=== PATIENT | male | born 1965 | race Caucasian/White ===

== ENCOUNTER 2021-03-10 01:19 | Inpatient (IN) | payer OTHER, SELFPAY ==
[2021-03-10] VITALS (54 sets, daily range): BP systolic 89–127; BP diastolic 49–77; PULSE 58–106; RESP 15–25; TEMP 37–38.4; O2SAT 82–94; BMI 31.0; BMI 31.1
--- NOTE | 2021-03-10 01:40 | XRR_ITS ---
PROCEDURE INFORMATION: Exam: XR Chest Exam date and time: 03/10/2021 1:40 AM Age: 55 years old Clinical indication: Cough and dyspnea; Additional info: SOB TECHNIQUE: Imaging protocol: XR of the chest. Views: 1 view. COMPARISON: CR Chest 1 [place] [id number] 04/28/2018 10:55 PM FINDINGS: Lungs: Low lung volumes. There is increased lung markings and bilateral airspace opacities, consistent with multifocal pneumonia. Pulmonary congestion can this appearance. No large pleural effusion or pneumothorax. Pleural spaces: See Lungs finding. Heart/Mediastinum: Stable cardiomediastinal silhouette. Bones/joints: Unremarkable. XR/XR chest 1V portable [id number] IMPRESSION: Imaging findings of multifocal pneumonia. Pulmonary congestion can have this appearance. Radiation Dose CTDIVOL = (mGy): DLP = (mGy-cm)
--- NOTE | 2021-03-10 01:40 | ECG_ITS ---
[facility] Test Date: 2021-03-10 Pat Name: Grey Naylor Department: Room: Gender: Male Gunner'S Mate: : 1965 Requested By: Alfred Lemos Order Number: [id number] Chase MD: JAME DOWNING Measurements Intervals [place] Rate: 86 P: 18 MT: 155 QRS: -40 QRSD: 138 T: -3 QT: 349 QTc: 418 Interpretive Statements SINUS RHYTHM LEFT AXIS DEVIATION [QRS AXIS < -30] RIGHT BUNDLE BRANCH BLOCK [120+ ms QRS DURATION, UPRIGHT V1, 40+ ms S IN I/aVL/V4/V5/V6] VOLTAGE CRITERIA FOR LVH [MEETS CRITERIA IN ONE OF: R(aVL), S(V1), R(V5), R(V5/V6)+S(V1)] Compared to ECG 04/28/2018 22:49:48 Left-axis deviation now present Left ventricular hypertrophy now present Myocardial infarct finding no longer present Electronically Signed On 03-11-2021 12:54:22 COMPONENT INSPECTOR by JAME DOWNING [id number]
[2021-03-10 01:52] LABS: Basophils % 0.4 %; Eosinophils % 0.4 %; Hematocrit 49.9 % (42.0-52.0); Hemoglobin 17.2 g/dL (11.7-16.6); Mean Corpuscular HGB Conc 34.5 g/dL (30.0-36.0); Mean Corpuscular Hemoglobin 29.9 pg (28.0-34.0); Mean Corpuscular Volume 86.8 fl (80-94); Mean Platelet Volume 8.9 fL (7.4-10.4); Monocytes # 0.3 10^3/uL (0.2-0.9); Monocytes % 3.3 %; Neutrophils # 8.33 10^3/uL (1.8-7.7); Neutrophils % 84.6 %; Nucleated Red Blood Cells % 0 %; Platelet Count 185 10^3/cmm (130-400); Red Blood Count 5.75 10^6/uL (4.1-5.3); Red Cell Distribution Width 12.8 % (12.1-15.1); White Blood Count 9.8 10^3/uL (4.0-10.0)
[2021-03-10] MEDS: dexamethasone 4 mg/mL INJ 6 MG IVP (01:54)
[2021-03-10] MEDS: ondansetron 2 mg/ML SDV 2 mL 4 MG IV (01:55)
[2021-03-10 02:06] LABS: Lactic Sepsis W/Reflex 1.4 mmol/L (0.5-2.2)
[2021-03-10 02:07] LABS: Partial Thromboplastin Time 28.2 SECONDS (23.9-36.7)
[2021-03-10 02:09] LABS: Troponin T (5th) Once 20 ng/L (0-15)
[2021-03-10 02:13] LABS: D Dimer 0.56 ug/mIFEU (0-0.59)
[2021-03-10 02:15] LABS: NT Pro B Type Natriuretic Pept 93 pg/mL (0-125); Procalcitonin 0.18 ng/mL (0-0.5)
[2021-03-10 02:26] LABS: Alanine Aminotransferase 168 U/L (0-41); Albumin Level 3.8 g/dL (3.5-5.2); Alkaline Phosphatase 54 IU/L (40-130); Anion Gap 20.6 (5-19); Aspartate Amino Transferase 101 U/L (0-40); Blood Urea Nitrogen 25 mg/dL (6-20); C Reactive Protein 113.3 mg/L (0.0-4.9); Calcium 8.5 mg/dL (8.5-10.5); Carbon Dioxide 23 mmol/L (22-29); Chloride 93 mmol/L (98-107); Globulin 3.4 g/dL (1.3-4.6); Glomerular Filtration Rate 56.9 mL/min (90-130); Glucose 130 mg/dL (65-115); Osmolality Calculated 282 mOsm/kg (285-295); Potassium 3.6 mmol/L (3.5-5.1); Sodium 133 mmol/L (136-145); Total Bilirubin 0.6 mg/dL (0.15-1.2); Total Protein 7.2 g/dL (6.6-8.7)
[2021-03-10 02:28] LABS: Creatinine Clr Calc Pharmacy 71.4027
[2021-03-10 03:35] LABS: ABG PCO2 36.9 mmHg (35-45); ABG PH Result 7.47 (7.35-7.45); Arterial Blood Gas Hematocrit 49.5 % (42-52); Blood Gas Operator Identificat glc; Blood Gas Sample Site Brachial, right; Blood Gas Sample Type Arterial; HCO3 ABG 26.6 mmol/L (22-26); Oxygen Device NC
--- NOTE | 2021-03-10 03:38 | W.ED.SOB ---
HPI - SOB/Dyspnea General: Chief Complaint: Shortness of Breath/Dyspnea Stated Complaint: SOB Time Seen by Provider: 03/10/21 01:28 History of Present Illness: HPI Narrative: 55-year-old male with a history of coronary disease. He was diagnosed with COVID-19 around 10 days ago. He states he at one point had a fairly severe cough, with pleuritic chest pain. He says most of those symptoms had resolved. He has had some diarrhea. Tonight, he was not feeling well and his checked a pulse ox on him. It read in the mid 80% range on room air. This worried him so he came to the emergency room he does states that he feels somewhat better with oxygen MD elicited complaint: shortness of breath and cough Pertinent past history: other Onset (ago): day(s) Context: recent illness Timing: constant Severity: moderate Exacerbating factors: exertion Relieving factors: oxygen Known history of: other Associated symptoms: Reports cough, dizziness and nausea; Deny abdominal pain, chest pain, diaphoresis, fever(s) or rash Review of Systems Const: Denies: fever(s) or diaphoresis Card: Denies: chest pain GI: Reports: nausea; Denies: abdominal pain Neuro: Reports: dizziness PFS ED PFSH: Medical History (Updated 03/10/21 @ 03:45 by Alfred Doe DO) History of hypertension Hx of arteriosclerotic cardiovascular disease Hx of gastroesophageal reflux (GERD) Hx of myocardial infarction Surgical History (Updated 10/30/20 @ 14:24 by LISA Nolen) History of carpal tunnel release of both wrists Hx of coronary angioplasty Family History Mother CHF (congestive heart failure) COPD (chronic obstructive pulmonary disease) Social History Smoking and tobacco status: former smoker Physical Exam Const: COMMON NORMALS: no acute distress, patient oriented x3 and alert GENERAL APPEARANCE: cooperative HENMT: COMMON NORMALS: normocephalic HEAD & SCALP: normocephalic Eye: COMMON NORMALS: Equal, round and reactive pupils present and EOMs intact bilaterally PUPIL: Yes Equal, round and reactive pupils present Chest: COMMONS NORMALS: normal inspection of the chest Resp: COMMON NORMALS: No retractions and clear to auscultation bilaterally EFFORT & INSPECTION: Yes tachypneic AUSCULTATION: clear to auscultation bilaterally Cardio: COMMON NORMALS: regular rate, regular rhythm and Peripheral pulses 2+ throughout RATE: regular rate RHYTHM: regular rhythm PERIPHERAL PULSES: Peripheral pulses 2+ throughout GI: COMMON NORMALS: Normal to inspection, nondistended, normoactive bowel sounds present and Soft to palpation PALPATION: Yes Soft to palpation Extremity: COMMON NORMALS: no pedal edema Neuro: COMMON NORMALS: patient oriented x3 SENSORIUM/ORIENTATION: Yes alert Course Consultations: Consultation #1: bayron Vital Signs: Vital signs: Vital Signs Temperature 98.6 F 03/10/21 01:20 Pulse Rate 85 03/10/21 01:20 Respiratory Rate 18 03/10/21 01:20 Blood Pressure 113/67 03/10/21 01:20 Pulse Oximetry 85 L 03/10/21 01:20 MDM - SOB/Dyspnea MDM Narrative: Medical decision making narrative: 55-year-old hypoxic male presents via EMS. Off of oxygen here, he was in the low 80s on room air. He is placed on 4 L, and is satting 89 to 90%. Blood gas reflects this as well on that same 4 L. He is afebrile here. White blood cell count 9.8. Hemoglobin 17.2. His D-dimer is negative. His CRP is up. His chest x-ray shows bilateral hazy infiltrates indicative of pneumonitis such as COVID-19. He is given dexamethasone here in oxygen. He will be admitted for hypoxic respiratory failure Lab Data: Labs: Lab Results 03/10/21 03/10/21 03/10/21 01:37 01:37 01:37 WBC 9.8 10^3/uL 10^3/ uL (4.0-10.0) RBC 5.75 10^6/uL H 10 ^6/uL (4.1-5.3) Hgb 17.2 g/dL H g/dL (11.7-16.6) Hct 49.9 % % (42.0-52.0) MCV 86.8 fl fl (80-94) MCH 29.9 pg pg (28.0-34.0) MCHC 34.5 g/dL g/dL (30.0-36.0) RDW 12.8 % % (12.1-15.1) Plt Count 185 10^3/cmm 10^3 /cmm (130-400) MPV 8.9 fL fL (7.4-10.4) Neut % (Auto) 84.6 % % Lymph % (Auto) 10.0 % % Stanton % (Auto) 3.3 % % Eos % (Auto) 0.4 % % Baso % (Auto) 0.4 % % Neut # (Auto) 8.33 10^3/uL H 10 ^3/uL (1.8-7.7) Lymph # (Auto) 1.0 10^3/uL 10^3/ uL (0.8-4.8) Stanton # (Auto) 0.3 10^3/uL 10^3/ uL (0.2-0.9) Eos # (Auto) 0.0 10^3/uL 10^3/ uL (0.0-0.8) Baso # (Auto) 0.0 10^3/uL 10^3/ uL (0.0-0.1) Nucleated RBC % (a uto) 0 % % Nucleated RBCs # 0.0 /100WBC /100W BC PT 14.60 SECONDS SEC ONDS (12.1-14.9) INR 1.10 (0.8-1.2) APTT 28.2 SECONDS SECO NDS (23.9-36.7) D-Dimer 0.56 ug/mIFEU ug/ mIFEU (0-0.59) Specimen Type Sample Site ABG pH ABG pCO2 ABG pO2 ABG HCO3 ABG Base Excess Shmuel Test Hematocrit O2 Delivery Device O2 Liters/Min FiO2 Post Anesthesia Care Unit Nurse ID Sodium 133 mmol/L L mmol /L (136-145) Potassium 3.6 mmol/L mmol/L (3.5-5.1) Chloride 93 mmol/L L mmol/ L (98-107) Carbon Dioxide 23 mmol/L mmol/L (22-29) Anion Gap 20.6 H (5-19) BUN 25 mg/dL H mg/dL (6-20) Creatinine 1.3 mg/dL H mg/dL (0.7-1.2) GFR Calculation 56.9 mL/min L mL/ min (90-130) Glucose 130 mg/dL H mg/dL (65-115) Calculated Osmolal ity 282 mOsm/kg L mOs m/kg (285-295) Lactic Acid Calcium 8.5 mg/dL mg/dL (8.5-10.5) Total Bilirubin 0.6 mg/dL mg/dL (0.15-1.2) AST 101 U/L H U/L (0-40) ALT 168 U/L H U/L (0-41) Alkaline Phosphata se 54 IU/L IU/L (40-130) Troponin T Gen 5 n g/L C-Reactive Protein 113.3 mg/L H mg/L (0.0-4.9) NT-Pro-B Natriuret Pep 93 pg/mL pg/mL (0-125) Total Protein 7.2 g/dL g/dL (6.6-8.7) Albumin 3.8 g/dL g/dL (3.5-5.2) Globulin 3.4 g/dL g/dL (1.3-4.6) Procalcitonin 0.18 ng/mL ng/mL (0-0.5) 03/10/21 03/10/21 03/10/21 01:37 01:37 03:23 WBC RBC Hgb Hct MCV MCH MCHC RDW Plt Count MPV Neut % (Auto) Lymph % (Auto) Stanton % (Auto) Eos % (Auto) Baso % (Auto) Neut # (Auto) Lymph # (Auto) Stanton # (Auto) Eos # (Auto) Baso # (Auto) Nucleated RBC % (a uto) Nucleated RBCs # PT INR APTT D-Dimer Specimen Type Arterial Sample Site Brachial, right ABG pH 7.47 H (7.35-7.45) ABG pCO2 36.9 mmHg mmHg (35-45) ABG pO2 60.0 mmHg L mmHg (80.0-100.0) ABG HCO3 26.6 mmol/L H mmo l/L (22-26) ABG Base Excess 3.0 mmol/L H mmol /L (-2.0-2.0) Shmuel Test N/a Hematocrit 49.5 % % (42-52) O2 Delivery Device Nc O2 Liters/Min 4.0 % % FiO2 36.0 % % Post Anesthesia Care Unit Nurse ID glc Sodium Potassium Chloride Carbon Dioxide Anion Gap BUN Creatinine GFR Calculation Glucose Calculated Osmolal ity Lactic Acid 1.4 mmol/L mmol/L (0.5-2.2) Calcium Total Bilirubin AST ALT Alkaline Phosphata se Troponin T Gen 5 n g/L 20 ng/L H ng/L (0-15) C-Reactive Protein NT-Pro-B Natriuret Pep Total Protein Albumin Globulin Procalcitonin Discharge Plan Discharge Patient Disposition: Admitted As Inpatient Clinical Impression: COVID-19 Respiratory failure with hypoxia Qualifiers: Chronicity: acute Qualified Code(s): J96.01 - Acute respiratory failure with hypoxia Condition: Fair Coding Level of Care Code ED Solar Mechanical Engineer for [facility] Fwd Exam Comprehensive
[2021-03-10] MEDS: enoxaparin 40 mg/0.4 mL Syringe SUBCUT (03:58)
--- NOTE | 2021-03-10 05:31 | P.HP_ITS ---
Providers/Chief Complaint Primary Care Provider: Soraya Villa APN Chief Complaint: SOB History of Present Illness 51-year-old with past medical history significant for hypertension, dyslipidemia, coronary artery disease, gastroesophageal reflux disease, chronic obstructive pulmonary disease and recent diagnosis of COVID-19 10 days prior was presented to the hospital with hypoxia. Patient stated that he was seen by his primary care physician at the onset of symptoms during which time he was treated with a Z-Ike and a course of steroids. He stated his respiratory status had improved however earlier today had checked his pulse ox at home which was noted to be in 80s. Denied fever or chills.Laboratory workup on arrival showed a WBC of 9.8, hemoglobin of 17.2, hematocrit of 49.9 and platelet count of 185. Arterial blood gases showed a pH of 7.47, pCO2 of 36.9, PO2 of 60.0 and a bicarb of 26.6. On 4 L of O2 via nasal cannula. Sodium 133, potassium 3.6, chloride 93, bicarb 23, BUN 25 and a creatinine of 1.3. Lactic acid of 1.4. AST of 101. ALT of 168. Procalcitonin 0.18. Patient was comfortable at the time of my evaluation stating he did not have any respiratory distress.In emergency room patient was given Decadron 6 mg IV x1. Review of Systems General: Reports: 10 or more systems reviewed and unremarkable except in HPI and below Medications/Allergies Home Medications Medication Instructions Recorded Confirmed Last Taken Type coenzyme Q10 10 mg capsule 10 mg PO DAILY cap 11/15/19 03/10/21 Unknown History omega-3 fatty acids 1,000 mg 3,000 mg PO DAILY cap 11/15/19 03/10/21 Unknown History capsule alprazolam 0.25 mg tablet 0.25 mg PO DAILY PRN 02/07/20 03/10/21 Unknown History aspirin 81 mg tablet,delayed 81 mg PO DAILY #90 tab 02/07/20 03/10/21 Unknown Rx release pantoprazole 40 mg tablet,delayed 40 mg PO DAILY #90 tab 06/11/20 03/10/21 Unknown Rx release nitroglycerin 0.4 mg sublingual 0.4 mg SUBLINGUAL Q5M PRN #25 tab 09/17/20 03/10/21 Unknown Rx tablet cinnamon bark 500 mg capsule 500 mg PO DAILY 10/30/20 03/10/21 Unknown History clopidogrel 75 mg tablet 75 mg PO DAILY #90 tab 11/01/20 03/10/21 Unknown Rx isosorbide mononitrate 60 mg 60 mg PO DAILY #90 tab 11/01/20 03/10/21 Unknown Rx tablet,extended release 24 hr lisinopril 40 mg tablet 40 mg PO DAILY #90 tab 11/01/20 03/10/21 Unknown Rx chlorthalidone 25 mg tablet 25 mg PO DAILY #90 tab 11/22/20 03/10/21 Unknown Rx rosuvastatin 20 mg tablet 20 mg PO DAILY #90 tab 12/20/20 03/10/21 Unknown Rx metoprolol tartrate 50 mg tablet 50 mg PO BID #60 tab 01/25/21 03/10/21 Unknown Rx Allergies Allergy/AdvReac Type Severity Reaction Status Date / Time No Known Allergies Allergy Verified 10/30/20 13:31 PFSH Acute PFSH: Medical History (Updated 03/10/21 @ 03:45 by Alfred Doe DO) History of hypertension Hx of arteriosclerotic cardiovascular disease Hx of gastroesophageal reflux (GERD) Hx of myocardial infarction Surgical History (Updated 10/30/20 @ 14:24 by LISA Nolen) History of carpal tunnel release of both wrists Hx of coronary angioplasty Family History Mother CHF (congestive heart failure) COPD (chronic obstructive pulmonary disease) Social History Smoking and tobacco status: former smoker Vitals/I&O/Wt Last Vital Signs Temp 98.6 F 03/10/21 01:20 Pulse 84 03/10/21 02:05 Resp 24 H 03/10/21 02:05 BP 89/55 03/10/21 04:10 Pulse Ox 88 L 03/10/21 04:10 Weight last 48 hrs Weight 95.254 kg Physical Exam Narrative: EXAM NARRATIVE: General : NAD on 4L o2 via NC HEENT; Grossly unremarkable CVS; RRR Chest : Decrease at bases, no distress Abd: Soft, Non-tender. Ext: No edema Data : 03/10/21 01:37 03/10/21 01:37 Micro: Microbiology 03/10/21 01:37 Blood Culture - Preliminary Blood SPECIMEN COLLECTED 03/10/21 01:37 Blood Culture - Preliminary Blood SPECIMEN COLLECTED A&P Assessment and plan (1) COVID-19: Status: Acute (2) History of hypertension: Status: Acute (3) Respiratory failure with hypoxia: Status: Acute Qualifiers: Chronicity: acute Qualified Code(s): J96.01 - Acute respiratory failure with hypoxia Additional A&P Information COVID-19 Pneumonia with hypoxia Decadron 6 mg IV daily x 10 days Procal negative - monitor off abx Monitor covid 19 labs Currently req 4L of o2 via NC Wean as tolerated Home o2 eval prior to discharge COPD Duoneb q6hr Remainder as noted above. DVT ppx Lovenox 40 mg SQ daily Additional Medical Problems Coronary artery disease Hypertension Dyslipidemia GERD Attestations Medical Necessity Statement*: Anticipate > 2 midnight stay in hospital for eval and treatment Time Spent in Patient Care: Greater than 35 minutes (>than 50% of time spent in counselling and/or direct pt care on unit) . Coding Level of Care Code Acute Marine Services Technician for [facility] Diagnoses COVID-19 U07.1 History of hypertension Z86.79 Respiratory failure with hypoxia J96.01 Chronicity: acute
--- NOTE | 2021-03-10 07:41 | PC.NURSE ---
RT called, coming to do breathing tx now.
[2021-03-10] MEDS: ipratropium-albuterol 3 mL Neb INHALATION ×4 (07:58→19:55)
[2021-03-10] MEDS: aspirin 81 mg EC Tablet PO (08:32)
[2021-03-10] MEDS: clopidogrel 75 mg Tablet PO (08:33)
[2021-03-10] MEDS: pantoprazole DR 40 mg Tablet PO (08:33)
[2021-03-10] MEDS: atorvastatin 40 mg Tablet 80 MG PO (08:33)
--- NOTE | 2021-03-10 08:38 | PC.NURSE ---
Pt placed on operator control room prior to this RN assuming care of pt.
--- NOTE | 2021-03-10 08:39 | PC.NURSE ---
Intermittent pneumatic compression not available in the ER.
[2021-03-10] MEDS: metoprolol tartrate 50 mg Tablet PO (08:51)
[2021-03-10] MEDS: acetaminophen 325 mg Tablet 650 MG PO (15:33)
--- NOTE | 2021-03-10 16:30 | PM.PN ---
Subjective Subjective: Interval history: Patient was seen and examined this morning, continues to have shortness of breath, currently requiring 10 Ls supplemental oxygen through HFNC, noted T-max: 101.1 , blood pressure is soft, evening dose of metoprolol has been held. His vitals and labs have been reviewed. Medications: Reviewed: Yes Vitals/I&O/Wt Last Vital Signs Temp 99 F 03/10/21 15:59 Pulse 101 H 03/10/21 16:00 Resp 17 03/10/21 16:00 BP 127/76 03/10/21 15:59 Pulse Ox 88 L 03/10/21 16:00 Weight last 48 hrs Weight 95.572 kg Weight 95.254 kg Physical Exam Const: COMMON NORMALS: patient oriented x3 HENMT: COMMON NORMALS: atraumatic HEAD & SCALP: atraumatic Resp: EFFORT & INSPECTION: Yes tachypneic, Yes respiratory distress and Yes Actively coughing OTHER: Diminished air entry bilaterally Cardio: COMMON NORMALS: regular rate, regular rhythm, S1 normal heart sound present, S2 normal heart sound present, No gallops present (Cardio), No murmurs present (Cardio), No rub (Cardio) and Peripheral pulses 2+ throughout RATE: regular rate RHYTHM: regular rhythm HEART SOUNDS: S1 normal heart sound present and S2 normal heart sound present PERIPHERAL PULSES: Peripheral pulses 2+ throughout GI: COMMON NORMALS: Normal to inspection, nondistended, normoactive bowel sounds present, Soft to palpation, non-tender, No hepatosplenomegaly present and no masses AUSCULTATION: Yes normoactive bowel sounds PALPATION: Yes Soft to palpation and Yes No hepatosplenomegaly present RECTAL EXAM: Yes deferred Extremity: COMMON NORMALS: no clubbing, cyanosis or edema and no pedal edema Neuro: COMMON NORMALS: patient oriented x3 Data : 03/10/21 01:37 03/10/21 01:37 Micro: Microbiology 03/10/21 01:37 Blood Culture - Preliminary Blood SPECIMEN COLLECTED 03/10/21 01:37 Blood Culture - Preliminary Blood SPECIMEN COLLECTED A&P Assessment and plan (1) COVID-19: Status: Acute (2) History of hypertension: Status: Acute (3) Respiratory failure with hypoxia: Status: Acute Qualifiers: Chronicity: acute Qualified Code(s): J96.01 - Acute respiratory failure with hypoxia Additional A&P Information Acute hypoxic respiratory failure secondary to Covid pneumonia. Monitor inflammatory markers : ESR , CRP, LDH, ferritin, D-dimer. Monitor x-ray, chest , ABG, blood cultures. Procal negative. Remdesivir 5-day course Decadron 6 mg IV daily x 10 days Consider tocilizumab DuoNebs, Advair inhaler Empirically on ceftriaxone and azithromycin Ascorbic acid and Zinc Lovenox 40 subcu daily Supplemental oxygen as needed COPD not in exacerbation Duoneb q6hr Remainder as noted above. DVT ppx Lovenox 40 mg SQ daily Additional Medical Problems Coronary artery disease Hypertension Dyslipidemia GERD Attestations Medical Necessity Statement*: Patient needs to be in hospital for management of Covid pneumonia Coding Level of Care Code Acute Business And Financial Counsel for [facility] Fwd Exam Detailed Diagnoses COVID-19 U07.1 History of hypertension Z86.79 Respiratory failure with hypoxia J96.01 Chronicity: acute
[2021-03-10 17:01] LABS: INR 1.12 (0.8-1.2)
[2021-03-10] MEDS: azithromycin 500 MG in sodium chloride 0.9% 250 ML 250 MG IV (17:34)
[2021-03-10] MEDS: ascorbic acid 500 mg Tablet 1000 MG PO (17:39)
[2021-03-10] MEDS: remdesivir 200 MG in sodium chloride 0.9% (100 ml) 60 ML 100 MG IV (18:29)
[2021-03-10] MEDS: cefTRIAXone 1,000 MG in sodium chloride 0.9% (plus) 50 ML 100 MG IV (19:17)
[2021-03-11] VITALS (14 sets, daily range): BP systolic 90–132; BP diastolic 47–87; PULSE 68–100; RESP 16–20; TEMP 36.6–37.1; O2SAT 86–96
[2021-03-11] MEDS: enoxaparin 40 mg/0.4 mL Syringe SUBCUT (04:07)
[2021-03-11] MEDS: acetaminophen 325 mg Tablet 650 MG PO (04:10)
[2021-03-11 07:02] LABS: Basophils % 0.1 %; Eosinophils % 0.1 %; Hematocrit 45.8 % (42.0-52.0); Hemoglobin 15.3 g/dL (11.7-16.6); Lymphocytes # 1.3 10^3/uL (0.8-4.8); Mean Corpuscular HGB Conc 33.4 g/dL (30.0-36.0); Mean Corpuscular Hemoglobin 29.2 pg (28.0-34.0); Mean Corpuscular Volume 87.4 fl (80-94); Mean Platelet Volume 9.1 fL (7.4-10.4); Monocytes # 0.3 10^3/uL (0.2-0.9); Monocytes % 3.2 %; Neutrophils % 83.1 %; Nucleated Red Blood Cells % 0 %; Platelet Count 171 10^3/cmm (130-400); Red Blood Count 5.24 10^6/uL (4.1-5.3); Red Cell Distribution Width 13.1 % (12.1-15.1); White Blood Count 9.6 10^3/uL (4.0-10.0)
[2021-03-11 07:32] LABS: Alanine Aminotransferase 121 U/L (0-41); Albumin Level 3.3 g/dL (3.5-5.2); Alkaline Phosphatase 51 IU/L (40-130); Aspartate Amino Transferase 72 U/L (0-40); Blood Urea Nitrogen 25 mg/dL (6-20); Calcium 8.4 mg/dL (8.5-10.5); Carbon Dioxide 26 mmol/L (22-29); Chloride 98 mmol/L (98-107); Globulin 2.5 g/dL (1.3-4.6); Glucose 93 mg/dL (65-115); Magnesium 1.7 mg/dL (1.7-2.3); NT Pro B Type Natriuretic Pept 33 pg/mL (0-125); Osmolality Calculated 286 mOsm/kg (285-295); Sodium 136 mmol/L (136-145); Total Bilirubin 0.5 mg/dL (0.15-1.2); Total Protein 5.8 g/dL (6.6-8.7)
[2021-03-11 07:33] LABS: Anion Gap 15.9 (5-19); Potassium 3.9 mmol/L (3.5-5.1); Procalcitonin 0.17 ng/mL (0-0.5)
[2021-03-11] MEDS: ipratropium-albuterol 3 mL Neb INHALATION ×4 (08:30→21:19)
[2021-03-11] MEDS: ascorbic acid 500 mg Tablet 1000 MG PO ×2 (09:10→17:23)
[2021-03-11] MEDS: clopidogrel 75 mg Tablet PO (09:11)
[2021-03-11] MEDS: aspirin 81 mg EC Tablet PO (09:11)
[2021-03-11] MEDS: zinc gluconate 50 mg Tablet PO (09:11)
[2021-03-11] MEDS: metoprolol tartrate 50 mg Tablet PO ×2 (09:11→20:21)
[2021-03-11] MEDS: isosorbide mononitrate ER 60 mg Tablet PO (09:11)
[2021-03-11] MEDS: atorvastatin 40 mg Tablet 80 MG PO (09:11)
[2021-03-11] MEDS: pantoprazole DR 40 mg Tablet PO (09:11)
[2021-03-11] MEDS: dexamethasone 10 mg/mL INJ 6 MG IVP (09:12)
[2021-03-11 10:52] LABS: NT Pro B Type Natriuretic Pept 26 pg/mL (0-125)
[2021-03-11] MEDS: FUROsemide 10 mg/mL SDV 4mL 40 MG IVP (11:40)
[2021-03-11] MEDS: azithromycin 500 MG in sodium chloride 0.9% 250 ML 250 MG IV (16:24)
[2021-03-11] MEDS: cefTRIAXone 1,000 MG in sodium chloride 0.9% (plus) 50 ML 100 MG IV (17:23)
[2021-03-11] MEDS: remdesivir 100 MG in sodium chloride 0.9% (100 ml) 100 ML IV (17:23)
--- NOTE | 2021-03-11 18:24 | PM.PN ---
Subjective Subjective: Interval history: Patient was seen this morning, currently on 12 L, denies any fevers, no chills, no nausea, vomiting does report weakness,, he tells me he gets tired getting up out of bed, no chest pain Medications: Reviewed: Yes Vitals/I&O/Wt Last Vital Signs Temp 98.0 F 03/11/21 16:14 Pulse 81 03/11/21 16:14 Resp 18 03/11/21 16:14 BP 132/87 03/11/21 16:14 Pulse Ox 90 03/11/21 16:14 03/11/21 03/11/21 03/11/21 06:59 14:59 22:59 Output Total 2200 / 2200 Balance -2200 / -2200 Weight last 48 hrs Weight 95.572 kg Weight 95.254 kg Physical Exam Const: COMMON NORMALS: no acute distress and patient oriented x3 Resp: COMMON NORMALS: normal respiratory effort, No retractions, No use of accessory muscles and clear to auscultation bilaterally AUSCULTATION: clear to auscultation bilaterally Cardio: COMMON NORMALS: regular rate, regular rhythm, S1 normal heart sound present and S2 normal heart sound present RATE: regular rate RHYTHM: regular rhythm HEART SOUNDS: S1 normal heart sound present and S2 normal heart sound present GI: COMMON NORMALS: Normal to inspection, nondistended, normoactive bowel sounds present, Soft to palpation and non-tender PALPATION: Yes Soft to palpation Extremity: COMMON NORMALS: no pedal edema Neuro: COMMON NORMALS: patient oriented x3 Psych: COMMON NORMALS: mental status grossly normal Data : 03/11/21 06:25 03/11/21 06:25 Micro: Microbiology 03/10/21 01:37 Blood Culture - Preliminary Blood NEGATIVE TO DATE 03/10/21 01:37 Blood Culture - Preliminary Blood NEGATIVE TO DATE A&P Assessment and plan (1) COVID-19: Status: Acute (2) History of hypertension: Status: Acute (3) Respiratory failure with hypoxia: Status: Acute Qualifiers: Chronicity: acute Qualified Code(s): J96.01 - Acute respiratory failure with hypoxia Additional A&P Information Acute hypoxic respiratory failure secondary to Covid pneumonia. Monitor inflammatory markers : ESR , CRP, LDH, ferritin, D-dimer. Monitor x-ray, chest , ABG, blood cultures. Procal negative. Remdesivir 5-day course Decadron 6 mg IV daily x 10 days Start baricitinib Will order CT angiogram of the chest, cardiac echocardiogram DuoNebs, Advair inhaler Empirically on ceftriaxone and azithromycin Ascorbic acid and Zinc Lovenox 40 subcu daily Supplemental oxygen as needed COPD not in exacerbation Duoneb q6hr Remainder as noted above. DVT ppx Lovenox 40 mg SQ daily Additional Medical Problems Coronary artery disease, continue aspirin, Plavix troponin 20 Hypertension Dyslipidemia GERD Attestations Medical Necessity Statement*: patient requires hospitalization, for covid pneumiae Coding Level of Care Code Acute Transport Manager for [facility] Diagnoses COVID-19 U07.1 History of hypertension Z86.79 Respiratory failure with hypoxia J96.01 Chronicity: acute
[2021-03-12] VITALS (16 sets, daily range): BP systolic 101–129; BP diastolic 56–80; PULSE 60–89; RESP 16–19; TEMP 36.5–37.2; O2SAT 84–94
[2021-03-12] MEDS: enoxaparin 40 mg/0.4 mL Syringe SUBCUT (02:17)
[2021-03-12 03:35] LABS: ABG PCO2 40.5 mmHg (35-45); ABG PH Result 7.47 (7.35-7.45); Arterial Blood Gas Hematocrit 49.7 % (42-52); Base Excess ABG 4.9 mmol/L (-2.0-2.0); Blood Gas Sample Site Brachial, right; Blood Gas Sample Type Arterial; HCO3 ABG 29.1 mmol/L (22-26); PO2 ABG 51.8 mmHg (80.0-100.0)
--- NOTE | 2021-03-12 05:00 | USCV_ITS ---
Grey Naylor Age: 55 Gender: M : 1965 Exam Date: 03/12/2021 13:27 Ordering Phys: Naukl Grover MD Technologist: Valarie Islas Exam Location: [facility] [place]_ Indication: SOB COVID BP: 116 / 76 HR: 68 Rhythm: Sinus Technical Quality: Adequate MEASUREMENTS (Male / Female) Normal Values 2D ECHO LV Diastolic Diameter PLAX 3.9 cm 4.2 - 5.9 / 3.9 - 5.3 cm LV Systolic Diameter PLAX 2.7 cm IVS Diastolic Thickness 1.6 cm 0.6 - 1.0 / 0.6 - 0.9 cm IVS Systolic Thickness 2.3 cm LVPW Diastolic Thickness 1.8 cm 0.6 - 1.0 / 0.6 - 0.9 cm LVPW Systolic Thickness 2.2 cm LVOT Diameter 2.0 cm LV Ejection Fraction 2D Teich 59.3 % LV Ejection Fraction MOD 2C 64.6 % LV Ejection Fraction 2C AL 65.9 % LA Diameter 3.4 cm LA Width 3.3 cm LA Height 4.4 cm RA Width 3.3 cm RA Height 5.0 cm Aorta at Sinotubular Diameter 2.6 cm M-MODE Aortic Annulus Diameter 3.2 cm LA Ao Ratio MM 1.1 MV E Point Septal Separation 0.4 cm DOPPLER AV Peak Velocity 145.0 cm/s LVOT Peak Velocity 135.0 cm/s AV Area Cont Eq vti 2.9 cm squared AV Area Cont Eq pk 3.0 cm squared MV Area PHT 2.3 cm squared Mitral E to A Ratio 0.7 MV E' Velocity 35.0 cm/s Mitral E to MV E' Ratio 6.7 Mitral E to LV E' Lateral Ratio 5.3 Mitral E to LV E' Septal Ratio 9.1 TR Peak Velocity 113.9 cm/s TR Peak Gradient 5.2 mmHg TR Mean Velocity 101.4 cm/s TR Mean Gradient 4.0 mmHg TR Velocity Time Integral 22.0 cm TV Peak E Velocity 46.0 cm/s PV Peak Velocity 92.0 cm/s RV Acceleration Time 0.1 s RV Ejection Time 0.3 s RV AcT/ET 0.3 FINDINGS Left Ventricle Normal left ventricular cavity size. Normal left ventricular systolic function. No regional wall motion abnormalities. Left ventricular ejection fraction is estimated at 60 %. Grade I/IV diastolic dysfunction (abnormal relaxation filling pattern), normal to mildly elevated filling pressures. Right Ventricle The right ventricle is normal in size and function. RVSP could not be calculated due to incomplete tricuspid regurgitation velocity profile. Right Atrium The right atrium is normal in size. Left Atrium The left atrium is normal in size. Mitral Valve Moderately thickened mitral valve. No mitral valve stenosis. Trace mitral valve regurgitation. Aortic Valve Moderate aortic valve calcification. No aortic valve stenosis. No aortic valve regurgitation. Tricuspid Valve Structurally normal tricuspid valve without significant stenosis or regurgitation. Pulmonic Valve Structurally normal pulmonic valve without significant stenosis. There is no pulmonic regurgitation. Pericardium Normal pericardium without effusion. Aorta Normal ascending aorta dimension. CONCLUSIONS 1-Normal left ventricular cavity size. Normal left ventricular systolic function. No regional wall motion abnormalities. Left ventricular ejection fraction is estimated at 60 %. Grade I/IV diastolic dysfunction (abnormal relaxation filling pattern), normal to mildly elevated filling pressures. 2-The right ventricle is normal in size and function. RVSP could not be calculated due to incomplete tricuspid regurgitation velocity profile. 3-Moderately thickened mitral valve. No mitral valve stenosis. Trace mitral valve regurgitation. 4-Moderate aortic valve calcification. No aortic valve stenosis. No aortic valve regurgitation. 5-There is no pericardial effusion. 6-Right atrial pressure is around 5 mm of mercury. 7-No significant change since the prior echocardiogram study of 03/27/2017. Sonya Zavaleta MD (Electronically Signed) Final Date: 13 March 2021 16:48 S
[2021-03-12 06:53] LABS: Basophils % 0.1 %; Hematocrit 44.9 % (42.0-52.0); Hemoglobin 15.3 g/dL (11.7-16.6); Lymphocytes # 1.7 10^3/uL (0.8-4.8); Lymphocytes % 25.2 %; Mean Corpuscular HGB Conc 34.1 g/dL (30.0-36.0); Mean Corpuscular Hemoglobin 29.5 pg (28.0-34.0); Mean Corpuscular Volume 86.5 fl (80-94); Monocytes # 0.5 10^3/uL (0.2-0.9); Monocytes % 7.1 %; Neutrophils # 4.63 10^3/uL (1.8-7.7); Nucleated Red Blood Cells % 0 %; Platelet Count 214 10^3/cmm (130-400); Red Blood Count 5.19 10^6/uL (4.1-5.3); Red Cell Distribution Width 13.1 % (12.1-15.1); White Blood Count 6.9 10^3/uL (4.0-10.0)
[2021-03-12 07:00] LABS: INR 1.15 (0.8-1.2)
[2021-03-12 07:03] LABS: D Dimer 0.29 ug/mIFEU (0-0.59)
[2021-03-12 07:24] LABS: NT Pro B Type Natriuretic Pept 15 pg/mL (0-125); Procalcitonin 0.16 ng/mL (0-0.5)
[2021-03-12 07:36] LABS: Alanine Aminotransferase 118 U/L (0-41); Albumin Level 3.4 g/dL (3.5-5.2); Alkaline Phosphatase 49 IU/L (40-130); Anion Gap 15.9 (5-19); Aspartate Amino Transferase 71 U/L (0-40); Blood Urea Nitrogen 31 mg/dL (6-20); C Reactive Protein 134.9 mg/L (0.0-4.9); Calcium 8.4 mg/dL (8.5-10.5); Carbon Dioxide 26 mmol/L (22-29); Chloride 98 mmol/L (98-107); Creatine Phosphokinase 113 U/L (39-308); Globulin 2.4 g/dL (1.3-4.6); Glucose 134 mg/dL (65-115); Lactate Dehydrogenase 582 U/L (135-225); Osmolality Calculated 291 mOsm/kg (285-295); Phosphorus 3.1 mg/dL (2.5-4.5); Potassium 3.9 mmol/L (3.5-5.1); Sodium 136 mmol/L (136-145); Total Bilirubin 0.5 mg/dL (0.15-1.2); Total Protein 5.8 g/dL (6.6-8.7)
[2021-03-12 07:48] LABS: Ferritin 2613 ng/mL (30-400)
[2021-03-12] MEDS: iohexol 350 mg/mL 100 mL Btl IV (08:14)
[2021-03-12] MEDS: aspirin 81 mg EC Tablet PO (08:41)
[2021-03-12] MEDS: ascorbic acid 500 mg Tablet 1000 MG PO ×2 (08:41→17:06)
[2021-03-12] MEDS: clopidogrel 75 mg Tablet PO (08:41)
[2021-03-12] MEDS: zinc gluconate 50 mg Tablet PO (08:41)
[2021-03-12] MEDS: atorvastatin 40 mg Tablet 80 MG PO (08:41)
[2021-03-12] MEDS: isosorbide mononitrate ER 60 mg Tablet PO (08:41)
[2021-03-12] MEDS: dexamethasone 10 mg/mL INJ 6 MG IVP (08:41)
[2021-03-12] MEDS: pantoprazole DR 40 mg Tablet PO (08:41)
[2021-03-12] MEDS: metoprolol tartrate 50 mg Tablet PO ×2 (08:42→20:20)
[2021-03-12] MEDS: ipratropium-albuterol 3 mL Neb INHALATION ×4 (09:08→21:28)
[2021-03-12] MEDS: FUROsemide 10 mg/mL SDV 4mL 40 MG IVP (09:30)
--- NOTE | 2021-03-12 12:17 | P.PN_ITS ---
Subjective Subjective: Interval history: Patient was seen this morning, he continues to complain of tiredness, no chest pain, no palpitations, no fevers, chills, nausea, vomiting, his appetite is still poor Vitals/I&O/Wt Last Vital Signs Temp 98.5 F 03/12/21 12:00 Pulse 71 03/12/21 12:00 Resp 18 03/12/21 12:00 BP 107/65 03/12/21 12:00 Pulse Ox 88 L 03/12/21 12:00 03/11/21 03/12/21 03/12/21 22:59 06:59 14:59 Intake Total 400 / 400 300 / 700 120 / 120 Output Total 500 / 2700 300 / 3000 Balance -100 / -2300 0 / -2300 120 / 120 Weight last 48 hrs Weight 92.442 kg Weight 95.572 kg Physical Exam Const: COMMON NORMALS: no acute distress and patient oriented x3 Resp: COMMON NORMALS: normal respiratory effort, No retractions, No use of accessory muscles and clear to auscultation bilaterally AUSCULTATION: clear to auscultation bilaterally Cardio: COMMON NORMALS: regular rate, regular rhythm, S1 normal heart sound present and S2 normal heart sound present RATE: regular rate RHYTHM: regular rhythm HEART SOUNDS: S1 normal heart sound present and S2 normal heart sound present GI: COMMON NORMALS: Normal to inspection, nondistended, normoactive bowel sounds present, Soft to palpation and non-tender PALPATION: Yes Soft to palpation Extremity: COMMON NORMALS: no pedal edema Neuro: COMMON NORMALS: patient oriented x3 Psych: COMMON NORMALS: mental status grossly normal Data : 03/12/21 06:13 03/12/21 06:13 A&P Assessment and plan (1) COVID-19: Status: Acute (2) History of hypertension: Status: Acute (3) Respiratory failure with hypoxia: Status: Acute Qualifiers: Chronicity: acute Qualified Code(s): J96.01 - Acute respiratory failure with hypoxia Additional A&P Information Acute hypoxic respiratory failure secondary to Covid pneumonia. Monitor inflammatory markers : ESR , CRP, LDH, ferritin, D-dimer. Monitor x-ray, chest , ABG, blood cultures. Procal negative. Remdesivir 5-day course Decadron 6 mg IV daily x [address] imaging 05/[address] angiogram of the chest, cardiac echocardiogram DuoNebs, Advair inhaler Empirically on ceftriaxone and azithromycin Ascorbic acid and Zinc Lovenox 40 subcu daily Supplemental oxygen as needed COPD not in exacerbation Duoneb q6hr Remainder as noted above. DVT ppx Lovenox 40 mg SQ daily Additional Medical Problems Coronary artery disease, continue aspirin, Plavix troponin 20 Hypertension Dyslipidemia GERD Attestations Medical Necessity Statement*: Patient requires hospitalization for COVID-19 pneumonia Coding Level of Care Code Acute Cloth Neutralizer for [facility] Diagnoses COVID-19 U07.1 History of hypertension Z86.79 Respiratory failure with hypoxia J96.01 Chronicity: acute
[2021-03-12] MEDS: cefTRIAXone 1,000 MG in sodium chloride 0.9% (plus) 50 ML 100 MG IV (17:06)
[2021-03-12] MEDS: remdesivir 100 MG in sodium chloride 0.9% (100 ml) 100 ML IV (17:07)
[2021-03-12] MEDS: azithromycin 500 MG in sodium chloride 0.9% 250 ML 250 MG IV (17:55)
--- NOTE | 2021-03-12 18:25 | CT_ITS ---
WS: [id number] CTA OF THE CHEST WITH PULMONARY EMBOLISM PROTOCOL TECHNIQUE: High-resolution contrast enhanced CTA of the chest with coronal and sagittal reformatted i mages with pulmonary embolism protocol. MIP images are also reviewed. CLINICAL INFORMATION: sob COMPARISON: None. DLP: 505.[address] scans at [facility] use at least one of these dose optimization techniques: automated e xposure control; mA and/or kV adjustment per patient size (includes targeted exams where dose is matc hed to clinical indication); or iterative reconstruction. FINDINGS: Diffuse hazy groundglass infiltrates throughout both lungs compatible with COVID 19 Pneumonia. No sig nificant pleural fluid. Enlarged anterior mediastinal and peribronchial lymph nodes likely reactive. Proximal main pulmonary arteries are normal. Segmental and subsegmental pulmonary arteries are normal . No evidence of pulmonary embolus. Normal caliber thoracic aorta. Adrenal glands are normal. Small esophageal hiatal hernia. Normal thoracic spine. CT/CT angio chest PE protcl [id number] IMPRESSION: 1. Diffuse bilateral hazy groundglass infiltrates compatible with COVID 19 Pne umonia 2. Main pulmonary arteries are normal. No evidence of pulmonary embolus. 3. Reactive mediastinal and paratracheal lymph nodes. 4. Small esophageal hiatal hernia.
[2021-03-12 20:34] LABS: Oxygen Device HIGH FLOW
[2021-03-12] MEDS: ALPRAZolam 0.5 mg Tablet 0.25 MG PO (23:36)
[2021-03-13] VITALS (13 sets, daily range): BP systolic 110–123; BP diastolic 62–77; PULSE 54–79; RESP 14–20; TEMP 36.4–36.8; O2SAT 88–94
[2021-03-13] MEDS: enoxaparin 40 mg/0.4 mL Syringe SUBCUT (03:31)
[2021-03-13 04:06] LABS: ABG PCO2 40.5 mmHg (35-45); Base Excess ABG 7.2 mmol/L (-2.0-2.0); Blood Gas Sample Site Brachial, right; Blood Gas Sample Type Arterial; HCO3 ABG 31.2 mmol/L (22-26); Oxygen Device BIPAP; PO2 ABG 57.3 mmHg (80.0-100.0)
[2021-03-13 06:41] LABS: Basophils % 0.2 %; Hematocrit 45.3 % (42.0-52.0); Hemoglobin 15.5 g/dL (11.7-16.6); Lymphocytes # 1.5 10^3/uL (0.8-4.8); Mean Corpuscular HGB Conc 34.2 g/dL (30.0-36.0); Mean Corpuscular Volume 87.6 fl (80-94); Monocytes # 0.6 10^3/uL (0.2-0.9); Monocytes % 8.6 %; Neutrophils # 4.58 10^3/uL (1.8-7.7); Neutrophils % 68.7 %; Nucleated Red Blood Cells % 0 %; Platelet Count 237 10^3/cmm (130-400); Red Blood Count 5.17 10^6/uL (4.1-5.3); White Blood Count 6.7 10^3/uL (4.0-10.0)
[2021-03-13 07:02] LABS: INR 1.05 (0.8-1.2)
[2021-03-13 07:05] LABS: D Dimer 0.29 ug/mIFEU (0-0.59)
[2021-03-13 07:16] LABS: NT Pro B Type Natriuretic Pept 10 pg/mL (0-125); Procalcitonin 0.11 ng/mL (0-0.5)
[2021-03-13 07:28] LABS: Alanine Aminotransferase 112 U/L (0-41); Albumin Level 3.4 g/dL (3.5-5.2); Alkaline Phosphatase 48 IU/L (40-130); Aspartate Amino Transferase 68 U/L (0-40); Blood Urea Nitrogen 37 mg/dL (6-20); C Reactive Protein 60.2 mg/L (0.0-4.9); Calcium 8.5 mg/dL (8.5-10.5); Carbon Dioxide 27 mmol/L (22-29); Chloride 98 mmol/L (98-107); Creatine Phosphokinase 109 U/L (39-308); Globulin 2.4 g/dL (1.3-4.6); Glucose 153 mg/dL (65-115); Magnesium 2.1 mg/dL (1.7-2.3); Osmolality Calculated 298 mOsm/kg (285-295); Phosphorus 3.8 mg/dL (2.5-4.5); Sodium 138 mmol/L (136-145); Total Bilirubin 0.5 mg/dL (0.15-1.2); Total Protein 5.8 g/dL (6.6-8.7)
[2021-03-13 07:35] LABS: Anion Gap 16.9 (5-19); Lactate Dehydrogenase 608 U/L (135-225); Potassium 3.9 mmol/L (3.5-5.1)
[2021-03-13 07:43] LABS: Ferritin 2319 ng/mL (30-400)
[2021-03-13] MEDS: dexamethasone 10 mg/mL INJ 6 MG IVP (07:43)
[2021-03-13 07:45] LABS: Slide Review Slide Review Perform
[2021-03-13] MEDS: ipratropium-albuterol 3 mL Neb INHALATION ×4 (07:50→21:56)
[2021-03-13] MEDS: isosorbide mononitrate ER 60 mg Tablet PO (08:28)
[2021-03-13] MEDS: zinc gluconate 50 mg Tablet PO (08:28)
[2021-03-13] MEDS: pantoprazole DR 40 mg Tablet PO (08:28)
[2021-03-13] MEDS: metoprolol tartrate 50 mg Tablet PO ×2 (08:28→20:34)
[2021-03-13] MEDS: atorvastatin 40 mg Tablet 80 MG PO (08:28)
[2021-03-13] MEDS: aspirin 81 mg EC Tablet PO (08:28)
[2021-03-13] MEDS: ascorbic acid 500 mg Tablet 1000 MG PO ×2 (08:29→17:28)
[2021-03-13] MEDS: clopidogrel 75 mg Tablet PO (08:29)
--- NOTE | 2021-03-13 16:13 | P.PN_ITS ---
Subjective Subjective: Interval history: Patient was seen this morning, his shortness of breath has improved, his fatigue has improved, he is motivated to get out of the hospital, as he is purchased a new Corvette, and he wants to drive that someday, denies any chest pain, no palpitations Vitals/I&O/Wt Last Vital Signs Temp 98.3 F 03/13/21 12:00 Pulse 68 03/13/21 16:07 Resp 16 03/13/21 16:07 BP 112/62 03/13/21 12:00 Pulse Ox 91 03/13/21 16:07 03/13/21 03/13/21 03/13/21 06:59 14:59 22:59 Intake Total 50 / 1050 360 / 360 Output Total 350 / 350 Balance 50 / -250 Weight last 48 hrs Weight 92.442 kg Weight 92.442 kg Physical Exam Const: COMMON NORMALS: no acute distress and patient oriented x3 Resp: COMMON NORMALS: normal respiratory effort, No retractions, No use of accessory muscles and clear to auscultation bilaterally AUSCULTATION: clear to auscultation bilaterally Cardio: COMMON NORMALS: regular rate, regular rhythm, S1 normal heart sound present and S2 normal heart sound present RATE: regular rate RHYTHM: regular rhythm HEART SOUNDS: S1 normal heart sound present and S2 normal heart sound present GI: COMMON NORMALS: Normal to inspection, nondistended, normoactive bowel sounds present, Soft to palpation and non-tender PALPATION: Yes Soft to palpation Extremity: COMMON NORMALS: no pedal edema Neuro: COMMON NORMALS: patient oriented x3 Psych: COMMON NORMALS: mental status grossly normal Data : 03/13/21 06:14 03/13/21 06:14 A&P Assessment and plan (1) COVID-19: Status: Acute (2) History of hypertension: Status: Acute (3) Respiratory failure with hypoxia: Status: Acute Qualifiers: Chronicity: acute Qualified Code(s): J96.01 - Acute respiratory failure with hypoxia Additional A&P Information Acute hypoxic respiratory failure secondary to Covid pneumonia. Monitor inflammatory markers : ESR , CRP, LDH, ferritin, D-dimer. Monitor x-ray, chest , ABG, blood cultures. Procal negative. Remdesivir 5-day course Decadron 6 mg IV daily x 10 days Baricitinib 05/[address] angiogram of the chest: 1. Diffuse bilateral hazy groundglass infiltrates compatible with COVID 19 Pneumonia 2. Main pulmonary arteries are normal. No evidence of pulmonary embolus. 3. Reactive mediastinal and paratracheal lymph nodes. cardiac echocardiogram pending DuoNebs, Advair inhaler Empirically on ceftriaxone and azithromycin Ascorbic acid and Zinc Lovenox 40 subcu daily Supplemental oxygen as needed COPD not in exacerbation Duoneb q6hr Remainder as noted above. DVT ppx Lovenox 40 mg SQ daily Additional Medical Problems Coronary artery disease, continue aspirin, Plavix troponin 20 Hypertension Dyslipidemia GERD Attestations Medical Necessity Statement*: Patient requires hospitalization for COVID-19 pneumonia Coding Level of Care Code Acute Supervisor General for [facility] Diagnoses COVID-19 U07.1 History of hypertension Z86.79 Respiratory failure with hypoxia J96.01 Chronicity: acute
[2021-03-13 17:07] LABS: Erythrocyte Sedimentation Rate 113 mm/hr (0-10)
[2021-03-13] MEDS: azithromycin 500 MG in sodium chloride 0.9% 250 ML 250 MG IV (17:27)
[2021-03-13] MEDS: cefTRIAXone 1,000 MG in sodium chloride 0.9% (plus) 50 ML 100 MG IV (17:36)
--- NOTE | 2021-03-13 17:43 | ECG_ITS ---
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 Measurements Intervals [place] Rate: 71 P: 13 TN: 169 QRS: -33 QRSD: 148 T: 1 QT: 426 QTc: 465 Interpretive Statements SINUS RHYTHM LEFT AXIS DEVIATION [QRS AXIS < -30] RIGHT BUNDLE BRANCH BLOCK [120+ ms QRS DURATION, UPRIGHT V1, 40+ ms S IN I/aVL/V4/V5/V6] MINIMAL VOLTAGE CRITERIA FOR LVH, CONSIDER NORMAL VARIANT [MEETS CRITERIA IN ONE OF: R(aVL), S(V1), R(V5), R(V5/V6)+S(V1)] Compared to ECG 03/10/2021 02:06:14 No significant changes Electronically Signed On 03-13-2021 23:44:45 FISH GRADER by Andie Camacho M.D. [email or web address] point mature adult care unitClinithinkcleveland clinic mercy hospital.Marco Vasco/store/OM/[id number]
[2021-03-13] MEDS: remdesivir 100 MG in sodium chloride 0.9% (100 ml) 100 ML IV (18:06)
[2021-03-13 19:00] LABS: Troponin(5th) Baseline 9 ng/L (0-15)
[2021-03-13 20:40] LABS: Troponin 5 2HR 9.11 ng/L (0-15); Troponin 5 2HR Delta 0.11 ABS# (0-10)
--- NOTE | 2021-03-13 22:19 | ECG_ITS ---
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 Measurements Intervals [place] Rate: 72 P: 14 HI: 166 QRS: -32 QRSD: 144 T: -1 QT: 421 QTc: 461 Interpretive Statements SINUS RHYTHM RIGHT BUNDLE BRANCH BLOCK [120+ ms QRS DURATION, UPRIGHT V1, 40+ ms S IN I/aVL/V4/V5/V6] MINIMAL VOLTAGE CRITERIA FOR LVH, CONSIDER NORMAL VARIANT [MEETS CRITERIA IN ONE OF: R(aVL), S(V1), R(V5), R(V5/V6)+S(V1)] INFERIOR MYOCARDIAL INFARCTION , PROBABLY OLD [40+ ms Q WAVE AND/OR ST/T ABNORMALITY IN II/aVF] Compared to ECG 03/13/2021 18:11:42 Myocardial infarct finding now present Left-axis deviation no longer present Electronically Signed On 03-13-2021 23:57:45 V BELT SKIVER by Andie Camacho M.D. [email or web address] health centerIdun Pharmaceuticalsmercy health urbana hospital.[employer]/store/OM/[id number]
--- NOTE | 2021-03-13 23:43 | ECG_ITS ---
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 Measurements Intervals [place] Rate: 53 P: 21 SC: 156 QRS: -3 QRSD: 145 T: 26 QT: 470 QTc: 445 Interpretive Statements SINUS BRADYCARDIA WITH OCCASIONAL VENTRICULAR PREMATURE COMPLEXES RIGHT BUNDLE BRANCH BLOCK [120+ ms QRS DURATION, UPRIGHT V1, 40+ ms S IN I/aVL/V4/V5/V6] Compared to ECG 03/13/2021 22:11:26 Ventricular premature complex(es) now present Sinus rhythm no longer present Myocardial infarct finding no longer present Electronically Signed On 03-14-2021 16:09:00 TAXONOMIST by Mary Conley M.D. [email or web address] Association of Bar & Lounge Establishmentschoctaw health centerStockpulsekettering health hamilton.Lalina/store/OM/[id number]
[2021-03-14] VITALS (13 sets, daily range): BP systolic 97–124; BP diastolic 63–80; PULSE 55–88; RESP 12–20; TEMP 36.4–37.1; O2SAT 87–98
[2021-03-14 01:06] LABS: Basophils % 0.1 %; Eosinophils % 0.1 %; Hematocrit 44.3 % (42.0-52.0); Hemoglobin 15.1 g/dL (11.7-16.6); Lymphocytes # 1.8 10^3/uL (0.8-4.8); Lymphocytes % 22.7 %; Mean Corpuscular HGB Conc 34.1 g/dL (30.0-36.0); Mean Corpuscular Hemoglobin 29.4 pg (28.0-34.0); Mean Corpuscular Volume 86.2 fl (80-94); Mean Platelet Volume 8.9 fL (7.4-10.4); Monocytes # 0.8 10^3/uL (0.2-0.9); Monocytes % 9.4 %; Neutrophils # 5.43 10^3/uL (1.8-7.7); Neutrophils % 67.5 %; Nucleated Red Blood Cells % 0 %; Platelet Count 247 10^3/cmm (130-400); Red Blood Count 5.14 10^6/uL (4.1-5.3); Red Cell Distribution Width 12.6 % (12.1-15.1); White Blood Count 8.1 10^3/uL (4.0-10.0)
[2021-03-14 01:18] LABS: D Dimer 0.47 ug/mIFEU (0-0.59)
[2021-03-14 01:29] LABS: INR 1.03 (0.8-1.2)
[2021-03-14 01:37] LABS: C Reactive Protein 33.7 mg/L (0.0-4.9); Lactate Dehydrogenase 612 U/L (135-225)
[2021-03-14 01:38] LABS: Alanine Aminotransferase 109 U/L (0-41); Albumin Level 3.2 g/dL (3.5-5.2); Alkaline Phosphatase 45 IU/L (40-130); Anion Gap 13.6 (5-19); Aspartate Amino Transferase 66 U/L (0-40); Blood Urea Nitrogen 32 mg/dL (6-20); Calcium 8.2 mg/dL (8.5-10.5); Carbon Dioxide 28 mmol/L (22-29); Chloride 98 mmol/L (98-107); Globulin 3.2 g/dL (1.3-4.6); Glucose 117 mg/dL (65-115); Magnesium 2.2 mg/dL (1.7-2.3); Osmolality Calculated 290 mOsm/kg (285-295); Phosphorus 3.4 mg/dL (2.5-4.5); Potassium 3.6 mmol/L (3.5-5.1); Sodium 136 mmol/L (136-145); Total Bilirubin 0.4 mg/dL (0.15-1.2); Total Protein 6.4 g/dL (6.6-8.7)
[2021-03-14 01:40] LABS: Troponin 5 6HR 11.66 ng/L (0-15); Troponin 5 6HR Delta 2.66 ng/L (0-12)
[2021-03-14 01:50] LABS: NT Pro B Type Natriuretic Pept 19 pg/mL (0-125); Procalcitonin 0.07 ng/mL (0-0.5)
[2021-03-14 02:01] LABS: Creatine Phosphokinase 149 U/L (39-308)
[2021-03-14 02:02] LABS: Ferritin 1962 ng/mL (30-400)
[2021-03-14] MEDS: enoxaparin 40 mg/0.4 mL Syringe SUBCUT (03:21)
[2021-03-14] MEDS: ALPRAZolam 0.5 mg Tablet 0.25 MG PO ×2 (03:22→23:16)
[2021-03-14 04:09] LABS: ABG PCO2 43.4 mmHg (35-45); ABG PH Result 7.47 (7.35-7.45); Arterial Blood Gas Hematocrit 47.7 % (42-52); Base Excess ABG 6.6 mmol/L (-2.0-2.0); Blood Gas Allen Test Pos; Blood Gas Operator Identificat Anonymous; Blood Gas Sample Type Arterial; HCO3 ABG 31.3 mmol/L (22-26); PO2 ABG 64.6 mmHg (80.0-100.0)
[2021-03-14 04:10] LABS: Blood Gas Sample Site Radial, left; Oxygen Device BIPAP
[2021-03-14] MEDS: ipratropium-albuterol 3 mL Neb INHALATION ×4 (08:33→19:26)
[2021-03-14] MEDS: dexamethasone 10 mg/mL INJ 6 MG IVP (09:31)
[2021-03-14] MEDS: potassium chloride ER 20 mEq Tablet 40 MEQ PO (09:43)
[2021-03-14] MEDS: isosorbide mononitrate ER 60 mg Tablet PO (09:43)
[2021-03-14] MEDS: pantoprazole DR 40 mg Tablet PO (09:43)
[2021-03-14] MEDS: zinc gluconate 50 mg Tablet PO (09:43)
[2021-03-14] MEDS: atorvastatin 40 mg Tablet 80 MG PO (09:43)
[2021-03-14] MEDS: aspirin 81 mg EC Tablet PO (09:43)
[2021-03-14] MEDS: clopidogrel 75 mg Tablet PO (09:43)
[2021-03-14] MEDS: ascorbic acid 500 mg Tablet 1000 MG PO ×2 (09:43→17:27)
[2021-03-14] MEDS: metoprolol tartrate 50 mg Tablet PO ×2 (09:43→20:40)
[2021-03-14] MEDS: FUROsemide 10 mg/mL SDV 4mL 40 MG IVP (11:11)
--- NOTE | 2021-03-14 16:05 | P.PN_ITS ---
Subjective Subjective: Interval history: Patient was seen this morning, he tells me is doing much better, no fevers, chills, no nausea, vomiting Vitals/I&O/Wt Last Vital Signs Temp 97.8 F 03/14/21 11:51 Pulse 88 03/14/21 15:47 Resp 17 03/14/21 15:47 BP 124/78 03/14/21 11:51 Pulse Ox 87 L 03/14/21 15:47 03/14/21 03/14/21 03/14/21 06:59 14:59 22:59 Intake Total 280 / 1040 480 / 480 Output Total 700 / 1350 900 / 900 Balance -420 / -310 -420 / -420 Weight last 48 hrs Weight 91.127 kg Weight 92.442 kg Physical Exam Const: COMMON NORMALS: no acute distress and patient oriented x3 Neck/C-Spine: COMMON NORMALS: no JVD Resp: COMMON NORMALS: normal respiratory effort, No retractions, No use of accessory muscles and clear to auscultation bilaterally AUSCULTATION: clear to auscultation bilaterally Cardio: COMMON NORMALS: no JVD, regular rate, regular rhythm, S1 normal heart sound present and S2 normal heart sound present RATE: regular rate RHYTHM: regular rhythm HEART SOUNDS: S1 normal heart sound present and S2 normal heart sound present GI: COMMON NORMALS: Normal to inspection, nondistended, normoactive bowel sounds present, Soft to palpation and non-tender PALPATION: Yes Soft to palpation Extremity: COMMON NORMALS: no pedal edema Neuro: COMMON NORMALS: patient oriented x3 Psych: COMMON NORMALS: mental status grossly normal Data : 03/14/21 00:57 03/14/21 00:57 A&P Assessment and plan (1) COVID-19: Status: Acute (2) History of hypertension: Status: Acute (3) Respiratory failure with hypoxia: Status: Acute Qualifiers: Chronicity: acute Qualified Code(s): J96.01 - Acute respiratory failure with hypoxia Additional A&P Information Acute hypoxic respiratory failure secondary to Covid pneumonia. Monitor inflammatory markers : ESR , CRP, LDH, ferritin, D-dimer. Monitor x-ray, chest , ABG, blood cultures. Procal negative. Remdesivir 5-day course Decadron 6 mg IV daily x 10 days Baricitinib 3 of [address] angiogram of the chest: 1. Diffuse bilateral hazy groundglass infiltrates compatible with COVID 19 Pneumonia 2. Main pulmonary arteries are normal. No evidence of pulmonary embolus. 3. Reactive mediastinal and paratracheal lymph nodes. Cardiac echocardiogram 1-Normal left ventricular cavity size. Normal left ventricular systolic function. No regional wall motion abnormalities. Left ventricular ejection fraction is estimated at 60 %. Grade I/IV diastolic dysfunction (abnormal relaxation filling pattern), normal to mildly elevated filling pressures. 2-The right ventricle is normal in size and function. RVSP could not be calculated due to incomplete tricuspid regurgitation velocity profile. 3-Moderately thickened mitral valve. No mitral valve stenosis. Trace mitral valve regurgitation. 4-Moderate aortic valve calcification. No aortic valve stenosis. No aortic valve regurgitation. 5-There is no pericardial effusion. 6-Right atrial pressure is around 5 mm of mercury. 7-No significant change since the prior echocardiogram study of 03/27/2017. cardiac echocardiogram pending DuoNebs, Advair inhaler Empirically on ceftriaxone and azithromycin Ascorbic acid and Zinc Lovenox 40 subcu daily Supplemental oxygen as needed COPD not in exacerbation Duoneb q6hr Remainder as noted above. DVT ppx Lovenox 40 mg SQ daily Additional Medical Problems Coronary artery disease, continue aspirin, Plavix troponin 20 Hypertension Dyslipidemia GERD Attestations Medical Necessity Statement*: Patient requires hospitalization for COVID-19 pneumonia Coding Level of Care Code Acute Supervisor Rod Placing for [facility] Diagnoses COVID-19 U07.1 History of hypertension Z86.79 Respiratory failure with hypoxia J96.01 Chronicity: acute
[2021-03-14] MEDS: cefTRIAXone 1,000 MG in sodium chloride 0.9% (plus) 50 ML 100 MG IV (17:27)
[2021-03-14] MEDS: azithromycin 500 MG in sodium chloride 0.9% 250 ML 250 MG IV (17:30)
[2021-03-14] MEDS: remdesivir 100 MG in sodium chloride 0.9% (100 ml) 100 ML IV (18:26)
[2021-03-15] VITALS (14 sets, daily range): BP systolic 101–128; BP diastolic 62–81; PULSE 54–107; RESP 17–20; TEMP 36.6–37.7; O2SAT 89–93
[2021-03-15] MEDS: enoxaparin 40 mg/0.4 mL Syringe SUBCUT (04:19)
[2021-03-15 06:00] LABS: Basophils % 0.1 %; Eosinophils % 0.3 %; Hematocrit 44.6 % (42.0-52.0); Hemoglobin 15.2 g/dL (11.7-16.6); Lymphocytes # 1.5 10^3/uL (0.8-4.8); Lymphocytes % 15.2 %; Mean Corpuscular HGB Conc 34.1 g/dL (30.0-36.0); Mean Corpuscular Hemoglobin 30.2 pg (28.0-34.0); Mean Corpuscular Volume 88.5 fl (80-94); Monocytes # 0.5 10^3/uL (0.2-0.9); Monocytes % 4.5 %; Neutrophils # 8.04 10^3/uL (1.8-7.7); Neutrophils % 79.6 %; Nucleated Red Blood Cells % 0 %; Platelet Count 260 10^3/cmm (130-400); Red Blood Count 5.04 10^6/uL (4.1-5.3); Red Cell Distribution Width 12.8 % (12.1-15.1); White Blood Count 10.1 10^3/uL (4.0-10.0)
[2021-03-15 06:28] LABS: Alanine Aminotransferase 85 U/L (0-41); Albumin Level 3.5 g/dL (3.5-5.2); Alkaline Phosphatase 42 IU/L (40-130); Anion Gap 16.9 (5-19); Aspartate Amino Transferase 45 U/L (0-40); Blood Urea Nitrogen 33 mg/dL (6-20); C Reactive Protein 55.6 mg/L (0.0-4.9); Calcium 8.3 mg/dL (8.5-10.5); Carbon Dioxide 23 mmol/L (22-29); Chloride 100 mmol/L (98-107); Globulin 2.8 g/dL (1.3-4.6); Glucose 90 mg/dL (65-115); Magnesium 2.1 mg/dL (1.7-2.3); NT Pro B Type Natriuretic Pept 13 pg/mL (0-125); Osmolality Calculated 289 mOsm/kg (285-295); Potassium 3.9 mmol/L (3.5-5.1); Sodium 136 mmol/L (136-145); Total Bilirubin 0.6 mg/dL (0.15-1.2); Total Protein 6.3 g/dL (6.6-8.7)
[2021-03-15] MEDS: ipratropium-albuterol 3 mL Neb INHALATION ×4 (09:24→20:30)
[2021-03-15] MEDS: pantoprazole DR 40 mg Tablet PO (10:11)
[2021-03-15] MEDS: ascorbic acid 500 mg Tablet 1000 MG PO ×2 (10:11→18:15)
[2021-03-15] MEDS: isosorbide mononitrate ER 60 mg Tablet PO (10:11)
[2021-03-15] MEDS: atorvastatin 40 mg Tablet 80 MG PO (10:11)
[2021-03-15] MEDS: zinc gluconate 50 mg Tablet PO (10:12)
[2021-03-15] MEDS: metoprolol tartrate 50 mg Tablet PO ×2 (10:12→20:35)
[2021-03-15] MEDS: clopidogrel 75 mg Tablet PO (10:12)
[2021-03-15] MEDS: aspirin 81 mg EC Tablet PO (10:12)
[2021-03-15] MEDS: dexamethasone 10 mg/mL INJ 6 MG IVP (10:20)
--- NOTE | 2021-03-15 14:19 | XR_ITS ---
WS: [id number] Portable AP upright chest, 03/15/2021 Clinical Data: fever Comparison: Portable chest, 03/10/2021. Findings: The bilateral patchy pulmonary opacities have increased slightly. The heart remains enlarge d. The aortic arch and descending thoracic aorta are tortuous. No pneumothorax is seen. XR/XR chest 1V portable [id number] Impression: 1. Slight increase in bilateral patchy pulmonary opacities. 2. Cardiomegaly.
[2021-03-15 16:35] LABS: Lactate Dehydrogenase 651 U/L (135-225)
--- NOTE | 2021-03-15 17:10 | PM.PN ---
Subjective Subjective: Interval history: Patient was seen this morning, he is on 10 L, no fevers, no chills, no nausea, no vomiting, he tells me that he continues to have some feelings of weakness and fatigue, he understands that he has to slowly get back into his normal routine, which is frustrating for him, because he is very active Vitals/I&O/Wt Last Vital Signs Temp 97.8 F 03/15/21 16:00 Pulse 79 03/15/21 16:00 Resp 18 03/15/21 16:00 BP 104/69 03/15/21 16:00 Pulse Ox 90 03/15/21 16:00 03/15/21 03/15/21 03/15/21 06:59 14:59 22:59 Intake Total 240 / 1940 Output Total 300 / 2200 Balance -60 / -260 Weight last 48 hrs Weight 72.393 kg Weight 91.127 kg Physical Exam Const: COMMON NORMALS: no acute distress and patient oriented x3 Resp: COMMON NORMALS: normal respiratory effort, No retractions, No use of accessory muscles and clear to auscultation bilaterally AUSCULTATION: clear to auscultation bilaterally Cardio: COMMON NORMALS: regular rate, regular rhythm, S1 normal heart sound present and S2 normal heart sound present RATE: regular rate RHYTHM: regular rhythm HEART SOUNDS: S1 normal heart sound present and S2 normal heart sound present GI: COMMON NORMALS: Normal to inspection, nondistended, normoactive bowel sounds present, Soft to palpation and non-tender PALPATION: Yes Soft to palpation Extremity: COMMON NORMALS: no pedal edema Neuro: COMMON NORMALS: patient oriented x3 Psych: COMMON NORMALS: mental status grossly normal Data : 03/15/21 05:37 03/15/21 05:37 Micro: Microbiology 03/15/21 15:31 Blood Culture - Preliminary Blood SPECIMEN COLLECTED 03/15/21 15:20 Blood Culture - Preliminary Blood SPECIMEN COLLECTED 03/10/21 01:37 Blood Culture - Final Blood NO GROWTH AFTER 5 DAYS 03/10/21 01:37 Blood Culture - Final Blood NO GROWTH AFTER 5 DAYS A&P Assessment and plan (1) COVID-19: Status: Acute (2) History of hypertension: Status: Acute (3) Respiratory failure with hypoxia: Status: Acute Qualifiers: Chronicity: acute Qualified Code(s): J96.01 - Acute respiratory failure with hypoxia Additional A&P Information Acute hypoxic respiratory failure secondary to Covid pneumonia. Monitor inflammatory markers : ESR , CRP, LDH, ferritin, D-dimer. Monitor x-ray, chest , ABG, blood cultures. Procal negative. Remdesivir 5-day course completed Decadron 6 mg IV daily x 10 days Baricitinib 4 of [address] angiogram of the chest: 1. Diffuse bilateral hazy groundglass infiltrates compatible with COVID 19 Pneumonia 2. Main pulmonary arteries are normal. No evidence of pulmonary embolus. 3. Reactive mediastinal and paratracheal lymph nodes. Cardiac echocardiogram 1-Normal left ventricular cavity size. Normal left ventricular systolic function. No regional wall motion abnormalities. Left ventricular ejection fraction is estimated at 60 %. Grade I/IV diastolic dysfunction (abnormal relaxation filling pattern), normal to mildly elevated filling pressures. 2-The right ventricle is normal in size and function. RVSP could not be calculated due to incomplete tricuspid regurgitation velocity profile. 3-Moderately thickened mitral valve. No mitral valve stenosis. Trace mitral valve regurgitation. 4-Moderate aortic valve calcification. No aortic valve stenosis. No aortic valve regurgitation. 5-There is no pericardial effusion. 6-Right atrial pressure is around 5 mm of mercury. 7-No significant change since the prior echocardiogram study of 03/27/2017. cardiac echocardiogram pending DuoNebs, Advair inhaler Empirically on ceftriaxone and azithromycin Ascorbic acid and Zinc Lovenox 40 subcu daily Supplemental oxygen as needed -2 L, daily dose Lasix hold off for today Did have low-grade fever repeat chest x-ray, blood cultures, urine cultures, sputum studies, Aspergillus, PCP COPD not in exacerbation Duoneb q6hr Remainder as noted above. DVT ppx Lovenox 40 mg SQ daily Additional Medical Problems Coronary artery disease, continue aspirin, Plavix troponin 20 Hypertension Dyslipidemia GERD Attestations Medical Necessity Statement*: Patient requires hospitalization for acute respiratory failure secondary COVID-19 Coding Level of Care Code Acute Monument Setter for [facility] Diagnoses COVID-19 U07.1 History of hypertension Z86.79 Respiratory failure with hypoxia J96.01 Chronicity: acute
[2021-03-15] MEDS: azithromycin 500 MG in sodium chloride 0.9% 250 ML 250 MG IV (18:14)
[2021-03-15] MEDS: cefTRIAXone 1,000 MG in sodium chloride 0.9% (plus) 50 ML 100 MG IV (18:15)
[2021-03-15 18:41] LABS: Add Urine Microscopic? NO; Charge for UA Resulting for Rev
[2021-03-15 19:00] LABS: Bilirubin Urine Neg (Negative); Blood Urine Neg (Negative); Glucose Urine UA 1+ (Normal); Ketones Urine Negative (Negative); Leukocyte Esterase Urine Negative (Negative); Nitrate Urine Negative (Negative); Protein Urine Neg (Negative); Urine Appearance Clear (CLEAR); Urine Color Yellow (Yellow); Urobilinogen Urine 4 mg/dL (Negative); pH Urine 7 (5-7)
[2021-03-16] VITALS (15 sets, daily range): BP systolic 95–127; BP diastolic 55–81; PULSE 65–93; RESP 17–19; TEMP 36.6–37.8; O2SAT 85–94
[2021-03-16] MEDS: enoxaparin 40 mg/0.4 mL Syringe SUBCUT (03:44)
[2021-03-16 05:37] LABS: Basophils % 0.2 %; Eosinophils # 0.1 10^3/uL (0.0-0.8); Eosinophils % 0.9 %; Hematocrit 44.5 % (42.0-52.0); Hemoglobin 14.6 g/dL (11.7-16.6); Lymphocytes # 1.5 10^3/uL (0.8-4.8); Lymphocytes % 12.4 %; Mean Corpuscular HGB Conc 32.8 g/dL (30.0-36.0); Mean Corpuscular Hemoglobin 29.1 pg (28.0-34.0); Mean Corpuscular Volume 88.8 fl (80-94); Mean Platelet Volume 9.1 fL (7.4-10.4); Monocytes # 0.4 10^3/uL (0.2-0.9); Monocytes % 3.3 %; Neutrophils # 9.78 10^3/uL (1.8-7.7); Neutrophils % 82.9 %; Nucleated Red Blood Cells % 0 %; Platelet Count 286 10^3/cmm (130-400); Red Blood Count 5.01 10^6/uL (4.1-5.3); Red Cell Distribution Width 12.8 % (12.1-15.1); White Blood Count 11.8 10^3/uL (4.0-10.0)
[2021-03-16 06:21] LABS: NT Pro B Type Natriuretic Pept 28 pg/mL (0-125); Procalcitonin 0.11 ng/mL (0-0.5)
[2021-03-16 06:33] LABS: Alanine Aminotransferase 75 U/L (0-41); Albumin Level 3.1 g/dL (3.5-5.2); Alkaline Phosphatase 44 IU/L (40-130); Anion Gap 15.9 (5-19); Aspartate Amino Transferase 41 U/L (0-40); Blood Urea Nitrogen 28 mg/dL (6-20); C Reactive Protein 131.1 mg/L (0.0-4.9); Calcium 8.1 mg/dL (8.5-10.5); Carbon Dioxide 25 mmol/L (22-29); Chloride 99 mmol/L (98-107); Globulin 3.4 g/dL (1.3-4.6); Glucose 103 mg/dL (65-115); Magnesium 2.2 mg/dL (1.7-2.3); Osmolality Calculated 288 mOsm/kg (285-295); Phosphorus 3.2 mg/dL (2.5-4.5); Potassium 3.9 mmol/L (3.5-5.1); Sodium 136 mmol/L (136-145); Total Bilirubin 0.7 mg/dL (0.15-1.2); Total Protein 6.5 g/dL (6.6-8.7)
[2021-03-16] MEDS: ipratropium-albuterol 3 mL Neb INHALATION ×4 (07:25→20:09)
[2021-03-16] MEDS: dexamethasone 10 mg/mL INJ 6 MG IVP (09:54)
[2021-03-16] MEDS: pantoprazole DR 40 mg Tablet PO (10:10)
[2021-03-16] MEDS: zinc gluconate 50 mg Tablet PO (10:10)
[2021-03-16] MEDS: metoprolol tartrate 50 mg Tablet PO ×2 (10:10→20:07)
[2021-03-16] MEDS: aspirin 81 mg EC Tablet PO (10:11)
[2021-03-16] MEDS: clopidogrel 75 mg Tablet PO (10:11)
[2021-03-16] MEDS: atorvastatin 40 mg Tablet 80 MG PO (10:11)
[2021-03-16] MEDS: ascorbic acid 500 mg Tablet 1000 MG PO ×2 (10:11→17:56)
[2021-03-16] MEDS: isosorbide mononitrate ER 60 mg Tablet PO (10:11)
--- NOTE | 2021-03-16 10:43 | CTR_ITS ---
PROCEDURE INFORMATION: Exam: CT Chest Without Contrast; Diagnostic Exam date and time: 03/16/2021 10:43 AM Age: 55 years old Clinical indication: Shortness of breath; Patient HX: SOB covid symptoms TECHNIQUE: Imaging protocol: Diagnostic computed tomography of the chest without contrast. Radiation optimization: All CT scans at this facility use at least one of these dose optimization techniques: automated exposure control; mA and/or kV adjustment per patient size (includes targeted exams where dose is matched to clinical indication); or iterative reconstruction. COMPARISON: CTA CHEST 03/12/2021 8:07 AM RADIATION DOSE METRICS: Total DLP (mGy-cm): 849.65 FINDINGS: Lungs: There are bilateral, multifocal pulmonary ground-glass opacities compatible with COVID-19 pneumonia given the history. No change in the interval. Prior pulmonary granulomatous disease. Pleural spaces: No pleural effusion or pneumothorax. Heart: The heart is not enlarged. No pericardial effusion. There is coronary artery disease. Aorta: No thoracic aortic aneurysm. Lymph nodes: Calcified left hilar and aortopulmonary lymph nodes from prior granulomatous disease. Diaphragm: There is a small sliding hiatal hernia. Liver: There is fatty change involving the liver parenchyma. Bones/joints: No acute osseous abnormality. Soft tissues: No acute soft tissue abnormality. CT/CT chest wo con [id number] IMPRESSION: No change in COVID-19 pneumonia. Radiation Dose CTDIVOL = (mGy): DLP = 849.65 (mGy-cm)
--- NOTE | 2021-03-16 10:44 | USR_ITS ---
PROCEDURE INFORMATION: Exam: US Duplex Lower Extremity Veins, Bilateral Exam date and time: 03/16/2021 10:44 AM Age: 55 years old Clinical indication: Covid 19 TECHNIQUE: Imaging protocol: Real-time duplex ultrasound of the extremities with 2-D velasquez scale, color Doppler flow and spectral waveform analysis with image documentation. Complete exam focused on the bilateral lower extremity veins. COMPARISON: No relevant prior studies available. FINDINGS: Right deep veins: The common femoral, femoral, proximal profunda femoral and popliteal veins are patent. Normal Doppler waveforms. Normal compressibility and/or augmentation response. Right superficial veins: Saphenofemoral junction is patent. Left deep veins: The common femoral, femoral, proximal profunda femoral and popliteal veins are patent. Normal Doppler waveforms. Normal compressibility and/or augmentation response. Left superficial veins: Saphenofemoral junction is patent. Soft tissues: No acute soft tissue abnormality. US/[place] [id number] IMPRESSION: No evidence of deep vein thrombosis. Radiation Dose CTDIVOL = (mGy): DLP = (mGy-cm)
--- NOTE | 2021-03-16 10:45 | XRR_ITS ---
PROCEDURE INFORMATION: Exam: XR Chest Exam date and time: 03/16/2021 10:45 AM Age: 55 years old Clinical indication: Shortness of breath; Additional info: SOB TECHNIQUE: Imaging protocol: XR of the chest. Views: 1 view. COMPARISON: CR XR chest 1V portable [id number] 03/15/2021 2:28 PM FINDINGS: Lungs: Subtle patulous pulmonary opacities are still noted along the mid and lower lungs. Pleural spaces: Unremarkable. No pleural effusion. No pneumothorax. Heart/Mediastinum: Unremarkable. No cardiomegaly. Bones/joints: Unremarkable. XR/XR chest 1V portable [id number] IMPRESSION: Subtle patulous pulmonary opacities are still noted along the mid and lower lungs, not significantly changed. Radiation Dose CTDIVOL = (mGy): DLP = (mGy-cm)
[2021-03-16] MEDS: cefepime 2,000 MG in sodium chloride 0.9% (plus) 50 ML 100 MG IV (11:59)
[2021-03-16] MEDS: vancomycin 1,500 MG/300 ML PIGGYBACK 200 MG IV ×2 (12:00→23:52)
--- NOTE | 2021-03-16 15:04 | PM.PN ---
Subjective Subjective: Interval history: Patient was seen this morning, he had low-grade fever this morning, currently 90 L, he tells me he is feeling well, no lightheadedness, dizziness, nausea, vomiting, chest pain, palpitations, Vitals/I&O/Wt Last Vital Signs Temp 98.5 F 03/16/21 12:00 Pulse 73 03/16/21 12:00 Resp 18 03/16/21 12:00 BP 98/55 03/16/21 12:00 Pulse Ox 90 03/16/21 12:00 03/16/21 03/16/21 03/16/21 06:59 14:59 22:59 Intake Total 240 / 540 Output Total 300 / 1200 400 / 400 Balance -60 / -660 -400 / -400 Weight last 48 hrs Weight 91.214 kg Weight 72.393 kg Physical Exam Const: COMMON NORMALS: no acute distress and patient oriented x3 Resp: COMMON NORMALS: normal respiratory effort, No retractions, No use of accessory muscles and clear to auscultation bilaterally AUSCULTATION: clear to auscultation bilaterally Cardio: COMMON NORMALS: regular rate, regular rhythm, S1 normal heart sound present and S2 normal heart sound present RATE: regular rate RHYTHM: regular rhythm HEART SOUNDS: S1 normal heart sound present and S2 normal heart sound present GI: COMMON NORMALS: Normal to inspection, nondistended, normoactive bowel sounds present, Soft to palpation, non-tender and no bruits PALPATION: Yes Soft to palpation Extremity: COMMON NORMALS: no pedal edema Neuro: COMMON NORMALS: patient oriented x3 Psych: COMMON NORMALS: mental status grossly normal Data : 03/16/21 03:39 03/16/21 03:39 Micro: Microbiology 03/15/21 19:35 MRSA Culture - Final Nose 03/15/21 18:21 Gram Stain - Final Sputum - Expectorated Sputum 03/15/21 18:21 Legionella Urinary Antigen - Final Urine Kidney 03/15/21 18:21 Bacterial Antigens - Final Urine,Clean Catch 03/15/21 15:31 Blood Culture - Preliminary Blood SPECIMEN COLLECTED 03/15/21 15:20 Blood Culture - Preliminary Blood SPECIMEN COLLECTED A&P Assessment and plan (1) COVID-19: Status: Acute (2) History of hypertension: Status: Acute (3) Respiratory failure with hypoxia: Status: Acute Qualifiers: Chronicity: acute Qualified Code(s): J96.01 - Acute respiratory failure with hypoxia Additional A&P Information Acute hypoxic respiratory failure secondary to Covid pneumonia. Monitor inflammatory markers : ESR , CRP, LDH, ferritin, D-dimer. Monitor x-ray, chest , ABG, blood cultures. Procal negative. Remdesivir 5-day course completed Decadron 6 mg IV daily x 10 days Baricitinib 08/[address] angiogram of the chest: 1. Diffuse bilateral hazy groundglass infiltrates compatible with COVID 19 Pneumonia 2. Main pulmonary arteries are normal. No evidence of pulmonary embolus. 3. Reactive mediastinal and paratracheal lymph nodes. Cardiac echocardiogram 1-Normal left ventricular cavity size. Normal left ventricular systolic function. No regional wall motion abnormalities. Left ventricular ejection fraction is estimated at 60 %. Grade I/IV diastolic dysfunction (abnormal relaxation filling pattern), normal to mildly elevated filling pressures. 2-The right ventricle is normal in size and function. RVSP could not be calculated due to incomplete tricuspid regurgitation velocity profile. 3-Moderately thickened mitral valve. No mitral valve stenosis. Trace mitral valve regurgitation. 4-Moderate aortic valve calcification. No aortic valve stenosis. No aortic valve regurgitation. 5-There is no pericardial effusion. 6-Right atrial pressure is around 5 mm of mercury. 7-No significant change since the prior echocardiogram study of 03/27/2017. DuoNebs, Advair inhaler Ascorbic acid and Zinc Lovenox 40 subcu daily Supplemental oxygen as needed -2 L, daily dose Lasix hold off for today Did have low-grade fever, repeat CT of the chest, follow repeat blood cultures, urine bacterial antigens, Legionella, sputum cultures, broaden antibiotic coverage to vancomycin, cefepime, azithromycin, MRSA nares COPD not in exacerbation Duoneb q6hr Remainder as noted above. 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
[2021-03-16 16:09] LABS: Influenza A by IFA Negative (Negative); Influenza B by IFA Negative (Negative)
[2021-03-16] MEDS: azithromycin 500 MG in sodium chloride 0.9% 250 ML 250 MG IV (17:56)
[2021-03-16 19:38] LABS: NT Pro B Type Natriuretic Pept 29 pg/mL (0-125)
--- NOTE | 2021-03-16 20:16 | PC.NURSE ---
Shift report received from Aleksander IBARRA. Patient in bed/ denies pain. +cough. CPap on at this time. No needs voiced.
[2021-03-16] MEDS: ALPRAZolam 0.5 mg Tablet 0.25 MG PO (23:52)
[2021-03-17] VITALS (15 sets, daily range): BP systolic 101–130; BP diastolic 65–77; PULSE 60–103; RESP 17–21; TEMP 36.2–38.4; O2SAT 84–97
[2021-03-17] MEDS: cefepime 2,000 MG in sodium chloride 0.9% (plus) 50 ML 100 MG IV ×3 (01:22→22:07)
[2021-03-17] MEDS: enoxaparin 40 mg/0.4 mL Syringe SUBCUT (03:39)
[2021-03-17 05:05] LABS: Basophils % 0.2 %; Eosinophils # 0.1 10^3/uL (0.0-0.8); Eosinophils % 0.8 %; Hematocrit 42.7 % (42.0-52.0); Hemoglobin 14.3 g/dL (11.7-16.6); Lymphocytes # 1.1 10^3/uL (0.8-4.8); Lymphocytes % 10.7 %; Mean Corpuscular HGB Conc 33.5 g/dL (30.0-36.0); Mean Corpuscular Hemoglobin 29.7 pg (28.0-34.0); Mean Corpuscular Volume 88.8 fl (80-94); Mean Platelet Volume 9.2 fL (7.4-10.4); Monocytes # 0.3 10^3/uL (0.2-0.9); Monocytes % 2.9 %; Neutrophils # 8.98 10^3/uL (1.8-7.7); Neutrophils % 84.8 %; Nucleated Red Blood Cells % 0 %; Platelet Count 306 10^3/cmm (130-400); Red Blood Count 4.81 10^6/uL (4.1-5.3); Red Cell Distribution Width 12.7 % (12.1-15.1); White Blood Count 10.6 10^3/uL (4.0-10.0)
[2021-03-17 05:29] LABS: NT Pro B Type Natriuretic Pept 18 pg/mL (0-125); Procalcitonin 0.09 ng/mL (0-0.5)
[2021-03-17 05:41] LABS: Alanine Aminotransferase 95 U/L (0-41); Albumin Level 3.1 g/dL (3.5-5.2); Alkaline Phosphatase 44 IU/L (40-130); Aspartate Amino Transferase 56 U/L (0-40); Blood Urea Nitrogen 29 mg/dL (6-20); C Reactive Protein 122.3 mg/L (0.0-4.9); Calcium 7.8 mg/dL (8.5-10.5); Carbon Dioxide 19 mmol/L (22-29); Chloride 104 mmol/L (98-107); Glomerular Filtration Rate 99.6 mL/min (90-130); Glucose 112 mg/dL (65-115); Osmolality Calculated 293 mOsm/kg (285-295); Phosphorus 2.8 mg/dL (2.5-4.5); Sodium 138 mmol/L (136-145); Total Bilirubin 0.7 mg/dL (0.15-1.2); Total Protein 6.1 g/dL (6.6-8.7)
[2021-03-17] MEDS: ipratropium-albuterol 3 mL Neb INHALATION ×4 (07:30→20:14)
[2021-03-17] MEDS: ascorbic acid 500 mg Tablet 1000 MG PO ×2 (08:15→17:37)
[2021-03-17] MEDS: pantoprazole DR 40 mg Tablet PO (08:16)
[2021-03-17] MEDS: atorvastatin 40 mg Tablet 80 MG PO (08:16)
[2021-03-17] MEDS: aspirin 81 mg EC Tablet PO (08:16)
[2021-03-17] MEDS: clopidogrel 75 mg Tablet PO (08:16)
[2021-03-17] MEDS: isosorbide mononitrate ER 60 mg Tablet PO (08:16)
[2021-03-17] MEDS: zinc gluconate 50 mg Tablet PO (08:16)
[2021-03-17] MEDS: metoprolol tartrate 50 mg Tablet PO ×2 (08:16→22:05)
[2021-03-17] MEDS: FUROsemide 10 mg/mL SDV 4mL 40 MG IVP (10:31)
[2021-03-17 11:02] LABS: Vancomycin Trough 8.2 ug/mL (10-15)
--- NOTE | 2021-03-17 12:42 | PM.PN ---
Subjective Subjective: Interval history: Patient was seen this morning, currently on 8 L, no fevers overnight, he tells me that he feels that the CPAP helps him a lot during the night Vitals/I&O/Wt Last Vital Signs Temp 98.1 F 03/17/21 12:00 Pulse 74 03/17/21 12:00 Resp 18 03/17/21 12:00 BP 101/67 03/17/21 12:00 Pulse Ox 87 L 03/17/21 12:00 03/16/21 03/17/21 03/17/21 22:59 06:59 14:59 Intake Total 350 / 350 770 / 770 Output Total 650 / 1050 1300 / 1300 Balance 350 / -50 -650 / -700 -530 / -530 Weight last 48 hrs Weight 90.265 kg Weight 91.214 kg Physical Exam Const: COMMON NORMALS: no acute distress and patient oriented x3 Resp: COMMON NORMALS: normal respiratory effort, No retractions, No use of accessory muscles and clear to auscultation bilaterally AUSCULTATION: clear to auscultation bilaterally Cardio: COMMON NORMALS: regular rate, regular rhythm, S1 normal heart sound present and S2 normal heart sound present RATE: regular rate RHYTHM: regular rhythm HEART SOUNDS: S1 normal heart sound present and S2 normal heart sound present GI: COMMON NORMALS: Normal to inspection, nondistended, normoactive bowel sounds present, Soft to palpation and non-tender PALPATION: Yes Soft to palpation Extremity: COMMON NORMALS: no pedal edema Neuro: COMMON NORMALS: patient oriented x3 Psych: COMMON NORMALS: mental status grossly normal Data : 03/17/21 04:13 03/17/21 04:13 Micro: Microbiology 03/15/21 15:31 Blood Culture - Preliminary Blood NEGATIVE TO DATE 03/15/21 15:20 Blood Culture - Preliminary Blood NEGATIVE TO DATE 03/15/21 19:35 MRSA Culture - Final Nose 03/15/21 18:21 Gram Stain - Final Sputum - Expectorated Sputum 03/15/21 18:21 Legionella Urinary Antigen - Final Urine Kidney 03/15/21 18:21 Bacterial Antigens - Final Urine,Clean Catch A&P Assessment and plan (1) COVID-19: Status: Acute (2) History of hypertension: Status: Acute (3) Respiratory failure with hypoxia: Status: Acute Qualifiers: Chronicity: acute Qualified Code(s): J96.01 - Acute respiratory failure with hypoxia Additional A&P Information Acute hypoxic respiratory failure secondary to Covid pneumonia. Monitor inflammatory markers : ESR , CRP, LDH, ferritin, D-dimer. Monitor x-ray, chest , ABG, blood cultures. Procal negative. Remdesivir 5-day course completed Decadron 6 mg IV daily x 10 days Baricitinib 08/[address] angiogram of the chest: 1. Diffuse bilateral hazy groundglass infiltrates compatible with COVID 19 Pneumonia 2. Main pulmonary arteries are normal. No evidence of pulmonary embolus. 3. Reactive mediastinal and paratracheal lymph nodes. Cardiac echocardiogram 1-Normal left ventricular cavity size. Normal left ventricular systolic function. No regional wall motion abnormalities. Left ventricular ejection fraction is estimated at 60 %. Grade I/IV diastolic dysfunction (abnormal relaxation filling pattern), normal to mildly elevated filling pressures. 2-The right ventricle is normal in size and function. RVSP could not be calculated due to incomplete tricuspid regurgitation velocity profile. 3-Moderately thickened mitral valve. No mitral valve stenosis. Trace mitral valve regurgitation. 4-Moderate aortic valve calcification. No aortic valve stenosis. No aortic valve regurgitation. 5-There is no pericardial effusion. 6-Right atrial pressure is around 5 mm of mercury. 7-No significant change since the prior echocardiogram study of 03/27/2017. DuoNebs, Advair inhaler Ascorbic acid and Zinc Lovenox 40 subcu daily Supplemental oxygen as needed -4.6 L, daily dose Lasix hold off for today Did have low-grade fever, repeat CT of the chest no focal consolidation, follow repeat blood cultures so far negative, urine bacterial antigens negative, Legionella negative, sputum cultures pending, MRSA nares negative, stop vancomycin, cefepime, azithromycin COPD not in exacerbation Duoneb q6hr Remainder as noted above. 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
[2021-03-17] MEDS: azithromycin 500 MG in sodium chloride 0.9% 250 ML 250 MG IV (17:31)
[2021-03-17] MEDS: ALPRAZolam 0.5 mg Tablet 0.25 MG PO (22:05)
[2021-03-17] MEDS: acetaminophen 325 mg Tablet 650 MG PO (22:13)
[2021-03-18] VITALS (15 sets, daily range): BP systolic 100–126; BP diastolic 61–81; PULSE 72–111; RESP 16–20; TEMP 36.6–37.6; O2SAT 78–92
[2021-03-18] MEDS: enoxaparin 40 mg/0.4 mL Syringe SUBCUT (04:12)
[2021-03-18 06:02] LABS: Basophils % 0.1 %; Eosinophils # 0.4 10^3/uL (0.0-0.8); Eosinophils % 3.4 %; Hematocrit 44.2 % (42.0-52.0); Hemoglobin 14.7 g/dL (11.7-16.6); Lymphocytes # 0.9 10^3/uL (0.8-4.8); Lymphocytes % 8.5 %; Mean Corpuscular HGB Conc 33.3 g/dL (30.0-36.0); Mean Corpuscular Hemoglobin 29.2 pg (28.0-34.0); Mean Corpuscular Volume 87.9 fl (80-94); Monocytes # 0.2 10^3/uL (0.2-0.9); Monocytes % 2.1 %; Neutrophils # 9.19 10^3/uL (1.8-7.7); Neutrophils % 85.5 %; Nucleated Red Blood Cells % 0 %; Platelet Count 321 10^3/cmm (130-400); Red Blood Count 5.03 10^6/uL (4.1-5.3); Red Cell Distribution Width 12.9 % (12.1-15.1); White Blood Count 10.7 10^3/uL (4.0-10.0)
[2021-03-18 06:31] LABS: C Reactive Protein 128.3 mg/L (0.0-4.9); Phosphorus 2.5 mg/dL (2.5-4.5)
[2021-03-18 06:40] LABS: NT Pro B Type Natriuretic Pept 23 pg/mL (0-125); Procalcitonin 0.12 ng/mL (0-0.5)
[2021-03-18 06:50] LABS: Anion Gap 18.1 (5-19); Blood Urea Nitrogen 27 mg/dL (6-20); Carbon Dioxide 19 mmol/L (22-29); Chloride 103 mmol/L (98-107); Glomerular Filtration Rate 99.6 mL/min (90-130); Glucose 93 mg/dL (65-115); Osmolality Calculated 287 mOsm/kg (285-295); Potassium 4.1 mmol/L (3.5-5.1); Sodium 136 mmol/L (136-145)
[2021-03-18] MEDS: ipratropium-albuterol 3 mL Neb INHALATION ×3 (07:38→20:32)
--- NOTE | 2021-03-18 08:48 | XR_ITS ---
WS: [id number] Exam: XR chest 1V portable [id number] Date/Time of Exam: 03/18/2021 9:22 AM Reason For Exam: PNA Comparison 03/16/2021. Increasing patchy groundglass infiltrates noted throughout both lungs. Heart size is normal. The medi astinum and osseous thorax are unremarkable. The lungs are fully inflated. No pleural effusions. Bony structures are intact. XR/XR chest 1V portable [id number] IMPRESSION: 1. Increasing bilateral groundglass infiltrates in both lungs. The pattern is n onspecific but Covid pneumonia could have this appearance.
[2021-03-18] MEDS: aspirin 81 mg EC Tablet PO (08:58)
[2021-03-18] MEDS: zinc gluconate 50 mg Tablet PO (08:58)
[2021-03-18] MEDS: ascorbic acid 500 mg Tablet 1000 MG PO ×2 (08:58→17:29)
[2021-03-18] MEDS: atorvastatin 40 mg Tablet 80 MG PO (08:58)
[2021-03-18] MEDS: metoprolol tartrate 50 mg Tablet PO ×2 (08:58→21:02)
[2021-03-18] MEDS: pantoprazole DR 40 mg Tablet PO (08:59)
[2021-03-18] MEDS: isosorbide mononitrate ER 60 mg Tablet PO (08:59)
[2021-03-18] MEDS: clopidogrel 75 mg Tablet PO (08:59)
--- NOTE | 2021-03-18 12:05 | PC.NURSE ---
nurse notified of oxygen at 85% on 10L high flow cannula
[2021-03-18] MEDS: cefepime 2,000 MG in sodium chloride 0.9% (plus) 50 ML 100 MG IV ×2 (12:47→22:23)
--- NOTE | 2021-03-18 16:13 | PC.NURSE ---
Nurse and RT notified of o2 at 78%
[2021-03-18] MEDS: azithromycin 500 MG in sodium chloride 0.9% 250 ML 250 MG IV (17:26)
[2021-03-18] MEDS: fluticasone nasal spray 16gm Btl 1 SPRAY NASAL (17:30)
--- NOTE | 2021-03-18 20:14 | PM.PN ---
Subjective Subjective: Interval history: Patient was seen and examined this morning has significant SOB with minimal exertion.His supplemental oxygen requiremnt has also gone up today, currently he is requiring 15Ls oxygen. Xray chest done in the morning has shown worsening of infiltrates. His other vitals and labs have been reviewed. Medications: Reviewed: Yes Vitals/I&O/Wt Last Vital Signs Temp 98.1 F 03/18/21 16:00 Pulse 93 03/18/21 17:10 Resp 17 03/18/21 17:10 BP 111/67 03/18/21 16:00 Pulse Ox 85 L 03/18/21 17:10 03/18/21 03/18/21 03/18/21 06:59 14:59 22:59 Intake Total 50 / 1670 300 / 300 Output Total 600 / 2352 600 / 600 Balance -550 / -682 -300 / -300 Weight last 48 hrs Weight 90.718 kg Weight 90.265 kg Physical Exam Const: COMMON NORMALS: patient oriented x3 HENMT: COMMON NORMALS: atraumatic HEAD & SCALP: atraumatic Resp: EFFORT & INSPECTION: Yes tachypneic, Yes respiratory distress and Yes Actively coughing OTHER: Diminished air entry bilaterally Cardio: COMMON NORMALS: regular rate, regular rhythm, S1 normal heart sound present, S2 normal heart sound present, No gallops present (Cardio), No murmurs present (Cardio), No rub (Cardio) and Peripheral pulses 2+ throughout RATE: regular rate RHYTHM: regular rhythm HEART SOUNDS: S1 normal heart sound present and S2 normal heart sound present PERIPHERAL PULSES: Peripheral pulses 2+ throughout GI: COMMON NORMALS: Normal to inspection, nondistended, normoactive bowel sounds present, Soft to palpation, non-tender, No hepatosplenomegaly present and no masses AUSCULTATION: Yes normoactive bowel sounds PALPATION: Yes Soft to palpation and Yes No hepatosplenomegaly present RECTAL EXAM: Yes deferred Extremity: COMMON NORMALS: no clubbing, cyanosis or edema and no pedal edema Neuro: COMMON NORMALS: patient oriented x3 Data : 03/18/21 05:48 03/18/21 05:48 Micro: Microbiology 03/15/21 18:21 Gram Stain - Final Sputum - Expectorated Sputum Sputum Culture - Final A&P Assessment and plan (1) COVID-19: Status: Acute (2) History of hypertension: Status: Acute (3) Respiratory failure with hypoxia: Status: Acute Qualifiers: Chronicity: acute Qualified Code(s): J96.01 - Acute respiratory failure with hypoxia Additional A&P Information Acute hypoxic respiratory failure secondary to Covid pneumonia. Monitor inflammatory markers : ESR , CRP, LDH, ferritin, D-dimer. Monitor x-ray, chest , ABG, blood cultures. Procal negative. Remdesivir 5-day course completed Decadron 6 mg IV daily x 10 days Baricitinib 08/[address] angiogram of the chest: 1. Diffuse bilateral hazy groundglass infiltrates compatible with COVID 19 Pneumonia 2. Main pulmonary arteries are normal. No evidence of pulmonary embolus. 3. Reactive mediastinal and paratracheal lymph nodes. Cardiac echocardiogram 1-Normal left ventricular cavity size. Normal left ventricular systolic function. No regional wall motion abnormalities. Left ventricular ejection fraction is estimated at 60 %. Grade I/IV diastolic dysfunction (abnormal relaxation filling pattern), normal to mildly elevated filling pressures. 2-The right ventricle is normal in size and function. RVSP could not be calculated due to incomplete tricuspid regurgitation velocity profile. 3-Moderately thickened mitral valve. No mitral valve stenosis. Trace mitral valve regurgitation. 4-Moderate aortic valve calcification. No aortic valve stenosis. No aortic valve regurgitation. 5-There is no pericardial effusion. 6-Right atrial pressure is around 5 mm of mercury. 7-No significant change since the prior echocardiogram study of 03/27/2017. DuoNebs, Advair inhaler Ascorbic acid and Zinc Lovenox 40 subcu daily Supplemental oxygen as needed -4.6 L, daily dose Lasix hold off for today Did have low-grade fever, repeat CT of the chest no focal consolidation, follow repeat blood cultures so far negative, urine bacterial antigens negative, Legionella negative, sputum cultures pending, MRSA nares negative, stop vancomycin, cefepime, azithromycin COPD not in exacerbation Duoneb q6hr Remainder as noted above. DVT ppx Lovenox 40 mg SQ daily Additional Medical Problems Coronary artery disease, continue aspirin, Plavix troponin 20 Hypertension Dyslipidemia GERD Attestations Medical Necessity Statement*: Patient needs to be in hospital for the management of PNA. Coding Level of Care Code Acute Information Systems Manager for [facility] Fwd Exam Detailed Diagnoses COVID-19 U07.1 History of hypertension Z86.79 Respiratory failure with hypoxia J96.01 Chronicity: acute
[2021-03-18] MEDS: calcium carbonate 500 mg Chew Tablet PO (21:25)
[2021-03-19] VITALS (17 sets, daily range): BP systolic 101–117; BP diastolic 67–80; PULSE 3–108; RESP 16–22; TEMP 36.2–37.7; O2SAT 82–92
[2021-03-19] MEDS: ALPRAZolam 0.5 mg Tablet 0.25 MG PO (00:26)
[2021-03-19] MEDS: enoxaparin 40 mg/0.4 mL Syringe SUBCUT (04:51)
[2021-03-19 06:11] LABS: Basophils % 0.2 %; Eosinophils # 0.3 10^3/uL (0.0-0.8); Eosinophils % 3.5 %; Hematocrit 44.2 % (42.0-52.0); Hemoglobin 14.6 g/dL (11.7-16.6); Lymphocytes % 10.4 %; Mean Corpuscular Hemoglobin 29.3 pg (28.0-34.0); Mean Corpuscular Volume 88.6 fl (80-94); Mean Platelet Volume 9.2 fL (7.4-10.4); Monocytes # 0.2 10^3/uL (0.2-0.9); Monocytes % 2.4 %; Neutrophils % 83.2 %; Nucleated Red Blood Cells % 0 %; Platelet Count 292 10^3/cmm (130-400); Red Blood Count 4.99 10^6/uL (4.1-5.3); Red Cell Distribution Width 13.1 % (12.1-15.1); White Blood Count 9.7 10^3/uL (4.0-10.0)
[2021-03-19 06:33] LABS: C Reactive Protein 275.8 mg/L (0.0-4.9); Phosphorus 2.4 mg/dL (2.5-4.5)
[2021-03-19 06:35] LABS: NT Pro B Type Natriuretic Pept 50 pg/mL (0-125); Procalcitonin 0.28 ng/mL (0-0.5)
[2021-03-19 06:46] LABS: Anion Gap 20.4 (5-19); Blood Urea Nitrogen 27 mg/dL (6-20); Calcium 8.4 mg/dL (8.5-10.5); Carbon Dioxide 19 mmol/L (22-29); Chloride 103 mmol/L (98-107); Glucose 80 mg/dL (65-115); Osmolality Calculated 290 mOsm/kg (285-295); Potassium 4.4 mmol/L (3.5-5.1); Sodium 138 mmol/L (136-145)
[2021-03-19] MEDS: zinc gluconate 50 mg Tablet PO (07:45)
[2021-03-19] MEDS: atorvastatin 40 mg Tablet 80 MG PO (07:45)
[2021-03-19] MEDS: clopidogrel 75 mg Tablet PO (07:46)
[2021-03-19] MEDS: aspirin 81 mg EC Tablet PO (07:46)
[2021-03-19] MEDS: ascorbic acid 500 mg Tablet 1000 MG PO ×2 (07:46→15:52)
[2021-03-19] MEDS: isosorbide mononitrate ER 60 mg Tablet PO (07:46)
[2021-03-19] MEDS: pantoprazole DR 40 mg Tablet PO (07:46)
[2021-03-19] MEDS: metoprolol tartrate 50 mg Tablet PO ×2 (07:46→20:42)
[2021-03-19] MEDS: ipratropium-albuterol 3 mL Neb INHALATION ×4 (08:58→20:38)
[2021-03-19] MEDS: cefepime 2,000 MG in sodium chloride 0.9% (plus) 50 ML 100 MG IV ×2 (12:00→23:04)
[2021-03-19] MEDS: fluticasone nasal spray 16gm Btl 1 SPRAY NASAL ×2 (12:47→16:40)
--- NOTE | 2021-03-19 13:12 | P.PN_ITS ---
Subjective Subjective: Interval history: Patient was seen and examined this morning has significant SOB with minimal exertion.His supplemental oxygen requiremnt has also gone up today, currently he is requiring 15Ls oxygen. Xray chest done in the morning has shown worsening of infiltrates. His other vitals and labs have been reviewed. Medications: Reviewed: Yes Vitals/I&O/Wt Last Vital Signs Temp 98.1 F 03/19/21 12:00 Pulse 105 H 03/19/21 12:00 Resp 18 03/19/21 12:00 BP 105/70 03/19/21 12:00 Pulse Ox 88 L 03/19/21 12:00 03/18/21 03/19/21 03/19/21 22:59 06:59 14:59 Intake Total 1020 / 1020 770 / 1790 Output Total 600 / 600 Balance 420 / 420 770 / 1190 Weight last 48 hrs Weight 90.718 kg Weight 90.718 kg Physical Exam Const: COMMON NORMALS: patient oriented x3 HENMT: COMMON NORMALS: atraumatic HEAD & SCALP: atraumatic Resp: EFFORT & INSPECTION: Yes respiratory distress and Yes Actively coughing OTHER: Diminished air entry bilaterally, b/l fine crackles present in both lungs sharma Cardio: COMMON NORMALS: regular rate, regular rhythm, S1 normal heart sound present, S2 normal heart sound present, No gallops present (Cardio), No murmurs present (Cardio), No rub (Cardio) and Peripheral pulses 2+ throughout RATE: regular rate RHYTHM: regular rhythm HEART SOUNDS: S1 normal heart sound present and S2 normal heart sound present PERIPHERAL PULSES: Peripheral pulses 2+ throughout GI: COMMON NORMALS: Normal to inspection, nondistended, normoactive bowel sounds present, Soft to palpation, non-tender, No hepatosplenomegaly present and no masses AUSCULTATION: Yes normoactive bowel sounds PALPATION: Yes Soft to palpation and Yes No hepatosplenomegaly present RECTAL EXAM: Yes deferred Extremity: COMMON NORMALS: no clubbing, cyanosis or edema and no pedal edema Neuro: COMMON NORMALS: patient oriented x3 Data : 03/19/21 05:23 03/19/21 05:23 Micro: Microbiology 03/15/21 18:21 Gram Stain - Final Sputum - Expectorated Sputum Sputum Culture - Final A&P Assessment and plan (1) COVID-19: Status: Acute (2) History of hypertension: Status: Acute (3) Respiratory failure with hypoxia: Status: Acute Qualifiers: Chronicity: acute Qualified Code(s): J96.01 - Acute respiratory failure with hypoxia Additional A&P Information Acute hypoxic respiratory failure secondary to Covid pneumonia. Procal negative. Blood cultures negative so far MRSA PCR negative Urine Legionella antigen negative Bacterial antigen panel negative CT angiogram of the chest: 1. Diffuse bilateral hazy groundglass infiltrates compatible with COVID 19 Pneumonia 2. Main pulmonary arteries are normal. No evidence of pulmonary embolus. 3. Reactive mediastinal and paratracheal lymph nodes. Repeat CT chest without contrast:bilateral, multifocal pulmonary ground-glass opacities.No pneumothorax no pneumomediastinum. Cardiac echocardiogram 1-Normal left ventricular cavity size. Normal left ventricular systolic function. No regional wall motion abnormalities. Left ventricular ejection fraction is estimated at 60 %. Grade I/IV diastolic dysfunction (abnormal relaxation filling pattern), normal to mildly elevated filling pressures. 2-The right ventricle is normal in size and function. RVSP could not be calculated due to incomplete tricuspid regurgitation velocity profile. 3-Moderately thickened mitral valve. No mitral valve stenosis. Trace mitral valve regurgitation. 4-Moderate aortic valve calcification. No aortic valve stenosis. No aortic valve regurgitation. 5-There is no pericardial effusion. 6-Right atrial pressure is around 5 mm of mercury. 7-No significant change since the prior echocardiogram study of 03/27/2017. Remdesivir 5-day course completed Decadron 6 mg IV daily x 10 days Baricitinib 12/21 S/P 1 dose Actemra on 03/19 DuoNebs, Advair inhaler Ascorbic acid and Zinc Lovenox 40 subcu daily Supplemental oxygen as needed Lasix as needed Monitor x-ray, chest , ABG, Monitor inflammatory markers : ESR , CRP, LDH, ferritin, D-dimer. Currently on cefepime, azithromycin and vancomycin has been discontinued COPD not in exacerbation Duoneb q6hr Remainder as noted above. DVT ppx Lovenox 40 mg SQ daily Additional Medical Problems Coronary artery disease, continue aspirin, Plavix troponin 20 Hypertension Dyslipidemia GERD Attestations Medical Necessity Statement*: Patient needs to be in hospital for management of severe Covid pneumonia Coding Level of Care Code Acute Insurance Salesperson for [facility] Fwd Exam Detailed Diagnoses COVID-19 U07.1 History of hypertension Z86.79 Respiratory failure with hypoxia J96.01 Chronicity: acute
[2021-03-19] MEDS: dexamethasone 10 mg/mL INJ 6 MG IVP (15:38)
[2021-03-19] MEDS: azithromycin 500 MG in sodium chloride 0.9% 250 ML 250 MG IV (15:41)
--- NOTE | 2021-03-19 17:23 | PM.CONSULT ---
Providers/Reason For Consult Consulting Physician/Specialty*: Pulmonary and critical care medicine Reason for Consult*: Acute hypoxic respiratory failure due to severe COVID-19 Attending Physician: Wilian Lock MD Primary Care Provider: Soraya Villa APN History of Present Illness History of Present Illness Grey Naylor is a 55 year old male who presented to the hospital on March 10 with diagnosis of COVID-19 approximately 10 days ago and worsening hypoxia. The initial CT angiogram of the chest on March 12 revealed bilateral diffuse groundglass opacity without any evidence of pulmonary embolism. The patient also has a small hiatal hernia. His DVT study was negative. The patient was treated with dexamethasone, broad-spectrum antibiotic with cefepime and azithromycin. He was also on baricitinib. The patient had been doing fairly well however recently his oxygen requirement has gone up. Currently the patient is on 12 L oxygen. The patient has a previous history of hypertension, hyperlipidemia, coronary artery disease. Apparently, the patient also carries a diagnosis of COPD. He is a former smoker. The patient also has obstructive sleep apnea with nocturnal desaturation. His chest x-ray obtained yesterday revealed increasing bilateral lung infiltrate. Most strikingly his inflammatory markers have increased significantly. The patient complains of cough, minimal whitish sputum production, no wheezing. The patient is short of breath with exertion. Review of Systems Narrative: Review of system was limited. The patient complained of mild cough, sputum production, exertional shortness of breath. He also has nasal congestion. No abdominal pain, nausea vomiting diarrhea. Neurological intact. Meds/Allergies Home Medications and Allergies Home Medications Medication Instructions Recorded Confirmed Last Taken Type coenzyme Q10 10 mg capsule 10 mg PO DAILY cap 11/15/19 03/10/21 Unknown History omega-3 fatty acids 1,000 mg 3,000 mg PO DAILY cap 11/15/19 03/10/21 Unknown History capsule alprazolam 0.25 mg tablet 0.25 mg PO DAILY PRN 02/07/20 03/10/21 Unknown History aspirin 81 mg tablet,delayed 81 mg PO DAILY #90 tab 02/07/20 03/10/21 Unknown Rx release pantoprazole 40 mg tablet,delayed 40 mg PO DAILY #90 tab 06/11/20 03/10/21 Unknown Rx release nitroglycerin 0.4 mg sublingual 0.4 mg SUBLINGUAL Q5M PRN #25 tab 09/17/20 03/10/21 Unknown Rx tablet cinnamon bark 500 mg capsule 500 mg PO DAILY 10/30/20 03/10/21 Unknown History clopidogrel 75 mg tablet 75 mg PO DAILY #90 tab 11/01/20 03/10/21 Unknown Rx isosorbide mononitrate 60 mg 60 mg PO DAILY #90 tab 11/01/20 03/10/21 Unknown Rx tablet,extended release 24 hr lisinopril 40 mg tablet 40 mg PO DAILY #90 tab 11/01/20 03/10/21 Unknown Rx chlorthalidone 25 mg tablet 25 mg PO DAILY #90 tab 11/22/20 03/10/21 Unknown Rx rosuvastatin 20 mg tablet 20 mg PO DAILY #90 tab 12/20/20 03/10/21 Unknown Rx metoprolol tartrate 50 mg tablet 50 mg PO BID #60 tab 01/25/21 03/10/21 Unknown Rx Allergies Allergy/AdvReac Type Severity Reaction Status Date / Time No Known Allergies Allergy Verified 10/30/20 13:31 Current Medications Current Medications Generic Name Dose Route Start Last Admin Trade Name Freq PRN Reason Stop Dose Admin Acetaminophen 650 mg 03/10/21 03:39 03/17/21 22:13 Acetaminophen 325 Mg Tablet PO 650 mg Q6H PRN Administration Mild/Mod Pain Or Temp >/= 101 Albuterol/Ipratropium 3 ml 03/10/21 08:00 03/19/21 16:21 Ipratropium-Albuterol 3 Ml Neb INHALATION 3 ml QID.RESPIRATORY MICHAEL Administration Aspirin 81 mg 03/10/21 09:00 03/19/21 07:46 Aspirin 81 Mg Ec Tablet PO 81 mg DAILY MICHAEL Administration Atorvastatin Calcium 80 mg 03/10/21 09:00 03/19/21 07:45 Atorvastatin 40 Mg Tablet PO 80 mg DAILY MICHAEL Administration Clopidogrel Bisulfate 75 mg 03/10/21 09:00 03/19/21 07:46 Clopidogrel 75 Mg Tablet PO 75 mg DAILY MICHAEL Administration Dexamethasone 6 mg 03/19/21 13:30 03/19/21 15:38 Dexamethasone 10 Mg/Ml Inj IVP 6 mg Q24H MICHAEL Administration Enoxaparin Sodium 40 mg 03/10/21 03:45 03/19/21 04:51 Enoxaparin 40 Mg/0.4 Ml Syringe SUBCUT 40 mg Q24H MICHAEL Administration Fluticasone Propionate 1 spray 03/18/21 18:00 03/19/21 16:40 Fluticasone Nasal [place] 16gm Btl NASAL 1 dose BID MICHAEL Administration Cefepime HCl 2,000 mg/ Sodium 50 mls @ 100 mls/hr 03/16/21 11:00 03/19/21 12:00 Chloride IV 100 mls/hr Q12H MICHAEL Administration Protocol Isosorbide Mononitrate 60 mg 03/10/21 09:00 03/19/21 07:46 Isosorbide Mononitrate Er 60 Mg Tablet PO 60 mg DAILY MICHAEL Administration Metoprolol Tartrate 50 mg 03/10/21 09:00 03/19/21 07:46 Metoprolol Tartrate 50 Mg Tablet PO 50 mg BID@0900,2100 MICHAEL Administration Pantoprazole Sodium 40 mg 03/10/21 09:00 03/19/21 07:[address] 40 Mg Tablet PO 40 mg DAILY MICHAEL Administration Fluticasone/Salmeterol 2 puff 03/10/21 20:00 03/19/21 08:59 Fluticasone-Salmeterol 250-50 Diskus INHALATION 2 puff BID.RESPIRATORY MICHAEL Administration PFSH Acute PFSH: Medical History History of hypertension Hx of arteriosclerotic cardiovascular disease Hx of gastroesophageal reflux (GERD) Hx of myocardial infarction Surgical History (Updated 10/30/20 @ 14:24 by LISA Nolen) History of carpal tunnel release of both wrists Hx of coronary angioplasty Family History Mother CHF (congestive heart failure) COPD (chronic obstructive pulmonary disease) Social History Smoking and tobacco status: former smoker Vitals/I&O/Wt Last Vital Signs Temp 97.6 F 03/19/21 15:36 Pulse 108 H 03/19/21 16:41 Resp 22 H 03/19/21 16:21 BP 108/72 03/19/21 15:36 Pulse Ox 88 L 03/19/21 16:21 03/19/21 03/19/21 03/19/21 06:59 14:59 22:59 Intake Total 770 / 1790 580 / 580 Balance 770 / 1190 580 / 580 Weight last 48 hrs Weight 200 lb Weight 200 lb Physical Exam Narrative: EXAM NARRATIVE: General: Patient is awake alert and oriented, tachypneic Neck: No JVD Respiratory: Auscultation: Bilateral reduced breath sound, no crackles wheezing or rhonchi Cardiovascular: Regular rate and rhythm, S1-S2 present, no murmur, no peripheral edema. Abdomen: Soft, nontender, nondistended, positive bowel sound Musculoskeletal: No obvious joint deformity Skin: No rash Neuro: Mental status is normal, no gross cranial nerve deficit, normal motor function Data Other Data: Attestation for Other Data: I personally reviewed and interpreted the following: Other data: I have reviewed the patient's laboratory, microbiologic and radiologic data. Please see the HPI for detail. The patient has mild anion gap metabolic acidosis. Chest x-ray showed worsening bilateral infiltrate. Inflammatory markers are significantly elevated. All microbiologic data has been negative so far. A&P Assessment and plan (1) Respiratory failure with hypoxia: The patient has severe COVID-19. CT scan is consistent with bilateral groundglass opacities which is commonly seen in COVID-19. The patient does have history of coronary artery disease but no evidence of heart failure. The patient had been broadly covered with cefepime and azithromycin for the last 10 days. Multiple procalcitonin level had been negative. The striking feature in this patient's illness is progressively worsening inflammatory markers. I believe the patient will benefit from interleukin-6 inhibitor. For the time being, we will continue with the dexamethasone. I will treat him with one dose of Tocilizumab. I am going to discontinue the azithromycin as the patient has received this for approximately 10 days. For now we will continue with the cefepime to complete a total 10 to 14 days therapy. I am going to obtain a nasal MRSA PCR. If positive, will likely start on linezolid as well. The patient is going to be on high flow nasal cannula and at nighttime the patient should be on CPAP. I have discussed this plan with the patient and his son. Status: Acute Qualifiers: Chronicity: acute Qualified Code(s): J96.01 - Acute respiratory failure with hypoxia (2) COVID-19: Please see above. Status: Acute (3) History of coronary artery disease: No evidence of active coronary artery disease at this point. Lasix intermittently to keep the input and output even. Status: Acute (4) Sleep apnea: CPAP at nighttime. Status: Acute Coding Level of Care Code Acute Wall Mirror Department Supervisor for Deuce Roman Diagnoses Respiratory failure with hypoxia J96.01 Chronicity: acute COVID-19 U07.1 History of coronary artery disease Z86.79 Sleep apnea G47.30
[2021-03-19] MEDS: ALPRAZolam 0.5 mg Tablet PO (20:42)
--- NOTE | 2021-03-19 20:58 | PC.NURSE ---
Shift report received from Karen IBARRA. Patient in bed/ no c/o of pain/ discomfort or SOB. Son Juan Pablo at bedside. No needs voiced at this time. Dr Stokes updated on patient's status per request.
[2021-03-19 21:46] LABS: Fungitell 1-3-B Glucan Assay <31 pg/mL; Interpretation NEGATIVE
[2021-03-20] VITALS (12 sets, daily range): BP systolic 108–122; BP diastolic 74–82; PULSE 67–91; RESP 16–81; TEMP 36.4–37.1; O2SAT 88–94
[2021-03-20] MEDS: enoxaparin 40 mg/0.4 mL Syringe SUBCUT ×2 (04:05→17:10)
[2021-03-20 06:19] LABS: Eosinophils % 0.2 %; Hematocrit 41.7 % (42.0-52.0); Hemoglobin 14.2 g/dL (11.7-16.6); Lymphocytes # 0.9 10^3/uL (0.8-4.8); Lymphocytes % 13.3 %; Mean Corpuscular HGB Conc 34.1 g/dL (30.0-36.0); Mean Corpuscular Hemoglobin 29.6 pg (28.0-34.0); Mean Corpuscular Volume 86.9 fl (80-94); Mean Platelet Volume 8.9 fL (7.4-10.4); Monocytes # 0.1 10^3/uL (0.2-0.9); Neutrophils # 5.42 10^3/uL (1.8-7.7); Nucleated Red Blood Cells % 0 %; Platelet Count 283 10^3/cmm (130-400); Red Cell Distribution Width 12.7 % (12.1-15.1); White Blood Count 6.5 10^3/uL (4.0-10.0)
[2021-03-20 06:34] LABS: Lactate Dehydrogenase 654 U/L (135-225)
[2021-03-20 06:39] LABS: D Dimer 11.35 ug/mIFEU (0-0.59)
[2021-03-20 06:53] LABS: NT Pro B Type Natriuretic Pept 39 pg/mL (0-125)
[2021-03-20 07:04] LABS: Anion Gap 18.5 (5-19); Blood Urea Nitrogen 29 mg/dL (6-20); Calcium 8.2 mg/dL (8.5-10.5); Carbon Dioxide 22 mmol/L (22-29); Chloride 100 mmol/L (98-107); Glomerular Filtration Rate 116.2 mL/min (90-130); Glucose 152 mg/dL (65-115); Osmolality Calculated 291 mOsm/kg (285-295); Potassium 4.5 mmol/L (3.5-5.1); Sodium 136 mmol/L (136-145)
[2021-03-20 07:18] LABS: C Reactive Protein 206.1 mg/L (0.0-4.9); Magnesium 2.3 mg/dL (1.7-2.3); Phosphorus 3.4 mg/dL (2.5-4.5)
[2021-03-20] MEDS: ipratropium-albuterol 3 mL Neb INHALATION ×4 (07:31→20:37)
[2021-03-20] MEDS: aspirin 81 mg EC Tablet PO (09:41)
[2021-03-20] MEDS: atorvastatin 40 mg Tablet 80 MG PO (09:41)
[2021-03-20] MEDS: isosorbide mononitrate ER 60 mg Tablet PO (09:41)
[2021-03-20] MEDS: clopidogrel 75 mg Tablet PO (09:41)
[2021-03-20] MEDS: fluticasone nasal spray 16gm Btl 1 SPRAY NASAL ×2 (09:41→17:11)
[2021-03-20] MEDS: pantoprazole DR 40 mg Tablet PO (09:41)
[2021-03-20] MEDS: benzonatate 100 mg Capsule PO (09:41)
[2021-03-20] MEDS: metoprolol tartrate 50 mg Tablet PO ×2 (09:52→21:22)
--- NOTE | 2021-03-20 10:04 | XR_ITS ---
WS: [id number] Exam: XR chest 1V portable [id number] Date/Time of Exam: 03/20/2021 10:13 AM Reason For Exam: Respiratory failure Comparison 03/18/2021. Increasing bilateral pulmonary infiltrates throughout both lungs. Heart size is normal. No pneumothor ax or pleural effusion. The mediastinum and osseous thorax are unremarkable. XR/XR chest 1V portable [id number] IMPRESSION: 1. Worsening bilateral pulmonary infiltrates since previous exam.
[2021-03-20] MEDS: cefepime 2,000 MG in sodium chloride 0.9% (plus) 50 ML 100 MG IV ×2 (11:02→22:42)
--- NOTE | 2021-03-20 11:13 | PC.NURSE ---
Patient still sitting in chair awaiting son to arrive to visit. States he is feeling much better. Is currently on Heated Hi Enrique Nasal cannula. Reports no increase shortness of breath or chest pain at this time. Bed made and bath offered. Refused bath at this time.
--- NOTE | 2021-03-20 11:26 | PC.NUTR ---
Nutrition note: Only 1 documented meal in past 5 days. Appears pt is receiving food from outside but no documentation of whether he is consuming it. Potentially very poor po intake. Recommend additional notes regarding meal intake if possible. See full RD assessments for further details.
[2021-03-20] MEDS: dexamethasone 10 mg/mL INJ 6 MG IVP (13:57)
--- NOTE | 2021-03-20 16:23 | PC.NURSE ---
Notified RT Talia that family was at nurses station and said that patient's oxygen was turned down and now per saturation keeps dropping. his oxygen is at 84% now.
--- NOTE | 2021-03-20 16:25 | PC.NURSE ---
RT Talia went in room with patient.
[2021-03-20] MEDS: FUROsemide 10 mg/mL SDV 2mL 20 MG IVP (19:19)
--- NOTE | 2021-03-20 20:13 | P.PN_ITS ---
Subjective Subjective: Interval history: Patient was seen and examined this morning was seen sitting in the chair,says he fells better as compared to yesterday, is currently on HHFONC requiring 60 % FIO2 @ 40 Ls/min,good urine output with I.V lasix, xray chest done today shows worsening of B/L infiltrates.Extremely high D-Dimer Patient working with I/S and flutter Valve. His other vitals and labs have been reviewed. Medications: Reviewed: Yes Vitals/I&O/Wt Last Vital Signs Temp 97.5 F L 03/20/21 15:25 Pulse 85 03/20/21 15:46 Resp 18 03/20/21 15:46 BP 117/77 03/20/21 15:25 Pulse Ox 91 03/20/21 15:46 03/20/21 03/20/21 03/20/21 06:59 14:59 22:59 Intake Total 530 / 1980 770 / 770 Output Total 450 / 1350 0 / 0 Balance 80 / 630 770 / 770 Weight last 48 hrs Weight 90.718 kg Weight 90.718 kg Physical Exam Const: COMMON NORMALS: patient oriented x3 HENMT: COMMON NORMALS: atraumatic HEAD & SCALP: atraumatic Resp: EFFORT & INSPECTION: Yes respiratory distress and Yes Actively coughing OTHER: Diminished air entry bilaterally, Cardio: COMMON NORMALS: regular rate, regular rhythm, S1 normal heart sound present, S2 normal heart sound present, No gallops present (Cardio), No murmurs present (Cardio), No rub (Cardio) and Peripheral pulses 2+ throughout RATE: regular rate RHYTHM: regular rhythm HEART SOUNDS: S1 normal heart sound present and S2 normal heart sound present PERIPHERAL PULSES: Peripheral pulses 2+ throughout GI: COMMON NORMALS: Normal to inspection, nondistended, normoactive bowel sounds present, Soft to palpation, non-tender, No hepatosplenomegaly present and no masses AUSCULTATION: Yes normoactive bowel sounds PALPATION: Yes Soft to palpation and Yes No hepatosplenomegaly present RECTAL EXAM: Yes deferred Extremity: COMMON NORMALS: no clubbing, cyanosis or edema and no pedal edema Neuro: COMMON NORMALS: patient oriented x3 Data : 03/20/21 05:45 03/20/21 05:59 Micro: Microbiology 03/15/21 15:31 Blood Culture - Final Blood NO GROWTH AFTER 5 DAYS 03/15/21 15:20 Blood Culture - Final Blood NO GROWTH AFTER 5 DAYS 03/20/21 04:15 MRSA Culture - Final Nose A&P Assessment and plan (1) COVID-19: Status: Acute (2) History of hypertension: Status: Acute (3) Respiratory failure with hypoxia: Status: Acute Qualifiers: Chronicity: acute Qualified Code(s): J96.01 - Acute respiratory failure with hypoxia Additional A&P Information Acute hypoxic respiratory failure secondary to Covid pneumonia. Procal negative. Blood cultures negative so far MRSA PCR negative Urine Legionella antigen negative Bacterial antigen panel negative CT angiogram of the chest: 1. Diffuse bilateral hazy groundglass infiltrates compatible with COVID 19 Pneumonia 2. Main pulmonary arteries are normal. No evidence of pulmonary embolus. 3. Reactive mediastinal and paratracheal lymph nodes. Repeat CT chest without contrast:bilateral, multifocal pulmonary ground-glass opacities.No pneumothorax no pneumomediastinum. Cardiac echocardiogram 1-Normal left ventricular cavity size. Normal left ventricular systolic function. No regional wall motion abnormalities. Left ventricular ejection fraction is estimated at 60 %. Grade I/IV diastolic dysfunction (abnormal relaxation filling pattern), normal to mildly elevated filling pressures. 2-The right ventricle is normal in size and function. RVSP could not be calculated due to incomplete tricuspid regurgitation velocity profile. 3-Moderately thickened mitral valve. No mitral valve stenosis. Trace mitral valve regurgitation. 4-Moderate aortic valve calcification. No aortic valve stenosis. No aortic valve regurgitation. 5-There is no pericardial effusion. 6-Right atrial pressure is around 5 mm of mercury. 7-No significant change since the prior echocardiogram study of 03/27/2017. Remdesivir 5-day course completed Decadron 6 mg IV daily x 10 days Baricitinib 12/21 S/P 1 dose Actemra on 03/19 DuoNebs, Advair inhaler Ascorbic acid and Zinc Lovenox 40 subcu q12h Daily Supplemental oxygen as needed Lasix as needed Monitor x-ray, chest , ABG, Monitor inflammatory markers : ESR , CRP, LDH, ferritin, D-dimer. Currently on cefepime, azithromycin and vancomycin has been discontinued COPD not in exacerbation Duoneb q6hr Remainder as noted above. DVT ppx Lovenox 40 mg SQ daily Additional Medical Problems Coronary artery disease, continue aspirin, Plavix troponin 20 Hypertension Dyslipidemia GERD Attestations Medical Necessity Statement*: Patient needs to be in hospital for the management of severe COVID PNA Coding Level of Care Code Acute Electronic Game Developer for Chg Fwd Diagnoses COVID-19 U07.1 History of hypertension Z86.79 Respiratory failure with hypoxia J96.01 Chronicity: acute
[2021-03-20] MEDS: ALPRAZolam 0.5 mg Tablet PO (22:42)
[2021-03-21] VITALS (17 sets, daily range): BP systolic 114–123; BP diastolic 54–84; PULSE 52–85; RESP 16–22; TEMP 36.3–36.7; O2SAT 90–96
--- NOTE | 2021-03-21 01:47 | PC.NURSE ---
patient resting at this time / no s/s of pain or discomfort
[2021-03-21] MEDS: enoxaparin 40 mg/0.4 mL Syringe SUBCUT ×2 (05:26→18:35)
[2021-03-21 06:19] LABS: Lactate Dehydrogenase 587 U/L (135-225)
[2021-03-21] MEDS: ipratropium-albuterol 3 mL Neb INHALATION ×4 (07:51→20:31)
[2021-03-21] MEDS: clopidogrel 75 mg Tablet PO (09:09)
[2021-03-21] MEDS: pantoprazole DR 40 mg Tablet PO (09:09)
[2021-03-21] MEDS: isosorbide mononitrate ER 60 mg Tablet PO (09:10)
[2021-03-21] MEDS: aspirin 81 mg EC Tablet PO (09:10)
[2021-03-21] MEDS: atorvastatin 40 mg Tablet 80 MG PO (09:10)
[2021-03-21] MEDS: metoprolol tartrate 50 mg Tablet PO ×2 (09:25→22:21)
[2021-03-21] MEDS: fluticasone nasal spray 16gm Btl 1 SPRAY NASAL (09:25)
[2021-03-21] MEDS: cefepime 2,000 MG in sodium chloride 0.9% (plus) 50 ML 100 MG IV ×2 (10:35→22:19)
--- NOTE | 2021-03-21 11:55 | XR_ITS ---
WS: [id number] Exam: XR chest 1V portable [id number] Date/Time of Exam: 03/21/2021 11:57 AM Reason For Exam: covid Comparison 03/20/2021. Patchy bilateral consolidating infiltrates are noted. No change since the last study. The lungs remai n fully expanded. No pleural effusions. Cardiomediastinal silhouette is unremarkable bony structures are intact. XR/XR chest 1V portable [id number] IMPRESSION: 1. Bilateral patchy consolidating pneumonia showing no change.
[2021-03-21 12:05] LABS: Erythrocyte Sedimentation Rate 58 mm/hr (0-10)
[2021-03-21] MEDS: dexamethasone 10 mg/mL INJ 6 MG IVP (12:56)
--- NOTE | 2021-03-21 15:18 | PM.PN ---
Subjective Subjective: Interval history: Patient was seen and examined this morning continues to have slow improvement, Still gets significantly short of breath with exertion, a.m. chest x-ray: Shows persistent: Bilateral infiltrates, no significant change from prior chest x-rays D-dimer is trending down.He is 2 Ls negative, his appetite has improved. Medications: Reviewed: Yes Vitals/I&O/Wt Last Vital Signs Temp 98.1 F 03/21/21 12:00 Pulse 82 03/21/21 12:25 Resp 16 03/21/21 12:25 BP 120/73 03/21/21 12:00 Pulse Ox 92 03/21/21 12:25 03/21/21 03/21/21 03/21/21 06:59 14:59 22:59 Intake Total 150 / 920 1010 / 1010 Output Total 1000 / 1000 Balance -850 / -80 1010 / 1010 Weight last 48 hrs Weight 87.09 kg Weight 90.718 kg Physical Exam Const: COMMON NORMALS: patient oriented x3 HENMT: COMMON NORMALS: atraumatic HEAD & SCALP: atraumatic Resp: EFFORT & INSPECTION: Yes respiratory distress and Yes Actively coughing OTHER: Diminished air entry bilaterally, Cardio: COMMON NORMALS: regular rate, regular rhythm, S1 normal heart sound present, S2 normal heart sound present, No gallops present (Cardio), No murmurs present (Cardio), No rub (Cardio) and Peripheral pulses 2+ throughout RATE: regular rate RHYTHM: regular rhythm HEART SOUNDS: S1 normal heart sound present and S2 normal heart sound present PERIPHERAL PULSES: Peripheral pulses 2+ throughout GI: COMMON NORMALS: Normal to inspection, nondistended, normoactive bowel sounds present, Soft to palpation, non-tender, No hepatosplenomegaly present and no masses AUSCULTATION: Yes normoactive bowel sounds PALPATION: Yes Soft to palpation and Yes No hepatosplenomegaly present RECTAL EXAM: Yes deferred Extremity: COMMON NORMALS: no clubbing, cyanosis or edema and no pedal edema Neuro: COMMON NORMALS: patient oriented x3 Data : 03/20/21 05:45 03/20/21 05:59 Micro: Microbiology 03/15/21 15:31 Blood Culture - Final Blood NO GROWTH AFTER 5 DAYS 03/15/21 15:20 Blood Culture - Final Blood NO GROWTH AFTER 5 DAYS 03/20/21 04:15 MRSA Culture - Final Nose A&P Assessment and plan (1) COVID-19: Status: Acute (2) History of hypertension: Status: Acute (3) Respiratory failure with hypoxia: Status: Acute Qualifiers: Chronicity: acute Qualified Code(s): J96.01 - Acute respiratory failure with hypoxia Additional A&P Information Acute hypoxic respiratory failure secondary to Covid pneumonia. Procal negative. Blood cultures negative so far MRSA PCR negative Urine Legionella antigen negative Bacterial antigen panel negative Influenza negative Beta-1 3D glucan: Negative RSV panel pending Galactomannan Ag : Pending CT angiogram of the chest: 1. Diffuse bilateral hazy groundglass infiltrates compatible with COVID 19 Pneumonia 2. Main pulmonary arteries are normal. No evidence of pulmonary embolus. 3. Reactive mediastinal and paratracheal lymph nodes. Repeat CT chest without contrast:bilateral, multifocal pulmonary ground-glass opacities.No pneumothorax no pneumomediastinum. Cardiac echocardiogram 1-Normal left ventricular cavity size. Normal left ventricular systolic function. No regional wall motion abnormalities. Left ventricular ejection fraction is estimated at 60 %. Grade I/IV diastolic dysfunction (abnormal relaxation filling pattern), normal to mildly elevated filling pressures. 2-The right ventricle is normal in size and function. RVSP could not be calculated due to incomplete tricuspid regurgitation velocity profile. 3-Moderately thickened mitral valve. No mitral valve stenosis. Trace mitral valve regurgitation. 4-Moderate aortic valve calcification. No aortic valve stenosis. No aortic valve regurgitation. 5-There is no pericardial effusion. 6-Right atrial pressure is around 5 mm of mercury. 7-No significant change since the prior echocardiogram study of 03/27/2017. Remdesivir 5-day course completed Decadron 6 mg IV daily x 10 days Baricitinib 12/21 S/P 1 dose Actemra on 03/19 DuoNebs, Advair inhaler Ascorbic acid and Zinc Lovenox 40 subcu q12h Daily Supplemental oxygen as needed Lasix as needed Monitor x-ray, chest , ABG, Monitor inflammatory markers : ESR , CRP, LDH, ferritin, D-dimer. Currently on cefepime, azithromycin and vancomycin has been discontinued COPD not in exacerbation Duoneb q6hr Remainder as noted above. DVT ppx on Lovenox Additional Medical Problems Coronary artery disease, continue aspirin, Plavix troponin 20 Hypertension Dyslipidemia GERD Attestations Medical Necessity Statement*: In hospital for management of respiratory failure secondary to Covid pneumonia Coding Level of Care Code Acute Environmental Solutions Engineer for Chg Fwd Exam Detailed Diagnoses COVID-19 U07.1 History of hypertension Z86.79 Respiratory failure with hypoxia J96.01 Chronicity: acute
--- NOTE | 2021-03-21 15:22 | PM.PN ---
Subjective Subjective: Interval history: The patient was seen and examined. He is resting comfortably in bed. He is able to have a conversation without having any significant respiratory difficulty. His inflammatory markers are coming down. Chest x-ray this morning revealed similar changes as before. His oxygen saturation is in the low 90s at this point. The patient is currently on high flow nasal cannula 55% FiO2. Medications: Reviewed: Yes Vitals/I&O/Wt Last Vital Signs Temp 98.1 F 03/21/21 12:00 Pulse 82 03/21/21 12:25 Resp 16 03/21/21 12:25 BP 120/73 03/21/21 12:00 Pulse Ox 92 03/21/21 12:25 03/21/21 03/21/21 03/21/21 06:59 14:59 22:59 Intake Total 150 / 920 1010 / 1010 Output Total 1000 / 1000 Balance -850 / -80 1010 / 1010 Weight last 48 hrs Weight 192 lb Weight 200 lb Physical Exam Narrative: EXAM NARRATIVE: General: Patient is awake alert and oriented, not tachypneic today. Appears comfortable Neck: No JVD Respiratory: Auscultation: There is minimal crackles at the lung bases, his breath sound is not diminished today Cardiovascular: Regular rate and rhythm, S1-S2 present, no murmur, no peripheral edema. Abdomen: Soft, nontender, nondistended, positive bowel sound Musculoskeletal: No obvious joint deformity Skin: No rash Neuro: Mental status is normal, no gross cranial nerve deficit, normal motor function Data : 03/20/21 05:45 03/20/21 05:59 Micro: Microbiology 03/15/21 15:31 Blood Culture - Final Blood NO GROWTH AFTER 5 DAYS 03/15/21 15:20 Blood Culture - Final Blood NO GROWTH AFTER 5 DAYS 03/20/21 04:15 MRSA Culture - Final Nose Attestation for Other Data: I personally reviewed and interpreted the following: Other data: I have reviewed his laboratory, [place] and radiologic data. A&P Assessment and plan (1) Respiratory failure with hypoxia: The patient has severe COVID-19. CT scan is consistent with bilateral groundglass opacities which is commonly seen in COVID-19. The patient does have history of coronary artery disease but no evidence of heart failure. The patient received Tocilizumab on March 19. His inflammatory markers are coming down. His oxygen requirement had come down from 65 to 50 to 55%. His oxygenation has not gotten worse in the past 5 days. Similarly, there has been no significant worsening of his chest x-ray in the last 5 days as well. I believe the patient is going to slowly heal. At this point, he can be transferred to long-term acute care. I have discussed this with the patient and he is in agreement. No evidence of active infection at this time. The cefepime can be discontinued after 2 weeks. Similarly, the dexamethasone can be discontinued after a total of 2 weeks therapy. Once the patient is discharged from [facility] I will follow up with him as outpatient. Status: Acute Qualifiers: Chronicity: acute Qualified Code(s): J96.01 - Acute respiratory failure with hypoxia (2) COVID-19: Please see above. Status: Acute (3) History of coronary artery disease: No evidence of active coronary artery disease at this point. Lasix intermittently to keep the input and output even. Status: Acute (4) Sleep apnea: CPAP at nighttime. Status: Acute Attestations Medical Necessity Statement*: Will defer to the primary team Coding Level of Care Code Acute Chain Tender for Deuce Roman Diagnoses Respiratory failure with hypoxia J96.01 Chronicity: acute COVID-19 U07.1 History of coronary artery disease Z86.79 Sleep apnea G47.30
[2021-03-21 19:22] LABS: Aspergillus AG,EIA,Serum NOT DETECTED; Aspergillus Galactomannan Inde <0.50
--- NOTE | 2021-03-21 20:13 | PC.NURSE ---
Shift report received from Inessa IBARRA. Patient in bed /awake /watching TV. Son at bedside. IV patent SL. HF in place at this time. Denies pain or discomfort. No needs voiced at this time.
[2021-03-21] MEDS: ALPRAZolam 0.5 mg Tablet PO (23:10)
[2021-03-22] VITALS (14 sets, daily range): BP systolic 104–127; BP diastolic 68–84; PULSE 50–88; RESP 16–20; TEMP 36.4–36.9; O2SAT 89–95
--- NOTE | 2021-03-22 01:34 | PC.NURSE ---
Patient in bed/ awake. Requesting to have RT paged to place CPap. RT sent secured message. Denies pain or discomfort / No other needs voiced at this time.
[2021-03-22] MEDS: enoxaparin 40 mg/0.4 mL Syringe SUBCUT ×2 (05:48→17:33)
[2021-03-22 06:45] LABS: Basophils % 0.2 %; Eosinophils % 0.5 %; Hematocrit 40.4 % (42.0-52.0); Hemoglobin 13.5 g/dL (11.7-16.6); Lymphocytes # 0.9 10^3/uL (0.8-4.8); Lymphocytes % 15.2 %; Mean Corpuscular HGB Conc 33.4 g/dL (30.0-36.0); Mean Corpuscular Hemoglobin 29.5 pg (28.0-34.0); Mean Corpuscular Volume 88.4 fl (80-94); Mean Platelet Volume 9.5 fL (7.4-10.4); Monocytes # 0.4 10^3/uL (0.2-0.9); Neutrophils % 77.6 %; Nucleated Red Blood Cells % 0 %; Platelet Count 309 10^3/cmm (130-400); Red Blood Count 4.57 10^6/uL (4.1-5.3); Red Cell Distribution Width 12.5 % (12.1-15.1); White Blood Count 6.2 10^3/uL (4.0-10.0)
[2021-03-22 07:03] LABS: D Dimer 5.17 ug/mIFEU (0-0.59)
[2021-03-22 07:07] LABS: Anion Gap 12.3 (5-19); Blood Urea Nitrogen 31 mg/dL (6-20); C Reactive Protein 37.4 mg/L (0.0-4.9); Calcium 8.2 mg/dL (8.5-10.5); Carbon Dioxide 24 mmol/L (22-29); Chloride 103 mmol/L (98-107); Glomerular Filtration Rate 116.2 mL/min (90-130); Glucose 105 mg/dL (65-115); Osmolality Calculated 287 mOsm/kg (285-295); Potassium 4.3 mmol/L (3.5-5.1); Sodium 135 mmol/L (136-145)
[2021-03-22 07:11] LABS: Lactate Dehydrogenase 461 U/L (135-225)
[2021-03-22] MEDS: ipratropium-albuterol 3 mL Neb INHALATION ×4 (09:01→21:47)
[2021-03-22] MEDS: metoprolol tartrate 50 mg Tablet PO ×2 (09:11→22:02)
[2021-03-22] MEDS: aspirin 81 mg EC Tablet PO (09:16)
[2021-03-22] MEDS: isosorbide mononitrate ER 60 mg Tablet PO (09:16)
[2021-03-22] MEDS: atorvastatin 40 mg Tablet 80 MG PO (09:16)
[2021-03-22] MEDS: clopidogrel 75 mg Tablet PO (09:16)
[2021-03-22] MEDS: pantoprazole DR 40 mg Tablet PO (09:16)
[2021-03-22] MEDS: cefepime 2,000 MG in sodium chloride 0.9% (plus) 50 ML 100 MG IV ×2 (10:51→22:02)
[2021-03-22] MEDS: dexamethasone 10 mg/mL INJ 6 MG IVP (13:05)
[2021-03-22 13:58] LABS: Erythrocyte Sedimentation Rate 41 mm/hr (0-10)
--- NOTE | 2021-03-22 17:16 | PM.PN ---
Subjective Subjective: Interval history: Patient was seen and examined this morning, says he feels better, inflammatory markers are trending down, still requiring 60% FiO2 at 45 L/min through [facility]. Medications: Reviewed: Yes Vitals/I&O/Wt Last Vital Signs Temp 98.2 F 03/22/21 15:51 Pulse 88 03/22/21 15:56 Resp 16 03/22/21 15:51 BP 104/68 03/22/21 15:51 Pulse Ox 89 L 03/22/21 15:51 03/22/21 03/22/21 03/22/21 06:59 14:59 22:59 Intake Total 50 / 50 Output Total 500 / 1025 Balance -500 / 35 50 / 50 Weight last 48 hrs Weight 87.09 kg Physical Exam Const: COMMON NORMALS: patient oriented x3 HENMT: COMMON NORMALS: atraumatic HEAD & SCALP: atraumatic Resp: COMMON NORMALS: clear to auscultation bilaterally AUSCULTATION: clear to auscultation bilaterally OTHER: Cardio: COMMON NORMALS: regular rate, regular rhythm, S1 normal heart sound present, S2 normal heart sound present, No gallops present (Cardio), No murmurs present (Cardio), No rub (Cardio) and Peripheral pulses 2+ throughout RATE: regular rate RHYTHM: regular rhythm HEART SOUNDS: S1 normal heart sound present and S2 normal heart sound present PERIPHERAL PULSES: Peripheral pulses 2+ throughout GI: COMMON NORMALS: Normal to inspection, nondistended, normoactive bowel sounds present, Soft to palpation, non-tender, No hepatosplenomegaly present and no masses AUSCULTATION: Yes normoactive bowel sounds PALPATION: Yes Soft to palpation and Yes No hepatosplenomegaly present RECTAL EXAM: Yes deferred Extremity: COMMON NORMALS: no clubbing, cyanosis or edema and no pedal edema Neuro: COMMON NORMALS: patient oriented x3 Data : 03/22/21 05:47 03/22/21 05:47 A&P Assessment and plan (1) COVID-19: Status: Acute (2) History of hypertension: Status: Acute (3) Respiratory failure with hypoxia: Status: Acute Qualifiers: Chronicity: acute Qualified Code(s): J96.01 - Acute respiratory failure with hypoxia Additional A&P Information Acute hypoxic respiratory failure secondary to Covid pneumonia. Procal negative. Blood cultures negative so far MRSA PCR negative Urine Legionella antigen negative Bacterial antigen panel negative Influenza negative Beta-1 3D glucan: Negative RSV panel pending Galactomannan Ag : Pending CT angiogram of the chest: 1. Diffuse bilateral hazy groundglass infiltrates compatible with COVID 19 Pneumonia 2. Main pulmonary arteries are normal. No evidence of pulmonary embolus. 3. Reactive mediastinal and paratracheal lymph nodes. Repeat CT chest without contrast:bilateral, multifocal pulmonary ground-glass opacities.No pneumothorax no pneumomediastinum. Follow C.T Chest without contrast Lower extremity Doppler vein: Negative for DVT Repeat lower extremity Doppler vein: Cardiac echocardiogram 1-Normal left ventricular cavity size. Normal left ventricular systolic function. No regional wall motion abnormalities. Left ventricular ejection fraction is estimated at 60 %. Grade I/IV diastolic dysfunction (abnormal relaxation filling pattern), normal to mildly elevated filling pressures. 2-The right ventricle is normal in size and function. RVSP could not be calculated due to incomplete tricuspid regurgitation velocity profile. 3-Moderately thickened mitral valve. No mitral valve stenosis. Trace mitral valve regurgitation. 4-Moderate aortic valve calcification. No aortic valve stenosis. No aortic valve regurgitation. 5-There is no pericardial effusion. 6-Right atrial pressure is around 5 mm of mercury. 7-No significant change since the prior echocardiogram study of 03/27/2017. Remdesivir 5-day course completed Decadron 6 mg IV daily x 10 days Baricitinib 12/21 S/P 1 dose Actemra on 03/19 DuoNebs, Advair inhaler Ascorbic acid and Zinc Lovenox 40 subcu q12h Daily Supplemental oxygen as needed Lasix as needed Monitor x-ray, chest , ABG, Monitor inflammatory markers : ESR , CRP, LDH, ferritin, D-dimer. Currently on cefepime, azithromycin and vancomycin has been discontinued COPD not in exacerbation Duoneb q6hr Remainder as noted above. DVT ppx on Lovenox Additional Medical Problems Coronary artery disease, continue aspirin, Plavix troponin 20 Hypertension Dyslipidemia GERD Disposition: [facility] Process will be started coming Thursday. Attestations Medical Necessity Statement*: Patient is to be in hospital for management of pneumonia. 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
[2021-03-22] MEDS: ALPRAZolam 0.5 mg Tablet PO (23:53)
[2021-03-23] VITALS (14 sets, daily range): BP systolic 101–125; BP diastolic 64–79; PULSE 56–88; RESP 17–21; TEMP 36.4–36.8; O2SAT 88–98
[2021-03-23 05:55] LABS: Basophils % 0.2 %; Eosinophils % 0.8 %; Hematocrit 41.1 % (42.0-52.0); Hemoglobin 13.9 g/dL (11.7-16.6); Lymphocytes % 19.3 %; Mean Corpuscular HGB Conc 33.8 g/dL (30.0-36.0); Mean Corpuscular Hemoglobin 29.1 pg (28.0-34.0); Mean Corpuscular Volume 86.2 fl (80-94); Mean Platelet Volume 9.5 fL (7.4-10.4); Monocytes # 0.4 10^3/uL (0.2-0.9); Monocytes % 7.7 %; Neutrophils # 3.62 10^3/uL (1.8-7.7); Neutrophils % 71.2 %; Nucleated Red Blood Cells % 0 %; Platelet Count 307 10^3/cmm (130-400); Red Blood Count 4.77 10^6/uL (4.1-5.3); Red Cell Distribution Width 12.3 % (12.1-15.1); White Blood Count 5.1 10^3/uL (4.0-10.0)
[2021-03-23 06:16] LABS: D Dimer 5.73 ug/mIFEU (0-0.59)
[2021-03-23 06:20] LABS: Anion Gap 17.3 (5-19); Blood Urea Nitrogen 30 mg/dL (6-20); Carbon Dioxide 21 mmol/L (22-29); Chloride 102 mmol/L (98-107); Glomerular Filtration Rate 138.9 mL/min (90-130); Glucose 104 mg/dL (65-115); Osmolality Calculated 288 mOsm/kg (285-295); Potassium 4.3 mmol/L (3.5-5.1); Sodium 136 mmol/L (136-145)
[2021-03-23 06:21] LABS: Creatinine Clr Calc Pharmacy 149.1287
[2021-03-23] MEDS: enoxaparin 40 mg/0.4 mL Syringe SUBCUT ×2 (06:53→17:45)
--- NOTE | 2021-03-23 08:00 | CTR_ITS ---
PROCEDURE INFORMATION: Exam: CT Chest Without Contrast; Diagnostic Exam date and time: 03/23/2021 8:00 AM Age: 55 years old Clinical indication: Shortness of breath; Patient HX: Pneumonia, SOB; Additional info: Pna TECHNIQUE: Imaging protocol: Diagnostic computed tomography of the chest without contrast. Radiation optimization: All CT scans at this facility use at least one of these dose optimization techniques: automated exposure control; mA and/or kV adjustment per patient size (includes targeted exams where dose is matched to clinical indication); or iterative reconstruction. COMPARISON: 1. CT chest wo con [id number] 03/16/2021 2:29 PM 2. CR XR chest 1V portable [id number] 03/21/2021 12:42:36 PM RADIATION DOSE METRICS: Total DLP (mGy-cm): 854.32 FINDINGS: Lungs: Diffuse alveolar opacities have become more confluent and retractile since March 16. There are scattered areas of uninvolved lung. Airways normal caliber and patent. Pleural spaces: Unremarkable. No pneumothorax. No pleural effusion. Heart: Unremarkable. No cardiomegaly. No pericardial effusion. Aorta: Unremarkable. No aortic aneurysm. Lymph nodes: Unremarkable. No enlarged lymph nodes. Bones/joints: Unremarkable. No acute fracture. Soft tissues: Unremarkable. CT/CT chest wo con [id number] IMPRESSION: There are again diffuse alveolar opacities, now more confluent and retractile consistent with evolving COVID-19 pneumonia.
--- NOTE | 2021-03-23 08:00 | USR_ITS ---
PROCEDURE INFORMATION: Exam: US Duplex Lower Extremity Veins, Bilateral Exam date and time: 03/23/2021 8:00 AM Age: 55 years old Clinical indication: Other: Covid +; Additional info: R/O dvt TECHNIQUE: Imaging protocol: Real-time duplex ultrasound of the extremities with 2-D velasquez scale, color Doppler flow and spectral waveform analysis with image documentation. Complete exam focused on the bilateral lower extremity veins. COMPARISON: [place] [id number] 03/16/2021 12:56 PM FINDINGS: Right deep veins: Unremarkable. The common femoral, femoral, proximal profunda femoral, popliteal, and visualized calf veins are patent without thrombus. Normal Doppler waveforms. Normal compressibility and/or augmentation response. Right superficial veins: Saphenofemoral junction is patent without thrombus. Left deep veins: Unremarkable. The common femoral, femoral, proximal profunda femoral, popliteal, and visualized calf veins are patent without thrombus. Normal Doppler waveforms. Normal compressibility and/or augmentation response. Left superficial veins: Saphenofemoral junction is patent without thrombus. Soft tissues: Unremarkable. US/[place] [id number] IMPRESSION: No evidence of bilateral lower extremity deep vein thrombosis.
[2021-03-23] MEDS: ipratropium-albuterol 3 mL Neb INHALATION ×4 (08:41→21:51)
[2021-03-23] MEDS: isosorbide mononitrate ER 60 mg Tablet PO (09:12)
[2021-03-23] MEDS: aspirin 81 mg EC Tablet PO (09:12)
[2021-03-23] MEDS: pantoprazole DR 40 mg Tablet PO (09:12)
[2021-03-23] MEDS: clopidogrel 75 mg Tablet PO (09:12)
[2021-03-23] MEDS: atorvastatin 40 mg Tablet 80 MG PO (09:12)
[2021-03-23] MEDS: metoprolol tartrate 50 mg Tablet PO ×2 (09:12→20:46)
[2021-03-23] MEDS: cefepime 2,000 MG in sodium chloride 0.9% (plus) 50 ML 100 MG IV ×2 (11:19→23:26)
[2021-03-23] MEDS: dexamethasone 10 mg/mL INJ 6 MG IVP (13:29)
[2021-03-23 17:27] LABS: Adenovirus Not Detected (Not Detected); Human Metapneumovirus Not Detected (Not Detected); Human Parainflu Virus 1 Not Detected (Not Detected); Human Parainflu Virus 2 Not Detected (Not Detected); Human Parainflu Virus 3 Not Detected (Not Detected); Human Rsv A Not Detected (Not Detected); Influenza A Not Detected (Not Detected); Influenza B Not Detected (Not Detected); Rhinovirus/Enterovirus Not Detected (Not Detected)
--- NOTE | 2021-03-23 18:55 | PM.PN ---
Subjective Subjective: Interval history: Patient was seen and examined this morning, says he feels better, has been transitioned to nasal cannula On 11lpm pendant Medications: Reviewed: Yes Vitals/I&O/Wt Last Vital Signs Temp 98.0 F 03/23/21 16:00 Pulse 67 03/23/21 16:00 Resp 18 03/23/21 16:00 BP 118/71 03/23/21 16:00 Pulse Ox 90 03/23/21 16:00 03/23/21 03/23/21 03/23/21 06:59 14:59 22:59 Intake Total 650 / 940 290 / 290 Output Total 400 / 400 600 / 600 Balance 250 / 540 -310 / -310 Weight last 48 hrs Weight 87.997 kg Physical Exam Const: COMMON NORMALS: patient oriented x3 HENMT: COMMON NORMALS: atraumatic HEAD & SCALP: atraumatic Resp: COMMON NORMALS: clear to auscultation bilaterally EFFORT & INSPECTION: Yes respiratory distress and Yes Actively coughing AUSCULTATION: clear to auscultation bilaterally OTHER: Cardio: COMMON NORMALS: regular rate, regular rhythm, S1 normal heart sound present, S2 normal heart sound present, No gallops present (Cardio), No murmurs present (Cardio), No rub (Cardio) and Peripheral pulses 2+ throughout RATE: regular rate RHYTHM: regular rhythm HEART SOUNDS: S1 normal heart sound present and S2 normal heart sound present PERIPHERAL PULSES: Peripheral pulses 2+ throughout GI: COMMON NORMALS: Normal to inspection, nondistended, normoactive bowel sounds present, Soft to palpation, non-tender, No hepatosplenomegaly present and no masses AUSCULTATION: Yes normoactive bowel sounds PALPATION: Yes Soft to palpation and Yes No hepatosplenomegaly present RECTAL EXAM: Yes deferred Extremity: COMMON NORMALS: no clubbing, cyanosis or edema and no pedal edema Neuro: COMMON NORMALS: patient oriented x3 Data : 03/23/21 05:03 03/23/21 05:03 A&P Assessment and plan (1) COVID-19: Status: Acute (2) History of hypertension: Status: Acute (3) Respiratory failure with hypoxia: Status: Acute Qualifiers: Chronicity: acute Qualified Code(s): J96.01 - Acute respiratory failure with hypoxia Additional A&P Information Acute hypoxic respiratory failure secondary to Covid pneumonia. Procal negative. Blood cultures negative so far MRSA PCR negative Urine Legionella antigen negative Bacterial antigen panel negative Influenza negative Beta-1 3D glucan: Negative RSV panel pending Galactomannan Ag : Pending CT angiogram of the chest: 1. Diffuse bilateral hazy groundglass infiltrates compatible with COVID 19 Pneumonia 2. Main pulmonary arteries are normal. No evidence of pulmonary embolus. 3. Reactive mediastinal and paratracheal lymph nodes. Repeat CT chest without contrast:bilateral, multifocal pulmonary ground-glass opacities.No pneumothorax no pneumomediastinum. Follow C.T Chest without contrast: No pneumothorax no pleural effusion no pneumomediastinum, extensive bilateral infiltrates Lower extremity Doppler vein: Negative for DVT Repeat lower extremity Doppler vein:: Negative for DVT Cardiac echocardiogram 1-Normal left ventricular cavity size. Normal left ventricular systolic function. No regional wall motion abnormalities. Left ventricular ejection fraction is estimated at 60 %. Grade I/IV diastolic dysfunction (abnormal relaxation filling pattern), normal to mildly elevated filling pressures. 2-The right ventricle is normal in size and function. RVSP could not be calculated due to incomplete tricuspid regurgitation velocity profile. 3-Moderately thickened mitral valve. No mitral valve stenosis. Trace mitral valve regurgitation. 4-Moderate aortic valve calcification. No aortic valve stenosis. No aortic valve regurgitation. 5-There is no pericardial effusion. 6-Right atrial pressure is around 5 mm of mercury. 7-No significant change since the prior echocardiogram study of 03/27/2017. Remdesivir 5-day course completed Decadron 6 mg IV daily x 10 days Baricitinib 12/21 S/P 1 dose Actemra on 03/19 DuoNebs, Advair inhaler Ascorbic acid and Zinc Lovenox 40 subcu q12h Daily Supplemental oxygen as needed Lasix as needed Monitor x-ray, chest , ABG, Monitor inflammatory markers : ESR , CRP, LDH, ferritin, D-dimer. Currently on cefepime, azithromycin and vancomycin has been discontinued COPD not in exacerbation Duoneb q6hr Remainder as noted above. DVT ppx on Lovenox Additional Medical Problems Coronary artery disease, continue aspirin, Plavix troponin 20 Hypertension Dyslipidemia GERD Disposition: Patient has agreed to go to [facility]. Process will be started coming Thursday. 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
[2021-03-24] VITALS (17 sets, daily range): BP systolic 110–121; BP diastolic 64–76; PULSE 50–105; RESP 14–18; TEMP 36.4–36.8; O2SAT 90–96
[2021-03-24] MEDS: ALPRAZolam 0.5 mg Tablet 0.25 MG PO (01:30)
[2021-03-24 05:31] LABS: Basophils % 0.2 %; Eosinophils # 0.1 10^3/uL (0.0-0.8); Eosinophils % 1.5 %; Hematocrit 40.6 % (42.0-52.0); Hemoglobin 13.8 g/dL (11.7-16.6); Lymphocytes # 1.3 10^3/uL (0.8-4.8); Lymphocytes % 22.1 %; Mean Corpuscular Hemoglobin 29.2 pg (28.0-34.0); Mean Corpuscular Volume 85.8 fl (80-94); Mean Platelet Volume 9.3 fL (7.4-10.4); Monocytes # 0.4 10^3/uL (0.2-0.9); Neutrophils # 3.99 10^3/uL (1.8-7.7); Neutrophils % 68.3 %; Nucleated Red Blood Cells % 0 %; Platelet Count 304 10^3/cmm (130-400); Red Blood Count 4.73 10^6/uL (4.1-5.3); Red Cell Distribution Width 12.4 % (12.1-15.1); White Blood Count 5.8 10^3/uL (4.0-10.0)
[2021-03-24 05:53] LABS: Anion Gap 17.2 (5-19); Blood Urea Nitrogen 24 mg/dL (6-20); Carbon Dioxide 20 mmol/L (22-29); Chloride 101 mmol/L (98-107); Glomerular Filtration Rate 138.9 mL/min (90-130); Glucose 96 mg/dL (65-115); Osmolality Calculated 282 mOsm/kg (285-295); Potassium 4.2 mmol/L (3.5-5.1); Sodium 134 mmol/L (136-145)
[2021-03-24 05:57] LABS: Creatinine Clr Calc Pharmacy 149.5468
[2021-03-24] MEDS: enoxaparin 40 mg/0.4 mL Syringe SUBCUT ×2 (06:47→18:18)
[2021-03-24] MEDS: ipratropium-albuterol 3 mL Neb INHALATION ×4 (08:02→20:31)
[2021-03-24] MEDS: atorvastatin 40 mg Tablet 80 MG PO (09:59)
[2021-03-24] MEDS: isosorbide mononitrate ER 60 mg Tablet PO (09:59)
[2021-03-24] MEDS: metoprolol tartrate 50 mg Tablet PO ×2 (10:00→21:50)
[2021-03-24] MEDS: clopidogrel 75 mg Tablet PO (10:00)
[2021-03-24] MEDS: aspirin 81 mg EC Tablet PO (10:00)
[2021-03-24] MEDS: pantoprazole DR 40 mg Tablet PO (10:00)
[2021-03-24] MEDS: fluticasone nasal spray 16gm Btl 1 SPRAY NASAL (10:06)
[2021-03-24] MEDS: cefepime 2,000 MG in sodium chloride 0.9% (plus) 50 ML 100 MG IV (10:13)
--- NOTE | 2021-03-24 12:22 | PC.CHAP ---
Pastoral Care Encounter/Spiritual Assessment Type of Contact [] Declined gastroenterology physician visit [] Patient/Family/Request visit [] Outpatient visit [] Follow-up visit [] Physician referral [] Code/Alert [XX] Routine visit [] Staff referral [] Actively dying [] Patient sleeping [] Family support [] [] Out of room [] Palliative care [] [] Receiving care in room [] Pre-surgical visit [] Trauma [] Long length of stay [] ICU visit [XX] Other: isolation Relational/Emotional Strength [] Patient feels connected with others/family/visitors/staff [] Distress [] Loneliness/isolation [] Abandonment Spirituality of Patient [] Person of Mary [] Attends Religious of their Mary [] Believes in Prayer [] Reads Bible or Spiritism materials [] There are Spiritual issues to be addressed Baseball Coach Interventions [] Prayer [] Active listening [] Non-anxious presence [] Spiritual/emotional support [] Crisis/trauma care [] Spiritual counseling [] Bereavement support [] Provided bereavement packet [] Provided Bible/devotional materials [] Provided toy/stuffed animal, coloring book to patient or family member [] Provided Communion [] Anointing/[place] [] Salvation [] Completed spiritual assessment [] Other: Impact on Illness or Injury [] Angry [] Fearful [] Anxious [] Often cries [] Exhaustion [] Unable to work [] Unable to attend religious [] Unable to walk/stand [] Unable to read [] Unable to drive [] Unable to eat/drink [] Unable to sleep [] Unable to be with family [] Patient intubated [] Other: Summary Time spent with patient
[2021-03-24] MEDS: dexamethasone 10 mg/mL INJ 6 MG IVP (13:27)
[2021-03-25] VITALS (12 sets, daily range): BP systolic 106–120; BP diastolic 69–81; PULSE 61–76; RESP 15–18; TEMP 36.4–36.9; O2SAT 86–95
[2021-03-25] MEDS: cefepime 2,000 MG in sodium chloride 0.9% (plus) 50 ML 100 MG IV (00:23)
[2021-03-25] MEDS: ALPRAZolam 0.5 mg Tablet 0.25 MG PO (01:30)
[2021-03-25] MEDS: enoxaparin 40 mg/0.4 mL Syringe SUBCUT (05:13)
[2021-03-25] MEDS: pantoprazole DR 40 mg Tablet PO (08:43)
[2021-03-25] MEDS: metoprolol tartrate 50 mg Tablet PO (08:43)
[2021-03-25] MEDS: clopidogrel 75 mg Tablet PO (08:43)
[2021-03-25] MEDS: fluticasone nasal spray 16gm Btl 1 SPRAY NASAL (08:43)
[2021-03-25] MEDS: atorvastatin 40 mg Tablet 80 MG PO (08:43)
[2021-03-25] MEDS: aspirin 81 mg EC Tablet PO (08:43)
[2021-03-25] MEDS: isosorbide mononitrate ER 60 mg Tablet PO (08:43)
[2021-03-25] MEDS: ipratropium-albuterol 3 mL Neb INHALATION ×3 (08:51→16:11)
--- NOTE | 2021-03-25 13:39 | PM.DCS ---
Discharge Providers Date of Admission: 03/10/21 03:57 Date of Discharge: March 25, 2021 Attending Provider at Admission: Wilian Lock MD Attending Provider at Discharge: Nakul Grover MD Primary Care Provider: Soraya Villa APN Diagnoses at Discharge Discharge Diagnosis (1) COVID-19: Status: Acute (2) History of hypertension: Status: Acute (3) Respiratory failure with hypoxia: Status: Acute Qualifiers: Chronicity: acute Qualified Code(s): J96.01 - Acute respiratory failure with hypoxia Reason for Visit Reason for Visit: SOB Hospital Course Hospital Course This is a 55-year-old male with a past medical history of CAD, hypertension, dyslipidemia, GERD who presents to [facility] due to shortness of breath Patient was admitted to [facility] for acute hypoxic respiratory failure secondary to COVID-19 pneumonia, he completed 5-day course of remdesivir, completed Decadron as inpatient, received 9 doses of baricitinib, 1 dose of Actemra, due to worsening oxygen requirements he was placed on broad-spectrum antibiotic for secondary bacterial pneumonia prophylaxis, pro-Jaziel was negative, blood cultures negative, MRSA nares negative, urine Legionella negative, patient oxygen panel negative, influenza negative, beta-1 3D glucan negative, he completed his antibiotic course as inpatient, CT angiogram was negative for pulmonary emboli, repeat CT of the chest did not show any focal consolidation, lower extremity DVT were negative for DVT, cardiac echocardiogram showed preserved ejection fraction, no regional wall motion abnormality. Patient had slow clinical improvement, was weaned down to 6 L oxygen pendant, ambulating with some shortness of breath with exertion, remained afebrile, normotensive. Patient was discharged 03/25/2021, on home oxygen, inhaler therapy, with close follow-up with pulmonary as outpatient. Patient has adequate amount of help at home including family members to help him at home -Please continue to socially distance, facemask, hand wash -Please follow-up with pulmonary in 2 weeks -Please discuss with pulmonary or primary care about COVID-19 vaccination, flu vaccinations, pneumonia vaccinations -Please continue to hydrate well -Please monitor for fevers, Tylenol for fevers -If any worsening shortness of breath chest pain go to the emergency room -You are at an increased risk of blood clots, continue aspirin and Plavix, continue to be mobile -Monitor for signs of blood clots if so go to the emergency room or call 911 -Please use oxygen as prescribed In terms of his hyper coagulability events and prophylaxis for COVID-19, patient was advised he is at increased risk of hypercoagulable events including but not limited to DVT and pulmonary emboli associated with COVID-19. Patient remains mobile during his hospitalization, he is on aspirin and Plavix which he should continue. Advised patient that in addition to aspirin Plavix, adding a anticoagulant on discharge will increase the risk of bleeding and in his case the risk of bleeding outweighs the benefit as he is already on aspirin and Plavix. Aspirin and Plavix will provide some hypercoagulability prophylaxis. But nonetheless he does have a risk of hypercoagulability events.discussed risks and benefits, he voiced understanding, all l questions answered agreed to proceed. Nonetheless patient was advised to continue to mobile on discharge. Monitor for signs of DVT or pulmonary embolism if so go to the emergency room or call 911. Physical Exam Const: COMMON NORMALS: no acute distress and patient oriented x3 Resp: COMMON NORMALS: normal respiratory effort, No retractions, No use of accessory muscles and clear to auscultation bilaterally AUSCULTATION: clear to auscultation bilaterally Cardio: COMMON NORMALS: regular rate, regular rhythm, S1 normal heart sound present and S2 normal heart sound present RATE: regular rate RHYTHM: regular rhythm HEART SOUNDS: S1 normal heart sound present and S2 normal heart sound present GI: COMMON NORMALS: Normal to inspection, nondistended, normoactive bowel sounds present, Soft to palpation and non-tender PALPATION: Yes Soft to palpation Extremity: COMMON NORMALS: no pedal edema Neuro: COMMON NORMALS: patient oriented x3 Psych: COMMON NORMALS: mental status grossly normal Discharge Data Data Completed and Pending: Completed Studies During Hospitalization Category Date Time Status CT angio chest PE protcl [id number] Rout ine Cat Scan 03/12/21 18:[address] chest wo con 7 1250 Routine Cat Scan 03/16/21 10:[address] chest wo con 7 1250 Routine Cat Scan 03/23/21 08:00 Completed XR chest 1V cornelio ble [id number] Routine Exams 03/15/21 14:19 Completed XR chest 1V cornelio ble [id number] Routine Exams 03/16/21 10:45 Completed XR chest 1V cornelio ble [id number] Routine Exams 03/18/21 08:48 Completed XR chest 1V cornelio ble [id number] Routine Exams 03/20/21 10:04 Completed XR chest 1V cornelio ble [id number] Routine Exams 03/21/21 11:55 Completed XR chest 1V cornelio ble [id number] Stat Exams 03/10/21 01:40 [place] [id number] Routin e Ultrasound 03/16/21 10:44 [place] [id number] Routin e Ultrasound 03/23/21 08:00 Completed CV. echo complete * [id number] Routine Ultrasound 03/12/21 05:00 Completed Pending at discharge Category Date Time Status Erythrocyte Sedim entation Rate AM L ABS Lab 03/22/21 05:47 Received Pneumocystis jiro vecii, QT PCR Rout ine Lab 03/15/21 14:20 Ordered Vitals: Last Vital Signs Temp 97.6 F 03/25/21 08:00 Pulse 68 03/25/21 12:06 Resp 18 03/25/21 12:06 BP 120/81 03/25/21 08:00 Pulse Ox 86 L 03/25/21 12:07 Discharge Plan Discharge Patient Disposition: Home Condition: Stable Prescriptions: New Advair Diskus 250-50 mcg/dose Blister With Device 1 inh inhalation BID.RESPIRATORY 30 Days Qty: 60 RF: 0 benzonatate 100 mg Capsule 100 mg PO TID PRN (Reason: Cough) 15 Days Qty: 45 RF: 0 albuterol sulfate 90 mcg/actuation HFA aerosol inhaler 1 inh inhalation Q6H PRN (Reason: shortness of breath or wheezing) Qty: 8.5 RF: 0 Continued alprazolam [Xanax] 0.25 mg tablet 0.25 mg PO DAILY PRN (Reason: Anxiety) RF: 0 aspirin [Adult Low Dose Aspirin] 81 mg tablet,delayed release (DR/EC) 81 mg PO DAILY Qty: 90 RF: 3 cinnamon bark [Cinnamon] 500 mg capsule 500 mg PO DAILY RF: 0 omega-3 fatty acids [Fish Oil Concentrate] 1,000 mg capsule 3,000 mg PO DAILY RF: 0 coenzyme Q10 10 mg capsule 10 mg PO DAILY RF: 0 pantoprazole 40 mg tablet,delayed release (DR/EC) 40 mg PO DAILY Qty: 90 RF: 3 nitroglycerin [Nitrostat] 0.4 mg tablet, sublingual 0.4 mg sublingual Q5M PRN (Reason: chest pain) Qty: 25 RF: 3 clopidogrel [Plavix] 75 mg tablet 75 mg PO DAILY Qty: 90 RF: 3 isosorbide mononitrate 60 mg tablet extended release 24 hr 60 mg PO DAILY Qty: 90 RF: 3 rosuvastatin 20 mg tablet 20 mg PO DAILY Qty: 90 RF: 3 metoprolol tartrate 50 mg tablet 50 mg PO BID Qty: 60 RF: 6 Changed lisinopril 40 mg tablet 20 mg PO DAILY Qty: 90 RF: 3 Discontinued chlorthalidone 25 mg tablet 25 mg PO DAILY Qty: 90 RF: 3 Discharge Orders: Discharge Order (Routine); Ordered 03/25/21 Ordered By: Nakul Grover Other Ambulatory Orders: DME: Oxygen (Order) Location: None Selected Ordered By: Nakul Grover Referrals: [facility] [Outside] Olinda Cornell MD [Physician] - 1 week Villa,LATANYA Lira [Primary Care Provider] - Discharge Diet: Cardiac Discharge Activity: Resume usual activity Patient Instructions: Opioid Safety Activity Restrictions/Additional Instructions: -Please continue to socially distance, facemask, hand wash -Please follow-up with pulmonary in 2 weeks -Please discuss with pulmonary or primary care about COVID-19 vaccination, flu vaccinations, pneumonia vaccinations -Please continue to hydrate well -Please monitor for fevers, Tylenol for fevers -If any worsening shortness of breath chest pain go to the emergency room -You are at an increased risk of blood clots, continue aspirin and Plavix, continue to be mobile -Monitor for signs of blood clots if so go to the emergency room or call 911 -Please use oxygen as prescribed Discharge Attestations Time Spent in Discharge Care*: less than 30 min Quality Metrics Clinical Quality Measures During this hospital stay, did patient experience: None Coding Level of Care Code Acute [facility] FW DC note Exam Detailed Diagnoses COVID-19 U07.1 History of hypertension Z86.79 Respiratory failure with hypoxia J96.01 Chronicity: acute
== END 2021-03-25 17:05 | disposition home or self-care (01) | DRG 177 ==
LOC: ER 03:45 → MEDSURG 15:13
PROVIDERS: Hospitalist; Admitting Provider Internal Medicine; Emergency Provider Emergency Medicine; PCP Nurse Practitioner Family; Visit Provider Family Medicine
DX: U07.1 COVID-19 (principal); J12.82 Pneumonia due to coronavirus disease 2019; J96.01 Acute respiratory failure with hypoxia; J15.9 Unspecified bacterial pneumonia; I25.10 Atherosclerotic heart disease of native coronary artery without angina pectoris; Z98.61 Coronary angioplasty status; I10 Essential (primary) hypertension; K21.9 Gastro-esophageal reflux disease without esophagitis; I25.2 Old myocardial infarction; Z87.891 Personal history of nicotine dependence; E78.5 Hyperlipidemia, unspecified; J44.9 Chronic obstructive pulmonary disease, unspecified; G47.30 Sleep apnea, unspecified; Z79.82 Long term (current) use of aspirin; Z79.02 Long term (current) use of antithrombotics/antiplatelets
CPT/HCPCS: 36415; 36600; 71045; 71250; 71275; 80048; 80053; 80202; 81003; 82550; 82728; 82803; 83605; 83615; 83735; 83880; 84100; 84145; 84484; 85025; 85378; 85610; 85651; 85730; 86140; 86403; 87040; 87070; 87205; 87305; 87449; 87641; 87804; 92523; 92610; 93005; 93306; 93970; 94640; 94660; 94664; 96372; 96374; 96375; 99291; J0456; J0692; J0696; J1100; J1650; J1940; J2405; J3262; J3370; J7050; Q9967

== ENCOUNTER → 2021-04-16 11:03 | Outpatient (BNVA) | payer OTHER, SELFPAY | PROVIDERS: PCP Nurse Practitioner Family; Visit Provider Internal Medicine Critical Care Medicine | DX: J96.11 Chronic respiratory failure with hypoxia (principal); Z86.16 Personal history of COVID-19 | CPT/HCPCS: 71046; 80053; 85025 ==

== ENCOUNTER 2021-04-26 12:11 | Outpatient (CLI) | payer OTHER, SELFPAY ==
--- NOTE | 2021-04-26 12:19 | XR_ITS ---
WS: [id number] XR chest 2V* [id number] REASON FOR EXAM: Shortness of breath FINDINGS: Compared to the examination of 04/16/2021, there has been some resolution of the diffuse opacities in b oth lungs. Some residual reticular abnormality remains. No other significant interval change or new finding. XR/XR chest 2V* [id number] IMPRESSION: Significant radiographic improvement in both lungs.
== END 2021-04-26 12:12 | disposition home or self-care (01) ==
LOC: RAD 12:16
PROVIDERS: PCP Nurse Practitioner Family; Visit Provider Internal Medicine Critical Care Medicine
DX: R06.02 Shortness of breath (principal)
CPT/HCPCS: 71046

== ENCOUNTER 2021-07-25 14:10 | Outpatient (CLI) | payer OTHER, SELFPAY ==
--- NOTE | 2021-07-25 14:30 | CT_ITS ---
WS: [id number] CT CHEST HIGH-RESOLUTION TECHNIQUE: Noncontrast high-resolution CT of the chest with coronal and sagittal reformatted images. Inspiration, expiration, supine imaging. CLINICAL INFORMATION: Fibrotic lung disease COMPARISON: March 23, 2021 March 16, 2021 DLP: 2096.[address] scans at [facility] use at least one of these dose optimization techniques: automated e xposure control; mA and/or kV adjustment per patient size (includes targeted exams where dose is matc hed to clinical indication); or iterative reconstruction. FINDINGS: Previously described diffuse bilateral airspace infiltrates have improved compared to March 23 21. Residual bilateral scattered hazy groundglass opacities. No focal consolidation or pleural fluid. No evidence of subpleural honeycombing or bronchiectasis. Mild air-trapping in the upper lobes on th e expiratory imaging. Normal caliber thoracic aorta. Mild aortic calcification. No mediastinal or hilar lymphadenopathy. Co ronary calcifications. No axillary lymphadenopathy. Adrenal glands are normal. Small moderate esophageal hiatal hernia. CT/CT chest wo con [id number] IMPRESSION: 1. Previously described airspace infiltrates have improved compared to previou s with residual bilateral hazy groundglass opacities throughout both lungs. 2. No focal consolidation or pleural fluid. 3. No subpleural honeycombing or bronchiectasis. 4. Mild air trapping on expiratory imaging in the upper lobes. 5. No other significant changes compared to previous.
== END 2021-07-25 14:11 | disposition home or self-care (01) ==
LOC: RAD 14:11
PROVIDERS: PCP Nurse Practitioner Family; Visit Provider Internal Medicine Critical Care Medicine
DX: J84.10 Pulmonary fibrosis, unspecified (principal)
CPT/HCPCS: 71250

== ENCOUNTER 2021-08-13 16:09 | Outpatient (CLI) | payer OTHER, SELFPAY ==
[2021-08-13 17:33] LABS: Basophils % 0.6 %; Eosinophils # 0.3 10^3/uL (0.0-0.8); Eosinophils % 4.9 %; Hematocrit 48.7 % (42.0-52.0); Hemoglobin 16.8 g/dL (11.7-16.6); Lymphocytes # 2.7 10^3/uL (0.8-4.8); Lymphocytes % 40.6 %; Mean Corpuscular HGB Conc 34.5 g/dL (30.0-36.0); Mean Corpuscular Hemoglobin 29.6 pg (28.0-34.0); Mean Corpuscular Volume 85.9 fl (80-94); Mean Platelet Volume 10.1 fL (7.4-10.4); Monocytes # 0.7 10^3/uL (0.2-0.9); Neutrophils # 2.85 10^3/uL (1.8-7.7); Neutrophils % 43.6 %; Nucleated Red Blood Cells % 0 %; Platelet Count 194 10^3/cmm (130-400); Red Blood Count 5.67 10^6/uL (4.1-5.3); Red Cell Distribution Width 12.4 % (12.1-15.1); White Blood Count 6.5 10^3/uL (4.0-10.0)
[2021-08-13 17:57] LABS: Blood Urea Nitrogen 18 mg/dL (6-20); Carbon Dioxide 29 mmol/L (22-29); Chloride 104 mmol/L (98-107); Glucose 94 mg/dL (65-115); Osmolality Calculated 294 mOsm/kg (285-295); Sodium 141 mmol/L (136-145)
[2021-08-13 18:00] LABS: Anion Gap 11.6 (5-19); Potassium 3.6 mmol/L (3.5-5.1)
== END 2021-08-13 16:10 | disposition home or self-care (01) ==
LOC: LAB 16:12
PROVIDERS: PCP Nurse Practitioner Family; Visit Provider Internal Medicine Cardiovascular Disease
DX: R07.9 Chest pain, unspecified (principal); Z86.79 Personal history of other diseases of the circulatory system
CPT/HCPCS: 36415; 80048; 85025

== ENCOUNTER 2021-08-14 05:38 | Outpatient (CLI) | payer OTHER, SELFPAY ==
[2021-08-14] VITALS (24 sets, daily range): BP systolic 105–136; BP diastolic 70–92; PULSE 50–68; RESP 4–21; TEMP 36.6–36.7; O2SAT 93–99; BMI 32.2
--- NOTE | 2021-08-14 06:00 | XACV_ITS ---
Exam Room: 1 Ht: 173 cm Wt: 96 kg BSA: 2.18 m2 Gender: Male : 1965 Any Known Allergies: No known allergies Exam Priority: Routine Procedure(s): Procedure Description: Diagnostic procedure Procedure Description: Left Heart Catheterization Procedure Description: Left ventriculography Procedure Description: Coronary Angiography Diagnostic Cath Status: Elective Diagnostic Findings * This patient has prior stents to the LAD and right coronary arteries. Frequently has atypical chest pain. Has been having chest pain for several weeks after a severe bout of COVID-19. Declined stress testing and wanted to proceed directly with coronary angiography due to his history. * There is no access via the right radial artery. Due to previous procedures in the right wrist, the right radial artery is occluded. I was able to enter the artery with a needle but was not able to pass a wire. The procedure was completed from the right common femoral artery. * Coronary angiography reveals right coronary artery dominance. Left main coronary artery is normal and bifurcates into the LAD and circumflex. Circumflex has minor nonobstructive disease. It is relatively small and gives off 3 small marginal branches. There is a stent in the proximal LAD in the mid to distal LAD. The stents are widely patent without restenosis. The right coronary artery is the dominant vessel and ends distally as the posterior descending artery and a posterior left ventricular branch. There is a stent in the mid vessel. There is some mild haziness with 20% restenosis of the stented area.. Conclusions 1. Atypical noncardiac chest pain with widely patent stents in the LAD and right coronary arteries. Normal left ventricular function. Interventional RX Recommendation: medical therapy and/or counseling Diagnostic RX Recommendation: medical therapy and/or counseling Ventriculography Ejection Fraction: 55.0 % Pressures Phase:Rest AO : 113 / 74 ( 91 ) @ 8:32:00 AM 108 / 67 ( 88 ) @ 8:37:00 AM 144 / 55 ( 91 ) @ 8:37:00 AM LV : 131 / 0 / 12 @ 8:36:00 AM 108 / -2 / 9 @ 8:37:00 AM 110 / 3 / 11 @ 8:37:00 AM Valves Phase:DefaultPhase AV : 0.0 @ 7:57:16 AM AV Mean Gradient: 0.0 @ 7:57:16 AM Clinical Evaluation EBL: 5mL-10mL Procedural Details Pre-Procedure Time Out. Identified patient by full name and date of as verbalized by the patient/guarantor. Does the consent match the physician's order: Yes. Accurate & Complete Informed Consent: Yes. Inpatient/Outpatient History & Physical on Chart: Yes. If H&P is completed, is and addenduem needed: Yes; If yes, is the addendum complete: Yes. Visualize and Verify Site with Patient/Guarantor: N/A. Relevant Radiology Images available: Yes. Pre-op teaching completed and patient verbalized understanding. The risks, benefits, and alternatives of sedation and/or procedure were discussed by physician. The patient agrees to continue. Procedure started. [facility] Clinical Fraility Score: 3: Managing Well. 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 Chest Pain Symptom Assessment: Typical Angina Symptoms. Cardiovascular Instability: No. Correct patient, site and procedure confirmed by cath team. PERRLA. Strong, equal hand collision mechanic bilaterally. Lungs clear x 5 lobes. IV Site on Arrival: 20 gauge in the right anticubital. IV Fluids: 0.9% NaCl at KVO. 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 Pre Procedural Pulses: bilateral dorsalis pedis was 3+. Pre Procedural Pulses: bilateral posterior tibial was 3+. Pre Procedural Pulses: bilateral radial was 3+. Oxygen started at 2liters/min via nasal canula. right groin was prepped with chloroprep then draped in the usual sterile fashion. right radial was prepped with chloroprep then draped in the usual sterile fashion. Physician notified. Baseline sample Acquired. HR: 50 BPM. Equipment: 6F - Radial. Physician arrived. Physician scrubbed in. Immediate Pre-Procedure Time Out. Correct Patient: Yes; Correct Procedure: Yes; Correct Site: Yes; Correct Patient Position: Yes; Correct Supplies: Yes; Dried Flammable Prep: Yes; Blood Products Available: N/A. Lidocaine 1% infiltrated to the right radial. Arterial access obtained. Unable to thread the wire in the radial, needle out. Will move to femoral access. Lidocaine 1% infiltrated to the right groin. Arterial access obtained. A 5 [place]abian JL4 catheter in over wire. Multiple views taken of left coronary artery. Catheter out. A 6 [place] JR4 catheter in over wire. EDP Sample taken: LV 131/0,12; HR: 65 BPM; SpO2: 97%. Multiple views taken of right coronary artery. Catheter out. A 6 [place]ian Angled Pig catheter in over wire. LV gram performed in JOHN @ 10 mL/second for a total of 30 mL. EDP Sample taken: LV 108/-3,9; HR: 68 BPM; SpO2: 96%. Pullback taken: LV 110/3,11; AO 108/67(88); Mean: 0mmHg, Peak to Peak: 0mmHg, SEP: 7sec/min; HR: 67 BPM; SpO2: 96%. Dr Roa reviewing cine. Dr Roa scrubbed out. Sheath(s) removed and manual pressure held until hemostasis was achieved. Sterile 4x4 and Op-site applied to the puncture site. No oozing or hematoma noted. Post sheath removal instructions were given and the patient verbalized understanding. A Manual Compression was successful obtaining hemostatsis at the Right Femoral artery insertion site. Post Procedure: Pulses reassessed and unchanged. PERRLA. Strong, equal hand collision mechanic bilaterally. No VTE prophylaxis required. Medication's Wasted: Nitro = 50 mg. Medication's Wasted: Heparin = 1000 units. Total IV fluids: 47 mL. Post-op diagnosis: CP/CAD. Complications: None. Estimated blood loss: 5mL-10mL. Responsiveness - Normal response to verbal stimuli; alert and oriented, PERRLA. Airway - Unaffected, no intervention required; spontaneous ventilation. Circulation: W/N/L, pulses unchanged. Nausea/Vomiting: No. Patient transferred by bed to 1st floor. Procedure completed. Vital chart was stopped. Access Site Site: Right Femoral artery Sheath Size: 6 Fr Hemostasis Method: Manual Compression Hemostasis Success: Successful Procedure Medications Start: 7:11 AM Stop: 7:11 AM Medication: Versed Amount: 1 mg Route: I.V. Start: 7:11 AM Stop: 7:11 AM Medication: Fentanyl Amount: 50 mcg Route: I.V. Start: 7:22 AM Stop: 7:22 AM Medication: Versed Amount: 1 mg Route: I.V. Start: 7:28 AM Stop: 7:28 AM Medication: Versed Amount: 1 mg Route: I.V. Start: 7:29 AM Stop: 7:29 AM Medication: Fentanyl Amount: 25 mcg Route: I.V. I, the attending physician, have reviewed and verified all procedure medications. Yes, all medications given per verbal order History/Risk Factors Hypertension: Yes Dyslipidemia: Yes Peripheral Arterial Disease (PAD): No Myocardial Infarction (VA): Yes Obesity: Yes Renal Disease: No Tobacco Use: Former Prior Interventions PCI: Yes CABG: No Valve Surgery: No Report Signatures Finalized by Dr. Matteo Roa MD on 08/14/2021 08:11 AM
[2021-08-14] MEDS: diphenhydrAMINE 50 mg Capsule PO (06:23)
--- NOTE | 2021-08-14 07:03 | P.HP_ITS ---
Providers/Chief Complaint Admitting Physician: jessy Primary Care Provider: Soraya Villa APN Chief Complaint: [id number] r07.89 History of Present Illness Grey Naylor is a 55 year old male who is here today for purposes of outpatient coronary angiography. He is now 55 has known coronary disease and has had several stents placed in the past. Recently he has had an infection with COVID-19 and was on oxygen for a while. He has a history of sleep apnea. He also has hypertension. I saw him in the office on July 08 when he was having a recurrence of his chest pain. He stated this was similar chest pain to what he had previously before stents were placed. Pain was not as severe but he was concerned about it. He was put on my schedule as an urgent patient. He was taking cinnamon which he thought made it better. He was not using any nitroglycerin because he felt like he did not need it. He wanted to try to observe this for several days and see and if it continued he wanted to schedule coronary angiography. I told him to call back on Thursday of that week. He did and we scheduled the angiogram and on the day he was to have it he said he did not realize it was scheduled so he canceled it. He is now here today for the procedure. Medications/Allergies Home Medications Medication Instructions Recorded Confirmed Last Taken Type coenzyme Q10 10 mg capsule 10 mg PO DAILY cap 11/15/19 08/13/21 08/13/21 22:00 History omega-3 fatty acids 1,000 mg 3,000 mg PO DAILY cap 11/15/19 08/13/21 08/13/21 22:00 History capsule (Fish Oil Concentrate) alprazolam 0.25 mg tablet (Xanax) 0.25 mg PO DAILY PRN 02/07/20 08/13/21 Unknown History nitroglycerin 0.4 mg sublingual 0.4 mg SUBLINGUAL Q5M PRN #25 tab 09/17/20 08/13/21 08/13/21 22:00 Rx tablet (Nitrostat) cinnamon bark 500 mg capsule 500 mg PO DAILY 10/30/20 08/13/21 08/13/21 22:00 History (Cinnamon) clopidogrel 75 mg tablet (Plavix) 75 mg PO DAILY #90 tab 11/01/20 08/13/21 08/13/21 22:00 Rx isosorbide mononitrate 60 mg 60 mg PO DAILY #90 tab 11/01/20 08/13/21 08/13/21 22:00 Rx tablet,extended release 24 hr rosuvastatin 20 mg tablet 20 mg PO DAILY #90 tab 12/20/20 08/13/21 08/13/21 22:00 Rx metoprolol tartrate 50 mg tablet 50 mg PO BID #60 tab 01/25/21 08/13/21 08/13/21 22:00 Rx lisinopril 40 mg tablet 20 mg PO DAILY #90 tab 03/25/21 08/13/21 08/13/21 22:00 Rx chlorthalidone 25 mg tablet 25 mg PO DAILY 04/02/21 08/13/21 08/13/21 22:00 History cholecalciferol (vitamin D3) 125 125 mcg PO DAILY 04/02/21 08/13/21 08/13/21 22:00 History mcg (5,000 unit) capsule zinc 50 mg tablet 50 mg PO DAILY 04/02/21 08/13/21 08/13/21 22:00 History pantoprazole 40 mg tablet,delayed 40 mg PO DAILY #90 tab 05/28/21 08/13/21 08/13/21 22:00 Rx release ascorbic acid (vitamin C) 500 mg 500 mg PO DAILY cap 07/08/21 08/13/21 08/13/21 22:00 History capsule aspirin 81 mg tablet,delayed 81 mg PO BID tab 07/08/21 08/13/21 08/13/21 22:00 History release (Adult Low Dose Aspirin) albuterol sulfate 90 mcg/actuation 2 puff INHALATION QID PRN #8.5 g 08/05/21 08/13/21 Unknown Rx aerosol inhaler Allergies Allergy/AdvReac Type Severity Reaction Status Date / Time No Known Allergies Allergy Verified 08/14/21 06:24 PFSH Acute PFSH: Medical History History of hypertension Hx of arteriosclerotic cardiovascular disease Hx of gastroesophageal reflux (GERD) Hx of myocardial infarction Surgical History History of carpal tunnel release of both wrists Hx of coronary angioplasty Family History Mother CHF (congestive heart failure) COPD (chronic obstructive pulmonary disease) Social History Smoking and tobacco status: former smoker Vitals/I&O/Wt Last Vital Signs Temp 98.1 F 08/14/21 06:33 Pulse 51 L 08/14/21 06:33 Resp 16 08/14/21 06:33 BP 136/83 08/14/21 06:33 Pulse Ox 95 08/14/21 06:33 Weight last 48 hrs Weight 212 lb Physical Exam Narrative: GENERAL: Generally looks and feels well HEENT: Exam within normal limits. NECK: Supple without jugular vein distention. The carotid upstroke is normal without bruits. BACK: Exam normal. LUNGS: Clear. HEART: Regular rate and rhythm. ABDOMEN: Benign without organomegaly or tenderness. EXTREMITIES: No edema. NEUROLOGIC: Exam normal. SKIN: Unremarkable. A&P Assessment and plan (1) Chest pain: Status: Acute (2) Chronic respiratory failure with hypoxia: Status: Acute (3) COVID-19: Status: Acute (4) Sleep apnea: Status: Acute (5) History of coronary artery disease: Status: Acute (6) History of hypertension: Status: Acute Plan Coronary angiography as an outpatient today. Attestations Medical Necessity Statement*: Patient is having outpatient angiography. If it is unremarkable he will go home today. Coding Level of Care Code New Pt Acute Medical Accounting Clerk for g Fwd Patient Type New History Detailed Exam Detailed Medical Decision Making Moderate Complexity Diagnoses Chest pain R07.9 Chronic respiratory failure with hypoxia J96.11 COVID-19 U07.1 Sleep apnea G47.30 History of coronary artery disease Z86.79 History of hypertension Z86.79
--- NOTE | 2021-08-14 08:00 | PC.NURSE ---
recieeved report from laboratory worker. fem site CDI, no s/s of hematoma. pt a/o. reviewed orders, vital signs set for q15min, call light in reach. patient states he just wants to sleep for now.
[2021-08-14] MEDS: sodium chloride 0.9% 1,000 ML 100 ML IV (08:17)
--- NOTE | 2021-08-14 10:20 | PC.CHAP ---
Pastoral Care Encounter/Spiritual Assessment Type of Contact [] Declined hall coordinator visit [] Patient/Family/Request visit [] Outpatient visit [] Follow-up visit [] Physician referral [] Code/Alert [x] Routine visit [] Staff referral [] Actively dying [x] Patient sleeping [] Family support [] [] Out of room [] Palliative care [] [] Receiving care in room [] Pre-surgical visit [] Trauma [] Long length of stay [] ICU visit [] Other: Relational/Emotional Strength [] Patient feels connected with others/family/visitors/staff [] Distress [] Loneliness/isolation [] Abandonment Spirituality of Patient [] Person of Mary [] Attends Pentecostal of their Mary [] Believes in Prayer [] Reads Bible or Caodaism materials [] There are Spiritual issues to be addressed 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 [x] Prayer [] Active listening [] Non-anxious presence [] Spiritual/emotional support [] Crisis/trauma care [] Spiritual counseling [] Bereavement support [] Provided bereavement packet [] Provided Bible/devotional materials [] Provided toy/stuffed animal, coloring book to patient or family member [] Provided Communion [] Anointing/[place] [] Salvation [x] Completed spiritual assessment [] Other: Impact on Illness or Injury [] Angry [] Fearful [] Anxious [] Often cries [] Exhaustion [] Unable to work [] Unable to attend baptism [] Unable to walk/stand [] Unable to read [] Unable to drive [] Unable to eat/drink [] Unable to sleep [] Unable to be with family [] Patient intubated [] Other: Summary Time spent with patient
--- NOTE | 2021-08-14 11:48 | PM.MISC ---
Miscellaneous Note Note: Grey underwent coronary angiography today as an outpatient. He has remote stents to his LAD in 2 places and to his right in one spot. He has had intermittent atypical chest pain over the years and has had a recurrence of this in the last several weeks. Angiography revealed patent stents throughout with perhaps 10 to 15% narrowing in the right coronary artery stent. No intervention was required. Today he has normal left ventricular function without wall motion disturbances. He will be discharged home later today. He has been instructed to not operate a vehicle today and not to lift anything over 5 pounds for 2 days. He will be seen in a week for groin check and chemistry panel.
--- NOTE | 2021-08-14 14:42 | PC.NURSE ---
pt up from bedrest at 1300. ambulated to bathroom. Able to void without difficulty. PT ambulated around room. Cath site cdi, no s/s of bleeding or hematoma. good pedal pulses present. Discharge instructions reviewed with patient and daughter. pt verbalized understanding and has no further questions at this time. No changes to medication regimen. piv dc'd. vss, cath site inspected just prior to discharge. pt left via wheelchair to private vehicle.
== END 2021-08-14 14:45 | disposition home or self-care (01) ==
LOC: CCL 05:44 → CSU 08:07
PROVIDERS: PCP Nurse Practitioner Family; Visit Provider Internal Medicine Cardiovascular Disease
DX: R07.89 Other chest pain (principal); I25.10 Atherosclerotic heart disease of native coronary artery without angina pectoris; Z95.5 Presence of coronary angioplasty implant and graft; Z86.16 Personal history of COVID-19; G47.30 Sleep apnea, unspecified; I10 Essential (primary) hypertension; Z79.82 Long term (current) use of aspirin; K21.9 Gastro-esophageal reflux disease without esophagitis; I25.2 Old myocardial infarction; Z87.891 Personal history of nicotine dependence
CPT/HCPCS: 36415; 93452; 93458; 96360; 99152; 99153; C1769; C1887; C1894; J1644; J2250; J3010; J3490; J7030; Q0163; Q9967

== ENCOUNTER → 2021-09-03 15:19 | Outpatient (BNVA) | payer OTHER, SELFPAY | PROVIDERS: PCP Nurse Practitioner Family; Visit Provider Nurse Practitioner Family | DX: Z86.79 Personal history of other diseases of the circulatory system (principal) | CPT/HCPCS: 80048 ==

== ENCOUNTER 2022-02-11 13:00 | Outpatient (CLI) | payer OTHER, SELFPAY | END 2022-02-11 13:01 | disposition home or self-care (01) | LOC: SLEEP 02-13 16:51 | PROVIDERS: PCP Nurse Practitioner Family; Visit Provider Internal Medicine Critical Care Medicine | DX: G47.34 Idiopathic sleep related nonobstructive alveolar hypoventilation (principal) | CPT/HCPCS: 94762 ==

== ENCOUNTER → 2022-08-12 11:19 | Outpatient (BNVA) | payer OTHER, SELFPAY | PROVIDERS: PCP Nurse Practitioner Family; Visit Provider Nurse Practitioner Family | DX: R05.8 Other specified cough (principal); U09.9 Post COVID-19 condition, unspecified | CPT/HCPCS: 71046 ==

== ENCOUNTER 2023-04-02 12:25 | Outpatient (CLI) | payer OTHER, SELFPAY | END 2023-04-02 12:26 | disposition home or self-care (01) | PROVIDERS: PCP Nurse Practitioner Family; Visit Provider Internal Medicine Pulmonary Disease | DX: R06.02 Shortness of breath (principal) | CPT/HCPCS: 94010; 94726; 94729 ==